=== PATIENT | female | born 1950 | race Caucasian/White ===

== ENCOUNTER 2017-06-02 21:00 | Inpatient (IN) | payer MEDICAID, MEDICARE, OTHER, SELFPAY ==
[~2017-06-02] VITALS: Ht 165.1 cm; Wt 51.0 kg
[2017-06-02] MEDS ORDERED: ADENOSINE 6 MG/2 ML IVPush ONE ×3 (21:30→22:30)
[2017-06-02] MEDS ORDERED: SODIUM CHLORIDE 0.9% 1,000ML IVBOLUS ONE (21:30)
[2017-06-02] MEDS ORDERED: SODIUM CHLORIDE FLUSH 10ML SYR IVF ONE (21:30)
[2017-06-02] MEDS ORDERED: ADENOSINE 6 MG/2 ML ONE ×3 (21:31→22:23)
[2017-06-02 21:59] LABS: HEMATOCRIT 39.7 % (34.6-47.8); HEMOGLOBIN 13.3 g/dL (11.7-16.4); WHITE BLOOD COUNT 8.3 x10^3/uL (3.4-10)
[2017-06-02 22:08] LABS: ASPARTATE AMINO TRANSFERASE 36 U/L (15-37); BLOOD UREA NITROGEN 11 mg/dL (7-18)
[2017-06-02 22:13] LABS: IS PT STATUS REG ER OR PRE ER? YES
[2017-06-02] MEDS ORDERED: ONDANSETRON 2MG/ML, 2ML ONE (22:23)
[2017-06-02] MEDS ORDERED: ONDANSETRON 2MG/ML, 2ML IVPush ONE (23:00)
[2017-06-02] MEDS ORDERED: PROPOFOL 10 MG/ML, 20ML ONE (23:47)
[2017-06-02 23:51] LABS: DAU SCREEN DISCLAIMER
[2017-06-02 23:56] LABS: PATH.CAST-FLAG NOT PRESENT; SPERM-FLAG NOT PRESENT; SRC-FLAG NOT PRESENT; XTAL-FLAG NOT PRESENT; YLC-FLAG NOT PRESENT
[2017-06-03] MEDS ORDERED: PROPOFOL 10 MG/ML, 20ML IVPush ONE
[2017-06-03] MEDS ORDERED: SODIUM CHLORIDE 0.9% 1,000ML IVBOLUS ONE (00:30)
[2017-06-03] MEDS ORDERED: LORazepam 2 MG/ML, 1ML IVPush PRN (00:30)
[2017-06-03] MEDS ORDERED: ASPIRIN 325 MG TABLET PO ONE (00:30)
[2017-06-03] MEDS: AMIODARONE 150 MG in DEXTROSE 5% 100 ML IV ONE ×2 (00:30→01:34)
[2017-06-03] MEDS ORDERED: ONDANSETRON 2MG/ML, 2ML IV PRN (00:30)
[2017-06-03] MEDS: METOPROLOL TARTRATE 25 MG TABLET PO SCH ×2 (00:30→07:44)
[2017-06-03] MEDS ORDERED: AMIODARONE 900 MG in DEXTROSE 5% 482 ML IV PRN (00:30)
[2017-06-03] MEDS ORDERED: HYDROmorphone 2 MG/ML, 1ML IVPush PRN (00:30)
[2017-06-03] MEDS ORDERED: FILTER 0.22 MICRON IV ONE (00:30)
[2017-06-03] MEDS ORDERED: OMNIPAQUE 350 MG/ML, 100ML BOTTLE ONE (02:43)
[2017-06-03] MEDS ORDERED: ENOXAPARIN 40 MG/0.4 ML SQ SCH (03:00)
[2017-06-03 03:05] VITALS: BP 142/90
[2017-06-03 04:18] LABS: IS PT STATUS REG ER OR PRE ER? NO
[2017-06-03] MEDS ORDERED: ASPIRIN 325 MG TABLET EC ONE (06:25)
[2017-06-03 07:19] VITALS: BP 120/80
[2017-06-03] MEDS: SODIUM CHLORIDE FLUSH 10ML SYR IVF SCH ×2 (07:46→20:35)
[2017-06-03] MEDS: FAMOTIDINE 20 MG/2 ML IVPush SCH ×2 (07:46→21:43)
[2017-06-03] MEDS ORDERED: HALOPERIDOL 5 MG/ML ONE (08:45)
[2017-06-03] MEDS ORDERED: HALOPERIDOL 5 MG/ML IM ONE (09:00)
[2017-06-03] MEDS: PROPYLTHIOURACIL 50 MG TABLET PO SCH ×3 (11:44→20:36)
[2017-06-03] MEDS: HYDROCORTISONE 100 MG INJ. IVPush SCH ×2 (11:44→19:04)
[2017-06-03] MEDS: ESMOLOL/NS PMX 250 ML IV PRN (11:51)
[2017-06-03 12:04] LABS: IS PT STATUS REG ER OR PRE ER? NO
[2017-06-03] MEDS: POTASSIUM IODIDE ORAL.SOLN 1 GM/ML PO SCH ×2 (13:15→20:18)
[2017-06-03] MEDS: SODIUM CHLORIDE 0.9% 1,000 ML IV SCH ×2 (14:14→20:18)
[2017-06-03] MEDS: VANCOMYCIN 50 MG/ML ORAL SUSP PO SCH ×2 (14:15→20:18)
[2017-06-03] MEDS ORDERED: CHOLESTYRAMINE LIGHT 4GM PACKET PO SCH (15:00)
[2017-06-03 15:01] LABS: IS PT STATUS REG ER OR PRE ER? NO
[2017-06-03] MEDS: CHOLESTYRAMINE LIGHT 4GM PACKET PO SCH ×2 (16:00→22:00)
[2017-06-03] MEDS ORDERED: HEPARIN 5,000 UNITS/ML, 1ML IV ONE (18:30)
[2017-06-03] MEDS ORDERED: HEPARIN 25,000 UNITS/500ML PMX 500 ML IV PRN (18:30)
[2017-06-03] MEDS: ATORVASTATIN 40 MG TABLET PO SCH (20:36)
[2017-06-04 00:57] LABS: IS PT STATUS REG ER OR PRE ER? NO
[2017-06-04] MEDS: PROPYLTHIOURACIL 50 MG TABLET PO SCH ×6 (01:08→20:48)
[2017-06-04] MEDS: VANCOMYCIN 50 MG/ML ORAL SUSP PO SCH ×4 (02:20→19:47)
[2017-06-04] MEDS: POTASSIUM IODIDE ORAL.SOLN 1 GM/ML PO SCH ×4 (02:20→19:48)
[2017-06-04] MEDS: HYDROCORTISONE 100 MG INJ. IVPush SCH ×3 (03:17→18:02)
[2017-06-04] MEDS: SODIUM CHLORIDE 0.9% 1,000 ML IV SCH ×2 (04:33→17:08)
[2017-06-04 05:00] VITALS: BP 152/95
[2017-06-04 05:08] LABS: HEMATOCRIT 30.9 % (34.6-47.8); HEMOGLOBIN 10.4 g/dL (11.7-16.4)
[2017-06-04 05:14] LABS: BLOOD UREA NITROGEN 18 mg/dL (7-18)
[2017-06-04 05:17] LABS: ASPARTATE AMINO TRANSFERASE 143 U/L (15-37)
[2017-06-04] MEDS: HEPARIN 5,000 UNITS/ML, 1ML IV PRN ×2 (05:33→13:05)
[2017-06-04] MEDS: ESMOLOL/NS PMX 250 ML IV PRN (05:37)
[2017-06-04] MEDS: CHOLESTYRAMINE 4GM PACKET PO SCH ×4 (06:00→21:55)
[2017-06-04] MEDS ORDERED: ENOXAPARIN 40 MG/0.4 ML SQ SCH (07:00)
[2017-06-04] MEDS ORDERED: MAGNESIUM SULFATE PMX 4GM/100M 100 ML IVPB ONE (09:00)
[2017-06-04] MEDS: FAMOTIDINE 20 MG/2 ML IVPush SCH ×2 (09:31→20:47)
[2017-06-04] MEDS: SODIUM CHLORIDE FLUSH 10ML SYR IVF SCH ×2 (09:32→20:46)
[2017-06-04 12:06] LABS: HIT LOT CART23835/KIT23844
[2017-06-04 14:01] LABS: HIT OBC PASS
[2017-06-04 14:06] LABS: HIT RESULT POSITIVE (NEGATIVE)
[2017-06-04] MEDS: THIAMINE 100 MG in SODIUM CHLORIDE 0.9% 50 ML IV SCH (14:25)
[2017-06-04] MEDS: METOPROLOL TARTRATE 25 MG TABLET PO SCH (18:03)
[2017-06-04] MEDS: ATORVASTATIN 40 MG TABLET PO SCH (20:47)
[2017-06-05] MEDS: SODIUM CHLORIDE 0.9% 1,000 ML IV SCH ×2 (00:23→08:56)
[2017-06-05] MEDS: METOPROLOL TARTRATE 25 MG TABLET PO SCH ×2 (00:24→05:43)
[2017-06-05] MEDS: PROPYLTHIOURACIL 50 MG TABLET PO SCH ×6 (01:55→22:56)
[2017-06-05] MEDS: POTASSIUM IODIDE ORAL.SOLN 1 GM/ML PO SCH ×4 (01:58→21:00)
[2017-06-05] MEDS: VANCOMYCIN 50 MG/ML ORAL SUSP PO SCH ×4 (01:58→20:51)
[2017-06-05] MEDS: HYDROCORTISONE 100 MG INJ. IVPush SCH ×3 (03:25→19:36)
[2017-06-05 04:17] LABS: HEMATOCRIT 31.6 % (34.6-47.8); HEMOGLOBIN 10.5 g/dL (11.7-16.4); WHITE BLOOD COUNT 9.3 x10^3/uL (3.4-10)
[2017-06-05 04:29] LABS: ASPARTATE AMINO TRANSFERASE 220 U/L (15-37); BLOOD UREA NITROGEN 21 mg/dL (7-18)
[2017-06-05 05:00] VITALS: BP 144/74
[2017-06-05] MEDS: CHOLESTYRAMINE 4GM PACKET PO SCH ×4 (06:30→20:51)
[2017-06-05] MEDS: FAMOTIDINE 20 MG/2 ML IVPush SCH ×2 (08:41→20:51)
[2017-06-05] MEDS: SODIUM CHLORIDE FLUSH 10ML SYR IVF SCH ×2 (08:44→20:52)
[2017-06-05] MEDS: CLOPIDOGREL 75 MG TABLET PO SCH (08:44)
[2017-06-05 09:14] LABS: ABG COLLECTION SITE LEFT RADIAL
[2017-06-05 09:15] LABS: COLLATERAL CIRCULATION TESTING NORMAL; FIO2 ROOM AIR %
[2017-06-05] MEDS ORDERED: SODIUM CHLORIDE 0.45% 1,000 ML IV SCH (09:30)
[2017-06-05] MEDS: SODIUM CHLORIDE 0.45% 1,000 ML IV SCH (11:19)
[2017-06-05] MEDS: METOPROLOL TARTRATE 50 MG TABLET PO SCH ×2 (11:21→20:51)
[2017-06-05] MEDS: THIAMINE 100 MG in SODIUM CHLORIDE 0.9% 50 ML IV SCH (14:23)
[2017-06-05] MEDS: ATORVASTATIN 40 MG TABLET PO SCH (20:51)
[2017-06-05] MEDS: LEVETIRACETAM 500 MG TABLET PO SCH (22:56)
[2017-06-06] MEDS: VANCOMYCIN 50 MG/ML ORAL SUSP PO SCH ×4 (02:11→20:03)
[2017-06-06] MEDS: POTASSIUM IODIDE ORAL.SOLN 1 GM/ML PO SCH ×4 (02:11→20:03)
[2017-06-06] MEDS: HYDROCORTISONE 100 MG INJ. IVPush SCH ×3 (03:03→20:02)
[2017-06-06] MEDS: PROPYLTHIOURACIL 50 MG TABLET PO SCH ×5 (03:06→20:02)
[2017-06-06] MEDS: METOPROLOL TARTRATE 50 MG TABLET PO SCH ×3 (03:58→20:02)
[2017-06-06 05:00] VITALS: BP 157/85
[2017-06-06] MEDS: SODIUM CHLORIDE 0.45% 1,000 ML IV SCH (05:54)
[2017-06-06] MEDS: CHOLESTYRAMINE 4GM PACKET PO SCH ×4 (06:07→20:03)
[2017-06-06 06:48] LABS: HEMOGLOBIN 11.8 g/dL (11.7-16.4); WHITE BLOOD COUNT 7.6 x10^3/uL (3.4-10)
[2017-06-06 06:55] LABS: ASPARTATE AMINO TRANSFERASE 213 U/L (15-37); BLOOD UREA NITROGEN 20 mg/dL (7-18)
[2017-06-06 07:13] LABS: DIFF TOTAL CELLS COUNTED 100 CELL DIFF
[2017-06-06 07:21] LABS: VERIFY COUNTS? YES
[2017-06-06 07:22] LABS: ANISOCYTOSIS 1+; OVALOCYTES 1+
[2017-06-06 07:23] LABS: POLYCHROMASIA 1+
[2017-06-06] MEDS: CLOPIDOGREL 75 MG TABLET PO SCH (09:05)
[2017-06-06] MEDS: FAMOTIDINE 20 MG/2 ML IVPush SCH ×2 (09:05→20:03)
[2017-06-06] MEDS: LEVETIRACETAM 500 MG TABLET PO SCH ×2 (09:05→20:03)
[2017-06-06] MEDS: SODIUM CHLORIDE FLUSH 10ML SYR IVF SCH ×2 (09:06→20:04)
[2017-06-06 13:08] VITALS: BP 164/97
[2017-06-06] MEDS: THIAMINE 100 MG in SODIUM CHLORIDE 0.9% 50 ML IV SCH (14:59)
[2017-06-06 16:18] VITALS: BP 161/90
[2017-06-06 19:58] VITALS: BP 149/85
[2017-06-06] MEDS: ATORVASTATIN 40 MG TABLET PO SCH (20:03)
[2017-06-07] MEDS: PROPYLTHIOURACIL 50 MG TABLET PO SCH ×7 (00:46→23:53)
[2017-06-07] MEDS: HYDROCORTISONE 100 MG INJ. IVPush SCH ×3 (03:22→21:18)
[2017-06-07] MEDS: POTASSIUM IODIDE ORAL.SOLN 1 GM/ML PO SCH ×4 (03:22→23:53)
[2017-06-07 03:23] VITALS: BP 140/82
[2017-06-07] MEDS: METOPROLOL TARTRATE 50 MG TABLET PO SCH ×3 (03:23→23:53)
[2017-06-07] MEDS: VANCOMYCIN 50 MG/ML ORAL SUSP PO SCH ×4 (03:23→21:18)
[2017-06-07] MEDS: CHOLESTYRAMINE 4GM PACKET PO SCH ×4 (05:49→21:21)
[2017-06-07 05:56] LABS: HEMATOCRIT 32.6 % (34.6-47.8); HEMOGLOBIN 10.9 g/dL (11.7-16.4); WHITE BLOOD COUNT 9.8 x10^3/uL (3.4-10)
[2017-06-07 06:21] LABS: ASPARTATE AMINO TRANSFERASE 114 U/L (15-37); BLOOD UREA NITROGEN 18 mg/dL (7-18)
[2017-06-07 08:45] VITALS: BP 168/100
[2017-06-07] MEDS: FAMOTIDINE 20 MG/2 ML IVPush SCH ×2 (08:54→21:18)
[2017-06-07] MEDS: LEVETIRACETAM 500 MG TABLET PO SCH ×2 (08:54→21:19)
[2017-06-07] MEDS: CLOPIDOGREL 75 MG TABLET PO SCH (08:54)
[2017-06-07] MEDS: SODIUM CHLORIDE FLUSH 10ML SYR IVF SCH ×2 (08:54→21:19)
[2017-06-07 14:30] VITALS: BP 164/86
[2017-06-07] MEDS: THIAMINE 100 MG in SODIUM CHLORIDE 0.9% 50 ML IV SCH (17:44)
[2017-06-07] MEDS: LISINOPRIL 10 MG TABLET PO SCH (17:45)
[2017-06-07 20:40] VITALS: BP 174/93
[2017-06-07] MEDS: ATORVASTATIN 40 MG TABLET PO SCH (21:18)
[2017-06-07] MEDS: hydrALAzine 20 MG/ML, 1ML IVPush PRN (21:45)
[2017-06-08 01:08] VITALS: BP_SYST 177; BP_SYST 186; BP_DIAS 84; BP_DIAS 91
[2017-06-08] MEDS: hydrALAzine 20 MG/ML, 1ML IVPush PRN (02:17)
[2017-06-08] MEDS: HYDROCORTISONE 100 MG INJ. IVPush SCH ×3 (03:56→21:04)
[2017-06-08] MEDS: VANCOMYCIN 50 MG/ML ORAL SUSP PO SCH ×4 (03:56→21:11)
[2017-06-08 04:04] VITALS: BP 164/76
[2017-06-08] MEDS: PROPYLTHIOURACIL 50 MG TABLET PO SCH ×5 (04:51→21:06)
[2017-06-08 05:28] LABS: ABG COLLECTION SITE LEFT RADIAL; COLLATERAL CIRCULATION TESTING NORMAL
[2017-06-08 05:33] LABS: HEMOGLOBIN 10.8 g/dL (11.7-16.4); WHITE BLOOD COUNT 9.7 x10^3/uL (3.4-10)
[2017-06-08 05:40] LABS: ASPARTATE AMINO TRANSFERASE 45 U/L (15-37); BLOOD UREA NITROGEN 16 mg/dL (7-18)
[2017-06-08] MEDS: POTASSIUM IODIDE ORAL.SOLN 1 GM/ML PO SCH ×4 (06:09→21:00)
[2017-06-08] MEDS: CHOLESTYRAMINE 4GM PACKET PO SCH ×3 (06:09→15:35)
[2017-06-08] MEDS: METOPROLOL TARTRATE 50 MG TABLET PO SCH ×3 (06:09→20:30)
[2017-06-08] MEDS: CLOPIDOGREL 75 MG TABLET PO SCH (08:29)
[2017-06-08] MEDS: LEVETIRACETAM 500 MG TABLET PO SCH ×2 (08:29→21:07)
[2017-06-08 08:41] VITALS: BP 163/91
[2017-06-08] MEDS: LISINOPRIL 10 MG TABLET PO SCH (10:27)
[2017-06-08] MEDS: FAMOTIDINE 20 MG/2 ML IVPush SCH (10:28)
[2017-06-08] MEDS: SODIUM CHLORIDE FLUSH 10ML SYR IVF SCH (10:28)
[2017-06-08] MEDS ORDERED: POTASSIUM PHOSPHATE 44 MEQ in SODIUM CHLORIDE 0.9% 500 ML IV ONE (12:00)
[2017-06-08 13:29] VITALS: BP 177/83
[2017-06-08] MEDS: THIAMINE 100 MG in SODIUM CHLORIDE 0.9% 50 ML IV SCH (16:24)
[2017-06-08] MEDS ORDERED: ALBUTEROL/IPRATROPIUM 2.5MG/0.5MG, 3 ML ONE (16:43)
[2017-06-08] MEDS ORDERED: ALBUTEROL/IPRATROPIUM 2.5MG/0.5MG, 3 ML NPPB PRN (17:30)
[2017-06-08] MEDS: ALBUTEROL/IPRATROPIUM 2.5MG/0.5MG, 3 ML NPPB SCH ×2 (18:00→22:00)
[2017-06-08 19:46] VITALS: BP 161/89
[2017-06-08] MEDS: ATORVASTATIN 40 MG TABLET PO SCH (21:07)
[2017-06-08] MEDS: PANTOPROZOLE 40MG TABLET PO SCH (21:07)
[2017-06-08] MEDS ORDERED: FUROSEMIDE 40 MG/4 ML IV ONE (23:00)
[2017-06-08 23:02] VITALS: BP 160/76
[2017-06-08 23:16] LABS: ABG COLLECTION SITE LEFT RADIAL; COLLATERAL CIRCULATION TESTING NORMAL
[2017-06-09] MEDS: PROPYLTHIOURACIL 50 MG TABLET PO SCH ×6 (00:30→21:34)
[2017-06-09] MEDS: MEROPENEM 1 GM in SODIUM CHLORIDE 0.9% 100 ML IV SCH ×3 (00:39→17:51)
[2017-06-09] MEDS: SODIUM CHLORIDE FLUSH 10ML SYR IVF SCH ×3 (00:39→21:33)
[2017-06-09] MEDS: POTASSIUM IODIDE ORAL.SOLN 1 GM/ML PO SCH ×4 (03:00→21:34)
[2017-06-09] MEDS: HYDROCORTISONE 100 MG INJ. IVPush SCH ×3 (03:34→19:42)
[2017-06-09 04:31] LABS: ABG COLLECTION SITE LEFT RADIAL; COLLATERAL CIRCULATION TESTING NORMAL
[2017-06-09 04:52] LABS: ASPARTATE AMINO TRANSFERASE 29 U/L (15-37); BLOOD UREA NITROGEN 16 mg/dL (7-18)
[2017-06-09 04:53] LABS: HEMATOCRIT 31.8 % (34.6-47.8); HEMOGLOBIN 10.8 g/dL (11.7-16.4); WHITE BLOOD COUNT 8.8 x10^3/uL (3.4-10)
[2017-06-09] MEDS: VANCOMYCIN 50 MG/ML ORAL SUSP PO SCH ×4 (05:17→21:34)
[2017-06-09] MEDS: METOPROLOL TARTRATE 50 MG TABLET PO SCH ×2 (05:17→17:53)
[2017-06-09] MEDS ORDERED: POTASSIUM CHLORIDE 20 MEQ TAB.ER.PRT PO ONE (06:30)
[2017-06-09] MEDS: ALBUTEROL/IPRATROPIUM 2.5MG/0.5MG, 3 ML NPPB SCH ×3 (08:20→20:00)
[2017-06-09] MEDS: PANTOPROZOLE 40MG TABLET PO SCH ×2 (08:45→21:34)
[2017-06-09] MEDS: CLOPIDOGREL 75 MG TABLET PO SCH (08:45)
[2017-06-09] MEDS: LEVETIRACETAM 500 MG TABLET PO SCH ×2 (08:45→21:34)
[2017-06-09] MEDS: LISINOPRIL 10 MG TABLET PO SCH (08:46)
[2017-06-09] MEDS ORDERED: POTASSIUM CHLORIDE 20 MEQ TAB.ER.PRT PO SCH (12:30)
[2017-06-09] MEDS: ACETAMINOPHEN 325 MG TABLET PO PRN ×2 (14:23→22:34)
[2017-06-09] MEDS ORDERED: ALBUTEROL/IPRATROPIUM 2.5MG/0.5MG, 3 ML NPPB SCH (16:00)
[2017-06-09] MEDS: THIAMINE 100 MG in SODIUM CHLORIDE 0.9% 50 ML IV SCH (17:51)
[2017-06-09] MEDS: ATORVASTATIN 40 MG TABLET PO SCH (21:34)
[2017-06-10] MEDS: MEROPENEM 1 GM in SODIUM CHLORIDE 0.9% 100 ML IV SCH ×2 (00:19→08:37)
[2017-06-10] MEDS: PROPYLTHIOURACIL 50 MG TABLET PO SCH ×2 (00:29→05:40)
[2017-06-10] MEDS: METOPROLOL TARTRATE 50 MG TABLET PO SCH ×2 (00:29→21:06)
[2017-06-10] MEDS: POTASSIUM IODIDE ORAL.SOLN 1 GM/ML PO SCH (04:28)
[2017-06-10] MEDS: VANCOMYCIN 50 MG/ML ORAL SUSP PO SCH ×4 (04:29→21:05)
[2017-06-10] MEDS: HYDROCORTISONE 100 MG INJ. IVPush SCH (04:29)
[2017-06-10 04:48] LABS: BLOOD UREA NITROGEN 11 mg/dL (7-18)
[2017-06-10] MEDS: POTASSIUM CHLORIDE 20 MEQ TAB.ER.PRT PO SCH ×3 (05:42→21:06)
[2017-06-10] MEDS: ALBUTEROL/IPRATROPIUM 2.5MG/0.5MG, 3 ML NPPB SCH (07:44)
[2017-06-10] MEDS: PANTOPROZOLE 40MG TABLET PO SCH ×2 (08:33→20:03)
[2017-06-10] MEDS: CLOPIDOGREL 75 MG TABLET PO SCH (08:34)
[2017-06-10] MEDS: LISINOPRIL 10 MG TABLET PO SCH (08:34)
[2017-06-10] MEDS: LEVETIRACETAM 500 MG TABLET PO SCH ×2 (08:34→21:06)
[2017-06-10] MEDS: SODIUM CHLORIDE FLUSH 10ML SYR IVF SCH ×2 (08:37→20:57)
[2017-06-10] MEDS: FUROSEMIDE 20 MG TABLET PO SCH (09:52)
[2017-06-10 12:30] VITALS: BP 133/67
[2017-06-10] MEDS: THIAMINE 100 MG in SODIUM CHLORIDE 0.9% 50 ML IV SCH (18:36)
[2017-06-10 19:09] VITALS: BP 148/68
[2017-06-10] MEDS: ATORVASTATIN 40 MG TABLET PO SCH (21:06)
[2017-06-11 01:40] VITALS: BP 142/69
[2017-06-11] MEDS: VANCOMYCIN 50 MG/ML ORAL SUSP PO SCH ×4 (03:15→21:10)
[2017-06-11 06:17] LABS: BLOOD UREA NITROGEN 14 mg/dL (7-18)
[2017-06-11 06:58] VITALS: BP 138/66
[2017-06-11] MEDS: SODIUM CHLORIDE FLUSH 10ML SYR IVF SCH ×2 (09:00→21:11)
[2017-06-11] MEDS: POTASSIUM CHLORIDE 20 MEQ TAB.ER.PRT PO SCH ×2 (09:18→21:10)
[2017-06-11] MEDS: FUROSEMIDE 20 MG TABLET PO SCH (09:19)
[2017-06-11] MEDS: CLOPIDOGREL 75 MG TABLET PO SCH (09:19)
[2017-06-11] MEDS: PANTOPROZOLE 40MG TABLET PO SCH ×2 (09:20→21:10)
[2017-06-11] MEDS: LISINOPRIL 10 MG TABLET PO SCH (09:20)
[2017-06-11] MEDS: METOPROLOL TARTRATE 50 MG TABLET PO SCH ×2 (09:20→21:10)
[2017-06-11] MEDS: LEVETIRACETAM 500 MG TABLET PO SCH ×2 (09:20→21:10)
[2017-06-11] MEDS ORDERED: MAGNESIUM SULFATE PMX 2GM/50ML 50 ML IV ONE (11:00)
[2017-06-11 13:56] VITALS: BP 138/74
[2017-06-11] MEDS ORDERED: POTASSIUM CHLORIDE 20 MEQ TAB.ER.PRT PO SCH ×2 (16:00)
[2017-06-11] MEDS ORDERED: hydrALAzine 20 MG/ML, 1ML IVPush PRN (16:00)
[2017-06-11] MEDS ORDERED: ONDANSETRON 2MG/ML, 2ML IV PRN (16:00)
[2017-06-11] MEDS ORDERED: ACETAMINOPHEN 325 MG TABLET PO PRN (16:00)
[2017-06-11] MEDS: THIAMINE 100 MG in SODIUM CHLORIDE 0.9% 50 ML IV SCH (16:53)
[2017-06-11 19:04] VITALS: BP 127/65
[2017-06-11] MEDS ORDERED: SODIUM CHLORIDE FLUSH 10ML SYR IVF SCH (21:00)
[2017-06-11] MEDS: ATORVASTATIN 40 MG TABLET PO SCH (21:10)
[2017-06-12 01:21] VITALS: BP 146/72
[2017-06-12] MEDS: VANCOMYCIN 50 MG/ML ORAL SUSP PO SCH ×4 (02:40→20:47)
[2017-06-12 05:50] LABS: BLOOD UREA NITROGEN 18 mg/dL (7-18)
[2017-06-12 07:16] VITALS: BP 124/74
[2017-06-12] MEDS: FUROSEMIDE 20 MG TABLET PO SCH (08:36)
[2017-06-12] MEDS: METOPROLOL TARTRATE 50 MG TABLET PO SCH ×2 (08:36→20:48)
[2017-06-12] MEDS: LEVETIRACETAM 500 MG TABLET PO SCH ×2 (08:36→20:47)
[2017-06-12] MEDS: POTASSIUM CHLORIDE 20 MEQ TAB.ER.PRT PO SCH ×2 (08:36→20:47)
[2017-06-12] MEDS: CLOPIDOGREL 75 MG TABLET PO SCH (08:36)
[2017-06-12] MEDS: LISINOPRIL 10 MG TABLET PO SCH (08:36)
[2017-06-12] MEDS: SODIUM CHLORIDE FLUSH 10ML SYR IVF SCH ×2 (08:37→20:47)
[2017-06-12] MEDS: PANTOPROZOLE 40MG TABLET PO SCH ×2 (08:37→20:47)
[2017-06-12 13:16] VITALS: BP 127/64
[2017-06-12] MEDS: THIAMINE 100 MG in SODIUM CHLORIDE 0.9% 50 ML IV SCH (17:47)
[2017-06-12 18:55] VITALS: BP 129/72
[2017-06-12] MEDS: ATORVASTATIN 40 MG TABLET PO SCH (20:47)
[2017-06-13 00:44] VITALS: BP 133/65
[2017-06-13] MEDS: VANCOMYCIN 50 MG/ML ORAL SUSP PO SCH ×4 (02:35→20:48)
[2017-06-13 08:16] VITALS: BP 105/51
[2017-06-13] MEDS: PANTOPROZOLE 40MG TABLET PO SCH ×2 (08:54→19:28)
[2017-06-13] MEDS: POTASSIUM CHLORIDE 20 MEQ TAB.ER.PRT PO SCH ×2 (08:55→20:49)
[2017-06-13] MEDS: FUROSEMIDE 20 MG TABLET PO SCH (08:56)
[2017-06-13] MEDS: LEVETIRACETAM 500 MG TABLET PO SCH ×2 (08:56→20:48)
[2017-06-13] MEDS: CLOPIDOGREL 75 MG TABLET PO SCH (08:57)
[2017-06-13] MEDS: LISINOPRIL 10 MG TABLET PO SCH (08:57)
[2017-06-13] MEDS: METOPROLOL TARTRATE 50 MG TABLET PO SCH ×2 (08:58→20:49)
[2017-06-13] MEDS: SODIUM CHLORIDE FLUSH 10ML SYR IVF SCH ×2 (09:00→20:48)
[2017-06-13 14:39] VITALS: BP 116/74
[2017-06-13] MEDS: LACTOBACILLUS CHEW TABLET PO SCH ×2 (16:18→20:49)
[2017-06-13] MEDS: THIAMINE 100 MG in SODIUM CHLORIDE 0.9% 50 ML IV SCH (19:28)
[2017-06-13 19:32] VITALS: BP 103/51
[2017-06-13] MEDS: ATORVASTATIN 40 MG TABLET PO SCH (20:50)
[2017-06-14] MEDS: ACETAMINOPHEN 325 MG TABLET PO PRN ×3 (01:01→20:29)
[2017-06-14 02:15] VITALS: BP 129/62
[2017-06-14] MEDS: VANCOMYCIN 50 MG/ML ORAL SUSP PO SCH ×4 (02:50→20:16)
[2017-06-14 06:25] LABS: HEMATOCRIT 39.1 % (34.6-47.8); HEMOGLOBIN 13.2 g/dL (11.7-16.4); WHITE BLOOD COUNT 15.9 x10^3/uL (3.4-10)
[2017-06-14 06:36] LABS: BLOOD UREA NITROGEN 34 mg/dL (7-18)
[2017-06-14 07:25] VITALS: BP 118/61
[2017-06-14] MEDS ORDERED: MAGNESIUM SULFATE PMX 2GM/50ML 50 ML IV ONE (07:30)
[2017-06-14] MEDS: FUROSEMIDE 20 MG TABLET PO SCH (08:15)
[2017-06-14] MEDS: SODIUM CHLORIDE FLUSH 10ML SYR IVF SCH ×2 (09:00→20:17)
[2017-06-14] MEDS: LEVETIRACETAM 500 MG TABLET PO SCH ×2 (09:11→20:16)
[2017-06-14] MEDS: PANTOPROZOLE 40MG TABLET PO SCH ×2 (09:11→20:16)
[2017-06-14] MEDS: LACTOBACILLUS CHEW TABLET PO SCH ×3 (09:11→20:16)
[2017-06-14] MEDS: METOPROLOL TARTRATE 50 MG TABLET PO SCH ×2 (09:11→20:16)
[2017-06-14] MEDS: CLOPIDOGREL 75 MG TABLET PO SCH (09:12)
[2017-06-14 11:30] VITALS: BP 113/62
[2017-06-14] MEDS: LISINOPRIL 10 MG TABLET PO SCH (11:30)
[2017-06-14 13:12] VITALS: BP 117/53
[2017-06-14 15:12] LABS: BLOOD UREA NITROGEN 39 mg/dL (7-18)
[2017-06-14] MEDS ORDERED: SODIUM CHLORIDE 0.9% 1,000ML IVBOLUS ONE (15:30)
[2017-06-14] MEDS: THIAMINE 100 MG in SODIUM CHLORIDE 0.9% 50 ML IV SCH (19:18)
[2017-06-14 19:32] VITALS: BP 109/52
[2017-06-14] MEDS: ATORVASTATIN 40 MG TABLET PO SCH (20:16)
[2017-06-15 01:23] VITALS: BP 97/57
[2017-06-15] MEDS: VANCOMYCIN 50 MG/ML ORAL SUSP PO SCH ×4 (03:28→21:49)
[2017-06-15] MEDS: ACETAMINOPHEN 325 MG TABLET PO PRN ×3 (04:25→21:48)
[2017-06-15 07:54] VITALS: BP 109/54
[2017-06-15] MEDS: LISINOPRIL 10 MG TABLET PO SCH (08:28)
[2017-06-15] MEDS: LACTOBACILLUS CHEW TABLET PO SCH ×3 (08:28→21:49)
[2017-06-15] MEDS: METOPROLOL TARTRATE 50 MG TABLET PO SCH ×2 (08:29→21:00)
[2017-06-15] MEDS: FUROSEMIDE 20 MG TABLET PO SCH (08:29)
[2017-06-15] MEDS: LEVETIRACETAM 500 MG TABLET PO SCH ×2 (08:30→21:49)
[2017-06-15] MEDS: PANTOPROZOLE 40MG TABLET PO SCH (08:30)
[2017-06-15] MEDS: CLOPIDOGREL 75 MG TABLET PO SCH (08:30)
[2017-06-15] MEDS: SODIUM CHLORIDE FLUSH 10ML SYR IVF SCH ×2 (08:51→21:49)
[2017-06-15 12:30] LABS: BLOOD UREA NITROGEN 44 mg/dL (7-18)
[2017-06-15] MEDS: CHOLECALCIFEROL 1,000 UNIT TABLET PO SCH (13:39)
[2017-06-15 14:30] VITALS: BP 101/52
[2017-06-15] MEDS: THIAMINE 100 MG in SODIUM CHLORIDE 0.9% 50 ML IV SCH (18:11)
[2017-06-15 19:29] VITALS: BP 91/52
[2017-06-15] MEDS: METRONIDAZOLE PMX 500MG/100ML 100 ML IV SCH (19:41)
[2017-06-15] MEDS: ATORVASTATIN 40 MG TABLET PO SCH (21:49)
[2017-06-16 00:26] VITALS: BP 92/53
[2017-06-16] MEDS: VANCOMYCIN 50 MG/ML ORAL SUSP PO SCH ×4 (03:07→21:18)
[2017-06-16 05:21] LABS: HEMATOCRIT 34.6 % (34.6-47.8); HEMOGLOBIN 11.7 g/dL (11.7-16.4); WHITE BLOOD COUNT 16.4 x10^3/uL (3.4-10)
[2017-06-16 05:42] LABS: BLOOD UREA NITROGEN 52 mg/dL (7-18)
[2017-06-16 07:18] VITALS: BP 107/58
[2017-06-16] MEDS ORDERED: MORPHINE SULFATE 4 MG/ML, 1ML IVPush PRN (07:30)
[2017-06-16] MEDS: METRONIDAZOLE PMX 500MG/100ML 100 ML IV SCH ×4 (07:54→18:24)
[2017-06-16] MEDS: METOPROLOL TARTRATE 50 MG TABLET PO SCH ×3 (07:55→21:00)
[2017-06-16] MEDS: CHOLECALCIFEROL 1,000 UNIT TABLET PO SCH (07:55)
[2017-06-16] MEDS: LACTOBACILLUS CHEW TABLET PO SCH ×3 (07:55→21:19)
[2017-06-16] MEDS: FUROSEMIDE 20 MG TABLET PO SCH ×2 (07:56→09:00)
[2017-06-16] MEDS: CLOPIDOGREL 75 MG TABLET PO SCH (07:56)
[2017-06-16] MEDS: SODIUM CHLORIDE FLUSH 10ML SYR IVF SCH ×2 (07:56→21:21)
[2017-06-16] MEDS: LEVETIRACETAM 500 MG TABLET PO SCH ×2 (07:56→21:18)
[2017-06-16] MEDS: ACETAMINOPHEN 325 MG TABLET PO PRN (07:56)
[2017-06-16] MEDS: OMEPRAZOLE 20 MG CAPSULE.DR PO SCH (07:56)
[2017-06-16] MEDS: LISINOPRIL 10 MG TABLET PO SCH ×2 (07:56→09:00)
[2017-06-16] MEDS ORDERED: REGADENOSON 0.4 MG/5 ML SYRINGE ONE (11:25)
[2017-06-16 13:25] VITALS: BP 98/57
[2017-06-16] MEDS: THIAMINE 100 MG in SODIUM CHLORIDE 0.9% 50 ML IV SCH (17:39)
[2017-06-16] MEDS ORDERED: POTASSIUM PHOSPHATE 44 MEQ in SODIUM CHLORIDE 0.9% 500 ML IV ONE (19:00)
[2017-06-16] MEDS ORDERED: CEFTRIAXONE PMX 2GM/50ML 50 ML IV SCH (19:00)
[2017-06-16 21:08] VITALS: BP 98/59
[2017-06-16] MEDS: DOXYCYCLINE 100 MG in DEXTROSE 5% 250 ML IV SCH (21:17)
[2017-06-16] MEDS: ATORVASTATIN 40 MG TABLET PO SCH (21:18)
[2017-06-16] MEDS ORDERED: NEUTRA PHOS K 250 MG TABLET PO ONE (23:30)
[2017-06-17 00:33] VITALS: BP 130/61
[2017-06-17] MEDS: METRONIDAZOLE PMX 500MG/100ML 100 ML IV SCH ×2 (02:58→10:26)
[2017-06-17] MEDS: VANCOMYCIN 50 MG/ML ORAL SUSP PO SCH ×4 (03:01→22:16)
[2017-06-17 05:28] LABS: HEMOGLOBIN 10.9 g/dL (11.7-16.4); WHITE BLOOD COUNT 15.8 x10^3/uL (3.4-10)
[2017-06-17 05:38] LABS: BLOOD UREA NITROGEN 46 mg/dL (7-18)
[2017-06-17] MEDS: DOXYCYCLINE 100 MG in DEXTROSE 5% 250 ML IV SCH ×2 (08:00→08:35)
[2017-06-17 08:27] VITALS: BP 121/58
[2017-06-17] MEDS: CHOLECALCIFEROL 1,000 UNIT TABLET PO SCH (08:35)
[2017-06-17] MEDS: LISINOPRIL 10 MG TABLET PO SCH (08:36)
[2017-06-17] MEDS: CLOPIDOGREL 75 MG TABLET PO SCH (08:36)
[2017-06-17] MEDS: OMEPRAZOLE 20 MG CAPSULE.DR PO SCH (08:37)
[2017-06-17] MEDS: LEVETIRACETAM 500 MG TABLET PO SCH ×2 (08:37→22:16)
[2017-06-17] MEDS: LACTOBACILLUS CHEW TABLET PO SCH ×3 (08:37→22:16)
[2017-06-17] MEDS: METOPROLOL TARTRATE 50 MG TABLET PO SCH ×2 (08:37→21:59)
[2017-06-17] MEDS: FUROSEMIDE 20 MG TABLET PO SCH (08:37)
[2017-06-17] MEDS: SODIUM CHLORIDE FLUSH 10ML SYR IVF SCH ×2 (08:38→21:00)
[2017-06-17 14:31] VITALS: BP 103/57
[2017-06-17] MEDS: ACETAMINOPHEN 325 MG TABLET PO PRN (14:38)
[2017-06-17] MEDS: CEFDINIR 300 MG CAPSULE PO SCH (14:39)
[2017-06-17] MEDS: MAGNESIUM CHLORIDE 64 MG TABLET.DR PO SCH ×2 (14:39→22:16)
[2017-06-17] MEDS ORDERED: TRAM50TA2 PO (15:37)
[2017-06-17] MEDS ORDERED: LISI-167 PO (15:37)
[2017-06-17] MEDS ORDERED: CLOP75TA PO (15:37)
[2017-06-17] MEDS ORDERED: CHOL10003 PO (15:37)
[2017-06-17] MEDS ORDERED: LEVE500T53 PO (15:37)
[2017-06-17] MEDS ORDERED: CEFD300C37 PO (15:37)
[2017-06-17] MEDS ORDERED: ATOR40TA78 PO (15:37)
[2017-06-17] MEDS ORDERED: OMEP-110 PO (15:37)
[2017-06-17] MEDS ORDERED: DOXY100T PO (15:37)
[2017-06-17] MEDS ORDERED: MULT-750 PO (15:37)
[2017-06-17] MEDS ORDERED: ACET325T14 PO (15:37)
[2017-06-17] MEDS ORDERED: FURO20TA3 PO (15:37)
[2017-06-17] MEDS ORDERED: MAGN64TA9 PO (15:37)
[2017-06-17] MEDS ORDERED: VANC1VIA3 PO (15:37)
[2017-06-17] MEDS ORDERED: ACID1TAB7 PO (15:37)
[2017-06-17] MEDS ORDERED: METO50TA82 PO (15:37)
[2017-06-17] MEDS ORDERED: METH10TA6 PO (15:37)
[2017-06-17] MEDS: THIAMINE 100 MG in SODIUM CHLORIDE 0.9% 50 ML IV SCH (17:19)
[2017-06-17 18:40] VITALS: BP 91/53
[2017-06-17] MEDS: ATORVASTATIN 40 MG TABLET PO SCH (22:16)
[2017-06-17] MEDS: DOXYCYCLINE 100MG TABLET PO SCH (22:16)
[2017-06-18 01:08] VITALS: BP 106/54
[2017-06-18] MEDS: CEFDINIR 300 MG CAPSULE PO SCH (01:16)
[2017-06-18] MEDS: VANCOMYCIN 50 MG/ML ORAL SUSP PO SCH ×2 (01:59→07:56)
[2017-06-18 07:02] VITALS: BP 101/55
[2017-06-18] MEDS: LISINOPRIL 10 MG TABLET PO SCH (07:56)
[2017-06-18] MEDS: MAGNESIUM CHLORIDE 64 MG TABLET.DR PO SCH (07:56)
[2017-06-18] MEDS: DOXYCYCLINE 100MG TABLET PO SCH (07:56)
[2017-06-18] MEDS: CHOLECALCIFEROL 1,000 UNIT TABLET PO SCH (07:56)
[2017-06-18] MEDS: SODIUM CHLORIDE FLUSH 10ML SYR IVF SCH (07:57)
[2017-06-18] MEDS: LEVETIRACETAM 500 MG TABLET PO SCH (07:57)
[2017-06-18] MEDS: FUROSEMIDE 20 MG TABLET PO SCH (07:57)
[2017-06-18] MEDS: LACTOBACILLUS CHEW TABLET PO SCH (07:57)
[2017-06-18] MEDS: METOPROLOL TARTRATE 50 MG TABLET PO SCH (07:57)
[2017-06-18] MEDS: CLOPIDOGREL 75 MG TABLET PO SCH (07:57)
[2017-06-18] MEDS: OMEPRAZOLE 20 MG CAPSULE.DR PO SCH (07:57)
[2017-06-27] MEDS ORDERED: ATOR-2 PO (16:10)
[2017-06-27] MEDS ORDERED: METH10TA6 PO (16:13)
[2017-06-27] MEDS ORDERED: CLOP75TA52 PO (16:14)
[2017-06-27] MEDS ORDERED: ACID1TAB7 MT (16:16)
== END 2017-06-18 12:54 | DRG 280 ==
LOC: ED 22:19 → EDIP 06-03 00:21 → 5SO 06-03 02:14 → CCU 06-03 09:37 → 5SO 06-06 13:03 → CCU 06-08 23:20 → 4NOR 06-10 12:13
PROVIDERS: ADMIT Internal Medicine; ATTEND Family Medicine
PROC: 5A2204Z Restoration of Cardiac Rhythm, Single (ICD-10-PCS; principal; 2017-06-02)
DX: I21.4 Non-ST elevation (NSTEMI) myocardial infarction (principal); G93.41 Metabolic encephalopathy; J18.9 Pneumonia, unspecified organism; E05.91 Thyrotoxicosis, unspecified with thyrotoxic crisis or storm; A04.72 Enterocolitis due to Clostridium difficile, not specified as recurrent; E87.2 Acidosis; I42.9 Cardiomyopathy, unspecified; I50.20 Unspecified systolic (congestive) heart failure; F03.90 Unspecified dementia, unspecified severity, without behavioral disturbance, psychotic disturbance, mood disturbance, and anxiety; I47.1 Supraventricular tachycardia; Z96.641 Presence of right artificial hip joint; E07.9 Disorder of thyroid, unspecified; F17.200 Nicotine dependence, unspecified, uncomplicated; E03.9 Hypothyroidism, unspecified; R09.02 Hypoxemia; G40.909 Epilepsy, unspecified, not intractable, without status epilepticus; F41.9 Anxiety disorder, unspecified; Z95.0 Presence of cardiac pacemaker; I25.2 Old myocardial infarction; Z90.710 Acquired absence of both cervix and uterus; Z90.49 Acquired absence of other specified parts of digestive tract; Z88.5 Allergy status to narcotic agent; Z88.0 Allergy status to penicillin; Z90.81 Acquired absence of spleen; Z87.11 Personal history of peptic ulcer disease; S42.031A Displaced fracture of lateral end of right clavicle, initial encounter for closed fracture
CPT/HCPCS: 36415; 36600; 70450; 71010; 71275; 78452; 80048; 80053; 80061; 80307; 81001; 81003; 82140; 82306; 82607; 82803; 83605; 83735; 84100; 84439; 84443; 84481; 84484; 85025; 85379; 85520; 85610; 85730; 86022; 87040; 87081; 87324; 87493; 93005; 93017; 93308; 93321; 93325; 94640; 96361; 96374; 96375; 96376; J0153; J0696; J1644; J1650; J1940; J2185; J2405; J2704; J2785; J3370; J3411; J7060; J7620; Q9967; A9502; C9898; G0479; J0282; J0360; J1630; J1720; J2060; J3475; J7030; J7040; S0028

== ENCOUNTER 2017-11-15 15:22 | Inpatient (IN) | payer MEDICARE ==
[~2017-11-15] VITALS: Ht 165.1 cm; Wt 55.6 kg
[~2017-11-15 15:22] MED LIST: ACET325T14 PO; ACID1TAB7 MT; ACID1TAB7 PO; ATOR-2 PO; ATOR40TA78 PO; CEFD300C37 PO; CHOL10003 PO; CLOP75TA PO; CLOP75TA52 PO; DOXY100T PO; FURO20TA3 PO; LEVE500T53 PO; LIOT5TAB3 PO; LISI-167 PO; MAGN64TA9 PO; METH10TA6 PO; METH5TAB6 PO; METO50TA82 PO; MULT-750 PO; OMEP-110 PO; THYR60TA PO; TRAM50TA2 PO; VANC1VIA3 PO
[2017-11-15] MEDS ORDERED: ASPIRIN 81 MG TABLET CHEW ONE (15:57)
[2017-11-15] MEDS ORDERED: ASPIRIN 81 MG TABLET CHEW PO ONE (16:00)
[2017-11-15 16:05] LABS: BASOPHILS # (AUTO) 0.05 x10^3/uL (0-0.1); BASOPHILS % (AUTO) 1 % (0-1); EOSINOPHILS # (AUTO) 0.33 x10^3/uL (0-0.4); EOSINOPHILS % (AUTO) 3 % (1-7); LYMPHOCYTES % (AUTO) 25 % (22-44); MD NO; MEAN CORPUSCULAR HEMOGLOBIN 30.1 pg (27.0-34.8); MEAN CORPUSCULAR HGB CONC 33.7 g/dL (32.4-35.8); MEAN CORPUSCULAR VOLUME 89.4 fL (80-100); MEAN PLATELET VOLUME 8.7 fL (7.4-10.4); MONOCYTES # (AUTO) 0.59 x10^3/uL (0.2-0.8); MONOCYTES % (AUTO) 6 % (2-9); NEUTROPHILS # (AUTO) 6.62 x10^3/uL (1.8-6.8); NEUTROPHILS % (AUTO) 66 % (42-75); PLATELET COUNT 244 x10^3/uL (130-400); RED BLOOD COUNT 4.37 x10^6/uL (3.82-5.3); RED CELL DISTRIBUTION WIDTH 15.7 % (9.6-15.2)
[2017-11-15 16:11] LABS: ALANINE AMINOTRANSFERASE 18 U/L (12-78); ALBUMIN 3.3 g/dL (3.4-5.0); ANION GAP 9 mmol/L (5-15); CALCIUM 8.9 mg/dL (8.5-10.1); CHLORIDE 106 mmol/L (98-107); CREATININE 1.15 mg/dL (0.55-1.02)
[2017-11-15 16:15] LABS: ALKALINE PHOSPHATASE 184 U/L (45-117); BILIRUBIN,TOTAL 0.3 mg/dL (0.2-1.0); TOTAL PROTEIN 8.5 g/dL (6.4-8.2); TROPONIN I < 0.015 ng/mL (0.000-0.045)
[2017-11-15] MEDS ORDERED: SODIUM CHLORIDE 0.9% 1,000ML IVBOLUS ONE (17:00)
[2017-11-15] MEDS ORDERED: hydrALAzine 20 MG/ML, 1ML IVPush PRN (18:30)
[2017-11-15] MEDS ORDERED: NITROGLYCERIN 0.4 MG BOTTLE (25 TABS) SL PRN (18:30)
[2017-11-15] MEDS ORDERED: LABETALOL 5MG/ML, 20ML IVPush PRN (18:30)
[2017-11-15] MEDS ORDERED: TEMAZEPAM 15 MG CAPSULE PO PRN (18:30)
[2017-11-15] MEDS ORDERED: DOCUSATE 100 MG CAPSULE PO PRN (18:30)
[2017-11-15] MEDS ORDERED: ONDANSETRON ODT 4 MG PO PRN (18:30)
[2017-11-15] MEDS ORDERED: ACETAMINOPHEN 325 MG TABLET PO PRN (18:30)
[2017-11-15] MEDS ORDERED: NICOTINE 21 MG/24 HR PATCH.TD24 TD ONE (19:30)
[2017-11-15 19:57] VITALS: BP 170/75
[2017-11-15] MEDS: METOPROLOL TARTRATE 50 MG TABLET PO SCH (20:12)
[2017-11-15 22:23] VITALS: BP 172/72
[2017-11-15 22:34] LABS: TROPONIN I < 0.015 ng/mL (0.000-0.045)
[2017-11-15 22:55] VITALS: BP 156/66
[2017-11-16 01:31] VITALS: BP 164/75
[2017-11-16 03:56] LABS: BASOPHILS # (AUTO) 0.04 x10^3/uL (0-0.1); BASOPHILS % (AUTO) 1 % (0-1); EOSINOPHILS # (AUTO) 0.46 x10^3/uL (0-0.4); EOSINOPHILS % (AUTO) 6 % (1-7); LYMPHOCYTES # (AUTO) 2.36 x10^3/uL (1-3.4); LYMPHOCYTES % (AUTO) 32 % (22-44); MD NO; MEAN CORPUSCULAR HEMOGLOBIN 29.5 pg (27.0-34.8); MEAN CORPUSCULAR HGB CONC 33.2 g/dL (32.4-35.8); MEAN CORPUSCULAR VOLUME 88.7 fL (80-100); MEAN PLATELET VOLUME 8.4 fL (7.4-10.4); MONOCYTES # (AUTO) 0.59 x10^3/uL (0.2-0.8); MONOCYTES % (AUTO) 8 % (2-9); NEUTROPHILS # (AUTO) 3.85 x10^3/uL (1.8-6.8); NEUTROPHILS % (AUTO) 53 % (42-75); PLATELET COUNT 225 x10^3/uL (130-400); RED BLOOD COUNT 3.95 x10^6/uL (3.82-5.3); RED CELL DISTRIBUTION WIDTH 15.8 % (9.6-15.2)
[2017-11-16 04:10] LABS: ANION GAP 6 mmol/L (5-15); CALCIUM 8.8 mg/dL (8.5-10.1); CHLORIDE 113 mmol/L (98-107)
[2017-11-16 04:15] LABS: CREATININE 1.08 mg/dL (0.55-1.02); TROPONIN I < 0.015 ng/mL (0.000-0.045)
[2017-11-16] MEDS ORDERED: THYROID 30 MG TABLET PO SCH (06:00)
[2017-11-16] MEDS: ASPIRIN 325 MG TABLET EC PO SCH (06:07)
[2017-11-16 07:40] VITALS: BP 169/67
[2017-11-16] MEDS ORDERED: SUMATRIPTAN 100 MG TABLET PO ONE (07:45)
[2017-11-16] MEDS ORDERED: SUMATRIPTAN 100 MG TABLET PO PRN (08:00)
[2017-11-16] MEDS ORDERED: METOPROLOL TARTRATE 25 MG TABLET PO PRN (08:00)
[2017-11-16 09:30] LABS: FREE T4 (FREE THYROXINE) 0.53 ng/dL (0.76-1.46)
[2017-11-16] MEDS: METOPROLOL TARTRATE 50 MG TABLET PO SCH ×2 (09:37→20:48)
[2017-11-16] MEDS: LISINOPRIL 10 MG TABLET PO SCH (09:37)
[2017-11-16 12:30] LABS: CLOSTRIDIUM DIFFICILE ANTIGEN POSITIVE; CLOSTRIDIUM DIFFICILE TOXIN NEGATIVE (Negative)
[2017-11-16 13:39] VITALS: BP 125/51
[2017-11-16 19:48] VITALS: BP 141/67
[2017-11-16] MEDS ORDERED: LIOTHYRONINE 25 MCG TABLET PO SCH (21:30)
[2017-11-17 00:07] VITALS: BP 157/71
[2017-11-17] MEDS: ASPIRIN 325 MG TABLET EC PO SCH (06:00)
[2017-11-17] MEDS ORDERED: LIOTHYRONINE 25 MCG TABLET PO SCH ×2 (06:00→09:00)
[2017-11-17] MEDS ORDERED: THYROID 30 MG TABLET PO SCH ×2 (06:00→17:00)
[2017-11-17 08:35] VITALS: BP 161/73
[2017-11-17] MEDS: LISINOPRIL 10 MG TABLET PO SCH (09:08)
[2017-11-17] MEDS: METOPROLOL TARTRATE 50 MG TABLET PO SCH (09:08)
[2017-11-17 12:30] VITALS: BP 170/80
[2017-11-29] MEDS ORDERED: PENT400T2 PO (14:06)
== END 2017-11-17 12:50 | disposition home health service (06) | DRG 303 ==
LOC: ED 17:16 → EDIP 17:17 → ED 17:31 → 5SO 19:41
PROVIDERS: ADMIT Hospitalist; ATTEND Hospitalist
DX: I25.10 Atherosclerotic heart disease of native coronary artery without angina pectoris (principal); G93.89 Other specified disorders of brain; I42.9 Cardiomyopathy, unspecified; D75.82 Heparin induced thrombocytopenia (HIT); E86.0 Dehydration; F17.203 Nicotine dependence unspecified, with withdrawal; I47.1 Supraventricular tachycardia; I25.2 Old myocardial infarction; I16.0 Hypertensive urgency; G40.909 Epilepsy, unspecified, not intractable, without status epilepticus; E03.9 Hypothyroidism, unspecified; E05.90 Thyrotoxicosis, unspecified without thyrotoxic crisis or storm; E78.00 Pure hypercholesterolemia, unspecified; E78.5 Hyperlipidemia, unspecified; N28.9 Disorder of kidney and ureter, unspecified; I10 Essential (primary) hypertension; Z96.641 Presence of right artificial hip joint; Z95.0 Presence of cardiac pacemaker; Z88.6 Allergy status to analgesic agent; Z88.0 Allergy status to penicillin; Z91.018 Allergy to other foods; Z79.82 Long term (current) use of aspirin; Z86.73 Personal history of transient ischemic attack (TIA), and cerebral infarction without residual deficits
CPT/HCPCS: 36415; 70450; 71046; 80048; 80053; 83735; 84439; 84443; 84481; 84484; 85025; 87324; 87493; 93005; 93306; 96360; 96361; J7030

== ENCOUNTER 2017-11-29 13:54 | Inpatient (IN) | payer MEDICARE ==
[~2017-11-29] VITALS: Ht 157.5 cm; Wt 55.0 kg
[~2017-11-29 13:54] MED LIST changes: -MAGN64TA9 PO; +MAGNESIUM DR64 MG PO
[2017-11-29] MEDS ORDERED: THYR60TA PO (14:06)
[2017-11-29] MEDS ORDERED: PENT400T9 PO (14:06)
[2017-11-29] MEDS ORDERED: METOCLOPRAMIDE 5 MG/ML, 2ML IVPush ONE (14:30)
[2017-11-29] MEDS ORDERED: SODIUM CHLORIDE FLUSH 10ML SYR IVF ONE (14:30)
[2017-11-29] MEDS ORDERED: METOCLOPRAMIDE 5 MG/ML, 2ML ONE (14:38)
[2017-11-29 14:55] LABS: BASOPHILS # (AUTO) 0.05 x10^3/uL (0-0.1); BASOPHILS % (AUTO) 0 % (0-1); EOSINOPHILS % (AUTO) 1 % (1-7); LYMPHOCYTES # (AUTO) 2.86 x10^3/uL (1-3.4); LYMPHOCYTES % (AUTO) 18 % (22-44); MD NO; MEAN CORPUSCULAR HEMOGLOBIN 29.4 pg (27.0-34.8); MEAN CORPUSCULAR HGB CONC 33.2 g/dL (32.4-35.8); MEAN CORPUSCULAR VOLUME 88.5 fL (80-100); MONOCYTES # (AUTO) 0.49 x10^3/uL (0.2-0.8); MONOCYTES % (AUTO) 3 % (2-9); NEUTROPHILS # (AUTO) 12.66 x10^3/uL (1.8-6.8); NEUTROPHILS % (AUTO) 78 % (42-75); PLATELET COUNT 284 x10^3/uL (130-400); RED BLOOD COUNT 5.11 x10^6/uL (3.82-5.3); RED CELL DISTRIBUTION WIDTH 16.3 % (9.6-15.2)
[2017-11-29 15:02] LABS: ALBUMIN 3.7 g/dL (3.4-5.0); ANION GAP 11 mmol/L (5-15); CALCIUM 9.9 mg/dL (8.5-10.1); CHLORIDE 106 mmol/L (98-107); CREATININE 1.25 mg/dL (0.55-1.02)
[2017-11-29 15:06] LABS: TROPONIN I < 0.015 ng/mL (0.000-0.045)
[2017-11-29] MEDS ORDERED: DIPHENHYDRAMINE 50 MG/ML, 1ML ONE (15:14)
[2017-11-29] MEDS ORDERED: LORazepam 2 MG/ML, 1ML ONE ×2 (15:29→16:45)
[2017-11-29] MEDS ORDERED: LORazepam 2 MG/ML, 1ML IVPush ONE ×2 (15:30→17:00)
[2017-11-29] MEDS ORDERED: DIPHENHYDRAMINE 50 MG/ML, 1ML IVPush ONE (15:30)
[2017-11-29] MEDS ORDERED: SODIUM CHLORIDE 0.9% 1,000ML IVBOLUS ONE (16:00)
[2017-11-29] MEDS ORDERED: ZIPRASIDONE 20 MG INJ IM ONE ×3 (16:17→17:44)
[2017-11-29] MEDS ORDERED: METOPROLOL 1 MG/ML, 5ML IVPush PRN (17:30)
[2017-11-29] MEDS ORDERED: HEPARIN 5,000 UNITS/ML, 1ML SQ SCH (17:30)
[2017-11-29 17:43] LABS: FREE T4 (FREE THYROXINE) 0.59 ng/dL (0.76-1.46); THYROID STIMULATING HORMONE 2.86 mIU/L (0.358-3.740)
[2017-11-29 18:01] LABS: HCT (SEDRATE) 42.3 % (34.6-47.8)
[2017-11-29] MEDS: ZIPRASIDONE 20 MG INJ IM PRN ×2 (18:02→22:42)
[2017-11-29 18:25] LABS: TROPONIN I < 0.015 ng/mL (0.000-0.045)
[2017-11-29 20:41] LABS: MICROSCOPIC AUTO
[2017-11-29 20:43] LABS: CULTURE INDICATED? NO
[2017-11-29 21:01] VITALS: BP 208/92
[2017-11-29 21:02] VITALS: BP 172/93
[2017-11-29] MEDS: SODIUM CHLORIDE 0.9% 1,000 ML IV SCH (21:05)
[2017-11-29] MEDS: METOPROLOL TARTRATE 50 MG TABLET PO SCH (21:09)
[2017-11-29] MEDS ORDERED: hydrALAzine 20 MG/ML, 1ML IV PRN (21:30)
[2017-11-29 23:50] LABS: TROPONIN I < 0.015 ng/mL (0.000-0.045)
[2017-11-30 04:00] VITALS: BP 114/60
[2017-11-30 04:58] LABS: BASOPHILS # (AUTO) 0.06 x10^3/uL (0-0.1); BASOPHILS % (AUTO) 1 % (0-1); EOSINOPHILS # (AUTO) 0.28 x10^3/uL (0-0.4); EOSINOPHILS % (AUTO) 2 % (1-7); LYMPHOCYTES # (AUTO) 2.47 x10^3/uL (1-3.4); LYMPHOCYTES % (AUTO) 20 % (22-44); MD NO; MEAN CORPUSCULAR HEMOGLOBIN 29.9 pg (27.0-34.8); MEAN CORPUSCULAR HGB CONC 33.6 g/dL (32.4-35.8); MEAN CORPUSCULAR VOLUME 88.9 fL (80-100); MEAN PLATELET VOLUME 7.9 fL (7.4-10.4); MONOCYTES % (AUTO) 9 % (2-9); NEUTROPHILS # (AUTO) 8.75 x10^3/uL (1.8-6.8); NEUTROPHILS % (AUTO) 69 % (42-75); PLATELET COUNT 262 x10^3/uL (130-400); RED BLOOD COUNT 4.32 x10^6/uL (3.82-5.3); RED CELL DISTRIBUTION WIDTH 15.5 % (9.6-15.2)
[2017-11-30] MEDS ORDERED: ASPIRIN 81 MG TABLET EC PO SCH (06:00)
[2017-11-30] MEDS ORDERED: TEMPLATE NON-FORMULARY MED. (Thyroid** (Armour Thyroid**) 60 MG) PO SCH (06:00)
[2017-11-30 06:29] LABS: ANION GAP 9 mmol/L (5-15); CALCIUM 8.5 mg/dL (8.5-10.1); CHLORIDE 113 mmol/L (98-107)
[2017-11-30 06:55] LABS: ALANINE AMINOTRANSFERASE 14 U/L (12-78); ALKALINE PHOSPHATASE 148 U/L (45-117); BILIRUBIN,TOTAL 0.7 mg/dL (0.2-1.0); TOTAL PROTEIN 7.5 g/dL (6.4-8.2)
[2017-11-30 07:00] LABS: FOLATE LEVEL > 20.0 ng/mL (3.1-17.5)
[2017-11-30] MEDS: METOPROLOL TARTRATE 50 MG TABLET PO SCH (08:07)
[2017-11-30 08:09] VITALS: BP 150/57
[2017-11-30] MEDS ORDERED: PENTOXIFYLLINE 400 MG TABLET.ER PO SCH (09:00)
[2017-11-30] MEDS ORDERED: FONDAPARINUX 2.5 MG/0.5 ML SQ SCH (09:00)
[2017-11-30] MEDS ORDERED: LISINOPRIL 10 MG TABLET PO SCH ×2 (09:00)
[2017-11-30] MEDS: SODIUM CHLORIDE 0.9% 1,000 ML IV SCH (10:20)
== END 2017-11-30 11:50 | disposition home or self-care (01) | DRG 71 ==
LOC: ED 17:20 → EDIP 17:21 → ED 18:01 → 4EST 20:06
PROVIDERS: ADMIT Internal Medicine; ATTEND Hospitalist
DX: G93.40 Encephalopathy, unspecified (principal); I42.9 Cardiomyopathy, unspecified; N17.9 Acute kidney failure, unspecified; I11.0 Hypertensive heart disease with heart failure; D75.82 Heparin induced thrombocytopenia (HIT); I50.9 Heart failure, unspecified; E86.0 Dehydration; F03.90 Unspecified dementia, unspecified severity, without behavioral disturbance, psychotic disturbance, mood disturbance, and anxiety; D72.829 Elevated white blood cell count, unspecified; E03.9 Hypothyroidism, unspecified; E04.1 Nontoxic single thyroid nodule; F17.200 Nicotine dependence, unspecified, uncomplicated; G40.909 Epilepsy, unspecified, not intractable, without status epilepticus; H55.00 Unspecified nystagmus; Z96.641 Presence of right artificial hip joint; Z86.73 Personal history of transient ischemic attack (TIA), and cerebral infarction without residual deficits; N28.9 Disorder of kidney and ureter, unspecified
CPT/HCPCS: 36415; 70450; 71045; 80048; 80053; 81001; 82040; 82140; 82607; 82746; 83735; 84100; 84439; 84443; 84481; 84484; 85025; 85651; 86141; 93005; 96361; 96372; 96374; 96375; 96376; J3486; J0360; J1200; J1652; J2060; J2765; J7030

== ENCOUNTER 2018-01-22 19:56 | Inpatient (IN) | payer MEDICARE ==
[~2018-01-22] VITALS: Ht 165.1 cm; Wt 57.9 kg
[~2018-01-22 19:56] MED LIST changes: +PENT400T9 PO
[2018-01-22] MEDS ORDERED: LORazepam 2 MG/ML, 1ML ONE (20:28)
[2018-01-22 20:32] LABS: BASOPHILS # (AUTO) 0.06 x10^3/uL (0-0.1); BASOPHILS % (AUTO) 1 % (0-1); EOSINOPHILS # (AUTO) 0.35 x10^3/uL (0-0.4); EOSINOPHILS % (AUTO) 4 % (1-7); LYMPHOCYTES # (AUTO) 2.97 x10^3/uL (1-3.4); LYMPHOCYTES % (AUTO) 30 % (22-44); MD NO; MEAN CORPUSCULAR HGB CONC 33.8 g/dL (32.4-35.8); MEAN CORPUSCULAR VOLUME 91.8 fL (80-100); MEAN PLATELET VOLUME 8.2 fL (7.4-10.4); MONOCYTES # (AUTO) 0.67 x10^3/uL (0.2-0.8); MONOCYTES % (AUTO) 7 % (2-9); NEUTROPHILS # (AUTO) 5.71 x10^3/uL (1.8-6.8); NEUTROPHILS % (AUTO) 59 % (42-75); PLATELET COUNT 312 x10^3/uL (130-400); RED BLOOD COUNT 4.48 x10^6/uL (3.82-5.3); RED CELL DISTRIBUTION WIDTH 17.1 % (9.6-15.2)
[2018-01-22 20:38] LABS: INTERNATIONAL NORMALIZED RATIO 1.02 (0.93-1.1); PROTHROMBIN TIME 10.5 Seconds (9.6-11.5)
[2018-01-22 20:41] LABS: ALANINE AMINOTRANSFERASE 16 U/L (12-78); ALBUMIN 3.6 g/dL (3.4-5.0); ANION GAP 7 mmol/L (5-15); CALCIUM 10.3 mg/dL (8.5-10.1); CHLORIDE 112 mmol/L (98-107); CREATININE 1.52 mg/dL (0.55-1.02)
[2018-01-22 20:43] LABS: ALKALINE PHOSPHATASE 130 U/L (45-117); BILIRUBIN,TOTAL 0.3 mg/dL (0.2-1.0); TOTAL PROTEIN 8.7 g/dL (6.4-8.2)
[2018-01-22] MEDS ORDERED: VALPROATE SODIUM 1,000 MG in SODIUM CHLORIDE 0.9% 100 ML IV STA (20:57)
[2018-01-22] MEDS ORDERED: SODIUM CHLORIDE 0.9% IV ONE (21:00)
[2018-01-22] MEDS ORDERED: PHENYTOIN SODIUM IV ONE (21:00)
[2018-01-22] MEDS ORDERED: FILTER 0.22 MICRON IV ONE (21:00)
[2018-01-22] MEDS ORDERED: LORazepam 2 MG/ML, 1ML IVPush ONE (21:30)
[2018-01-22] MEDS ORDERED: HALOPERIDOL 5 MG/ML ONE (21:50)
[2018-01-22] MEDS ORDERED: HALOPERIDOL 5 MG/ML IV ONE (22:00)
[2018-01-22] MEDS ORDERED: LORazepam 2 MG/ML, 1ML IVPush PRN (22:30)
[2018-01-22] MEDS ORDERED: ONDANSETRON ODT 4 MG PO PRN (22:30)
[2018-01-22] MEDS ORDERED: hydrALAzine 20 MG/ML, 1ML IVPush PRN (22:30)
[2018-01-22] MEDS ORDERED: ZIPRASIDONE 20 MG INJ IM ONE ×2 (22:30→22:31)
[2018-01-22] MEDS ORDERED: ACETAMINOPHEN 325 MG TABLET PO PRN (22:30)
[2018-01-23] MEDS: SODIUM CHLORIDE 0.9% 1,000 ML IV SCH ×2 (00:21→06:50)
[2018-01-23] MEDS ORDERED: ALBUTEROL/IPRATROPIUM 2.5MG/0.5MG, 3 ML NPPB PRN (00:30)
[2018-01-23 01:13] VITALS: BP 153/67
[2018-01-23 01:30] VITALS: BP 153/67
[2018-01-23 04:00] VITALS: BP 163/77
[2018-01-23 05:37] LABS: MICROSCOPIC NOT IND
[2018-01-23 05:39] LABS: CULTURE INDICATED? NO
[2018-01-23] MEDS: THYROID 30 MG TABLET PO SCH (05:42)
[2018-01-23 05:47] LABS: AMPHETAMINE SCREEN, URINE Negative (Negative); BARBITURATE SCREEN, URINE Negative (Negative); BENZODIAZEPINE SCREEN, URINE Negative (Negative); CANNABINOID SCREEN, URINE Negative (Negative); COCAINE SCREEN, URINE Negative (Negative); METHADONE SCREEN, URINE Negative (Negative); OPIATE SCREEN, URINE Negative (Negative)
[2018-01-23 05:57] LABS: BASOPHILS # (AUTO) 0.08 x10^3/uL (0-0.1); BASOPHILS % (AUTO) 1 % (0-1); EOSINOPHILS % (AUTO) 1 % (1-7); LYMPHOCYTES # (AUTO) 2.53 x10^3/uL (1-3.4); LYMPHOCYTES % (AUTO) 20 % (22-44); MD NO; MEAN CORPUSCULAR HGB CONC 33.6 g/dL (32.4-35.8); MEAN CORPUSCULAR VOLUME 92.4 fL (80-100); MEAN PLATELET VOLUME 7.8 fL (7.4-10.4); MONOCYTES % (AUTO) 5 % (2-9); NEUTROPHILS # (AUTO) 9.59 x10^3/uL (1.8-6.8); NEUTROPHILS % (AUTO) 74 % (42-75); PLATELET COUNT 281 x10^3/uL (130-400); RED BLOOD COUNT 4.38 x10^6/uL (3.82-5.3); RED CELL DISTRIBUTION WIDTH 16.7 % (9.6-15.2)
[2018-01-23 06:04] LABS: ALBUMIN 3.4 g/dL (3.4-5.0); ANION GAP 10 mmol/L (5-15); CHLORIDE 113 mmol/L (98-107)
[2018-01-23 06:15] LABS: ALANINE AMINOTRANSFERASE 16 U/L (12-78); ALKALINE PHOSPHATASE 130 U/L (45-117); BILIRUBIN,TOTAL 0.6 mg/dL (0.2-1.0); CREATININE 1.37 mg/dL (0.55-1.02); TOTAL PROTEIN 8.3 g/dL (6.4-8.2)
[2018-01-23] MEDS: PENTOXIFYLLINE 400 MG TABLET.ER PO SCH (10:47)
[2018-01-23] MEDS: LISINOPRIL 10 MG TABLET PO SCH (10:47)
[2018-01-23] MEDS: DIVALPROEX 500 MG TAB.ER.24H PO SCH (10:48)
[2018-01-23] MEDS: METOPROLOL TARTRATE 50 MG TABLET PO SCH ×2 (10:48→23:29)
[2018-01-23 15:55] VITALS: BP 160/72
[2018-01-23 19:31] VITALS: BP 150/68
[2018-01-23] MEDS ORDERED: SODIUM CHLORIDE 0.9% 1,000 ML IV SCH (22:23)
[2018-01-24 02:30] VITALS: BP 161/75
[2018-01-24] MEDS: THYROID 30 MG TABLET PO SCH (05:21)
[2018-01-24 05:49] LABS: ALANINE AMINOTRANSFERASE 12 U/L (12-78); ALBUMIN 3.1 g/dL (3.4-5.0); ANION GAP 6 mmol/L (5-15); CALCIUM 9.3 mg/dL (8.5-10.1); CHLORIDE 113 mmol/L (98-107); CREATININE 1.27 mg/dL (0.55-1.02)
[2018-01-24 05:50] LABS: BASOPHILS # (AUTO) 0.06 x10^3/uL (0-0.1); BASOPHILS % (AUTO) 1 % (0-1); EOSINOPHILS # (AUTO) 0.43 x10^3/uL (0-0.4); EOSINOPHILS % (AUTO) 4 % (1-7); LYMPHOCYTES # (AUTO) 2.52 x10^3/uL (1-3.4); LYMPHOCYTES % (AUTO) 25 % (22-44); MD NO; MEAN CORPUSCULAR HEMOGLOBIN 31.1 pg (27.0-34.8); MEAN CORPUSCULAR HGB CONC 33.7 g/dL (32.4-35.8); MEAN CORPUSCULAR VOLUME 92.4 fL (80-100); MEAN PLATELET VOLUME 8.2 fL (7.4-10.4); MONOCYTES # (AUTO) 0.79 x10^3/uL (0.2-0.8); MONOCYTES % (AUTO) 8 % (2-9); NEUTROPHILS # (AUTO) 6.35 x10^3/uL (1.8-6.8); NEUTROPHILS % (AUTO) 63 % (42-75); PLATELET COUNT 272 x10^3/uL (130-400); RED BLOOD COUNT 4.16 x10^6/uL (3.82-5.3); RED CELL DISTRIBUTION WIDTH 16.6 % (9.6-15.2)
[2018-01-24 05:51] LABS: ALKALINE PHOSPHATASE 109 U/L (45-117); BILIRUBIN,TOTAL 0.5 mg/dL (0.2-1.0); TOTAL PROTEIN 7.7 g/dL (6.4-8.2)
[2018-01-24 07:23] VITALS: BP 155/65
[2018-01-24] MEDS ORDERED: FONDAPARINUX 2.5 MG/0.5 ML SQ SCH (09:00)
[2018-01-24] MEDS: LISINOPRIL 10 MG TABLET PO SCH (09:30)
[2018-01-24] MEDS: DIVALPROEX 500 MG TAB.ER.24H PO SCH (09:30)
[2018-01-24] MEDS: PENTOXIFYLLINE 400 MG TABLET.ER PO SCH (09:30)
[2018-01-24] MEDS: METOPROLOL TARTRATE 50 MG TABLET PO SCH (09:30)
[2018-01-24] MEDS ORDERED: DIVA500T4 PO (13:29)
[2018-01-24] MEDS ORDERED: ASPI-496 PO (13:32)
[2018-01-24] MEDS ORDERED: ATOR40TA78 PO (13:33)
[2018-01-24 13:44] VITALS: BP 182/70
[2018-01-24 13:51] VITALS: BP 163/67
[2018-01-24] MEDS ORDERED: SODIUM CHLORIDE 0.9% 1,000 ML IV SCH (22:23)
== END 2018-01-24 16:20 | disposition home or self-care (01) | DRG 100 ==
LOC: ED 21:30 → EDIP 21:55 → CCU 23:07 → 4NOR 01-23 14:28 → DCLOUNGE 01-24 16:10
PROVIDERS: ADMIT Hospitalist; ATTEND Hospitalist
DX: G40.401 Other generalized epilepsy and epileptic syndromes, not intractable, with status epilepticus (principal); G93.40 Encephalopathy, unspecified; R47.01 Aphasia; N28.9 Disorder of kidney and ureter, unspecified; F17.210 Nicotine dependence, cigarettes, uncomplicated; E78.00 Pure hypercholesterolemia, unspecified; G83.84 Todd's paralysis (postepileptic); E03.9 Hypothyroidism, unspecified; I11.0 Hypertensive heart disease with heart failure; E83.52 Hypercalcemia; I25.10 Atherosclerotic heart disease of native coronary artery without angina pectoris; I50.9 Heart failure, unspecified; I25.2 Old myocardial infarction; I73.9 Peripheral vascular disease, unspecified; J44.9 Chronic obstructive pulmonary disease, unspecified; Z87.01 Personal history of pneumonia (recurrent); Z79.899 Other long term (current) drug therapy; Z86.73 Personal history of transient ischemic attack (TIA), and cerebral infarction without residual deficits; Z95.0 Presence of cardiac pacemaker; Z90.710 Acquired absence of both cervix and uterus; Z95.5 Presence of coronary angioplasty implant and graft; Z96.641 Presence of right artificial hip joint; Z99.3 Dependence on wheelchair
CPT/HCPCS: 36415; 70450; 80047; 80053; 80307; 81003; 82962; 83735; 84100; 84439; 84443; 85025; 85520; 85610; 85730; 87081; 93005; 95819; 96365; 96372; 96375; J3486; J1630; J1652; J2060; J7030

== ENCOUNTER 2018-02-15 19:39 | Inpatient (IN) | payer MEDICARE ==
[~2018-02-15] VITALS: Ht 160 cm; Wt 50.2 kg
[~2018-02-15 19:39] MED LIST changes: +ASPI-496 PO; +DIVA500T4 PO
[2018-02-16] MEDS ORDERED: LEVO25TA2 PO (09:32)
[2018-02-16] MEDS ORDERED: ASPI-621 PO (09:32)
[2018-02-16] MEDS ORDERED: ONDA4TAB13 PO (09:32)
[2018-02-16] MEDS ORDERED: AMLO5TAB2 PO (09:32)
[2018-02-16] MEDS ORDERED: PENT400T9 PO (09:32)
[2018-02-16] MEDS ORDERED: ATOR40TA78 PO (09:32)
[2018-02-16] MEDS ORDERED: NICO-486 TD (09:32)
[2018-02-16] MEDS ORDERED: ZONI50CA2 PO (09:32)
[2018-02-16] MEDS ORDERED: LISI-167 PO (09:32)
[2018-02-16] MEDS ORDERED: METO50TA82 PO (09:32)
[2018-02-16] MEDS ORDERED: POLYETHYLENE GLYCOL 17 GM PACKET PO PRN (13:00)
[2018-02-16] MEDS ORDERED: DOCUSATE 100 MG CAPSULE PO PRN (13:00)
[2018-02-16] MEDS ORDERED: ACETAMINOPHEN 325 MG TABLET PO PRN (13:00)
[2018-02-16] MEDS ORDERED: BISACODYL 10 MG SUPP PR PRN (13:00)
[2018-02-16] MEDS ORDERED: PLEASE ENTER HEIGHT AND WEIGHT MC SCH (13:30)
[2018-02-16 14:07] VITALS: BP 117/72
[2018-02-16] MEDS ORDERED: FONDAPARINUX 2.5 MG/0.5 ML SQ SCH ×2 (16:00→16:19)
[2018-02-16] MEDS: NICOTINE 14MG/24 HR PATCH.TD24 TD SCH (16:37)
[2018-02-16] MEDS ORDERED: LIDODERM 5% PATCH TD ONE (18:00)
[2018-02-16 18:21] VITALS: BP 122/66
[2018-02-16] MEDS: METOPROLOL TARTRATE 50 MG TABLET PO SCH (18:32)
[2018-02-16 19:51] VITALS: BP 121/69
[2018-02-16] MEDS ORDERED: LISINOPRIL 10 MG TABLET PO SCH (21:00)
[2018-02-16] MEDS ORDERED: SIMVASTATIN 20 MG TABLET PO SCH (21:00)
[2018-02-16] MEDS ORDERED: ATORVASTATIN 40 MG TABLET PO SCH (21:00)
[2018-02-16] MEDS ORDERED: ZONISAMIDE 50 MG CAPSULE PO SCH (21:00)
[2018-02-16] MEDS: AMLODIPINE 5 MG TABLET PO SCH (21:11)
[2018-02-17] MEDS ORDERED: THYROID 30 MG TABLET PO SCH (06:00)
[2018-02-17] MEDS ORDERED: LEVOTHYROXINE 25 MCG TABLET PO SCH (06:00)
[2018-02-17] MEDS: METOPROLOL TARTRATE 50 MG TABLET PO SCH (06:00)
[2018-02-17] MEDS ORDERED: ASPIRIN 81 MG TABLET EC PO SCH (06:00)
[2018-02-17 08:15] VITALS: BP 140/74
[2018-02-17] MEDS: AMLODIPINE 5 MG TABLET PO SCH (09:00)
[2018-02-17] MEDS ORDERED: LISINOPRIL 10 MG TABLET PO SCH (09:00)
[2018-02-17] MEDS ORDERED: PENTOXIFYLLINE 400 MG TABLET.ER PO SCH (09:00)
[2018-02-17] MEDS: SODIUM CHLORIDE 0.9% 1,000 ML IV SCH ×2 (15:49→20:47)
[2018-02-17] MEDS ORDERED: LORazepam 2 MG/ML, 1ML ONE (15:58)
[2018-02-17] MEDS: NICOTINE 14MG/24 HR PATCH.TD24 TD SCH (16:00)
[2018-02-17] MEDS ORDERED: LORazepam 2 MG/ML, 1ML IVPush ONE (16:30)
[2018-02-17] MEDS ORDERED: VALPROATE SODIUM 100 MG/ML, 5ML IVPush STA (16:44)
[2018-02-17 16:50] VITALS: BP 95/60
[2018-02-17] MEDS ORDERED: VALPROATE SODIUM 1,000 MG in SODIUM CHLORIDE 0.9% 100 ML IV ONE (17:30)
[2018-02-17 20:21] VITALS: BP 117/74
[2018-02-17] MEDS ORDERED: VALPROATE SODIUM 100 MG/ML, 5ML IVPush SCH (21:00)
[2018-02-17] MEDS: VALPROATE SODIUM 500 MG in SODIUM CHLORIDE 0.9% 100 ML IV SCH (21:13)
[2018-02-18] MEDS: SODIUM CHLORIDE 0.9% 1,000 ML IV SCH (02:14)
[2018-02-18] MEDS ORDERED: LORazepam 2 MG/ML, 1ML ONE ×2 (04:41→10:13)
[2018-02-18] MEDS ORDERED: LORazepam 2 MG/ML, 1ML IVPush ONE ×2 (05:00→10:30)
[2018-02-18] MEDS ORDERED: LEVOTHYROXINE 100 MCG INJ IVPush SCH (06:00)
[2018-02-18] MEDS ORDERED: hydrALAzine 20 MG/ML, 1ML IV SCH (08:00)
[2018-02-18] MEDS: VALPROATE SODIUM 500 MG in SODIUM CHLORIDE 0.9% 100 ML IV SCH (08:57)
[2018-02-18 09:42] VITALS: BP 119/65
[2018-02-18] MEDS ORDERED: ZIPRASIDONE 20 MG INJ IM ONE (10:46)
== END 2018-02-18 10:45 | disposition swing bed (61) | DRG 100 ==
LOC: 3E 02-16 12:47 → CCU 02-18 10:19 → 3E 02-18 10:21
PROVIDERS: ADMIT Psychiatry & Neurology Psychosomatic Medicine; ATTEND Psychiatry & Neurology Psychosomatic Medicine
DX: G40.201 Localization-related (focal) (partial) symptomatic epilepsy and epileptic syndromes with complex partial seizures, not intractable, with status epilepticus (principal); G93.41 Metabolic encephalopathy; N17.9 Acute kidney failure, unspecified; F09 Unspecified mental disorder due to known physiological condition; E83.52 Hypercalcemia; N18.9 Chronic kidney disease, unspecified; J44.9 Chronic obstructive pulmonary disease, unspecified; I73.9 Peripheral vascular disease, unspecified; I12.9 Hypertensive chronic kidney disease with stage 1 through stage 4 chronic kidney disease, or unspecified chronic kidney disease; F17.210 Nicotine dependence, cigarettes, uncomplicated; F03.90 Unspecified dementia, unspecified severity, without behavioral disturbance, psychotic disturbance, mood disturbance, and anxiety; I25.10 Atherosclerotic heart disease of native coronary artery without angina pectoris; Z79.899 Other long term (current) drug therapy; Z80.0 Family history of malignant neoplasm of digestive organs; Z82.3 Family history of stroke; Z86.73 Personal history of transient ischemic attack (TIA), and cerebral infarction without residual deficits; Z91.14 Patient's other noncompliance with medication regimen; Z88.6 Allergy status to analgesic agent; Z88.0 Allergy status to penicillin; Z88.8 Allergy status to other drugs, medicaments and biological substances; Z71.6 Tobacco abuse counseling; Z91.012 Allergy to eggs; Z79.82 Long term (current) use of aspirin
CPT/HCPCS: 99285; J1652; J2060; J7030

== ENCOUNTER 2018-02-18 10:49 | Inpatient (IN) | payer MEDICARE, OTHER ==
[~2018-02-18] VITALS: Ht 167.6 cm; Wt 58.0 kg
[~2018-02-18 10:49] MED LIST changes: +AMLO5TAB2 PO; +ASPI-621 PO; +LEVO25TA2 PO; +NICO-486 TD; +ONDA4TAB13 PO; +ZONI50CA2 PO
[2018-02-18] MEDS ORDERED: SODIUM CHLORIDE 0.9% 1,000 ML IV SCH (10:58)
[2018-02-18] MEDS ORDERED: POLYETHYLENE GLYCOL 17 GM PACKET PO PRN (11:00)
[2018-02-18] MEDS ORDERED: ONDANSETRON ODT 4 MG PO PRN (11:00)
[2018-02-18] MEDS ORDERED: ACETAMINOPHEN 325 MG TABLET PO PRN (11:00)
[2018-02-18] MEDS ORDERED: ONDANSETRON 2MG/ML, 2ML IVPush PRN (11:00)
[2018-02-18] MEDS ORDERED: morphine SULFATE 10 MG/ML, 1ML IVPush PRN (11:00)
[2018-02-18] MEDS ORDERED: LABETALOL 5MG/ML, 20ML IVPush PRN (11:00)
[2018-02-18] MEDS ORDERED: PLEASE ENTER HEIGHT AND WEIGHT MC SCH ×2 (11:30→13:00)
[2018-02-18] MEDS ORDERED: CLINDAMYCIN PMX 600MG/50ML 50 ML IV SCH (11:30)
[2018-02-18 11:56] LABS: BASOPHILS # (AUTO) 0.03 x10^3/uL (0-0.1); BASOPHILS % (AUTO) 0 % (0-1); EOSINOPHILS # (AUTO) 0.19 x10^3/uL (0-0.4); EOSINOPHILS % (AUTO) 2 % (1-7); FIO2 50 %; LYMPHOCYTES # (AUTO) 1.69 x10^3/uL (1-3.4); LYMPHOCYTES % (AUTO) 21 % (22-44); MD NO; MEAN CORPUSCULAR HEMOGLOBIN 32.1 pg (27.0-34.8); MEAN CORPUSCULAR HGB CONC 34.5 g/dL (32.4-35.8); MONOCYTES # (AUTO) 0.56 x10^3/uL (0.2-0.8); MONOCYTES % (AUTO) 7 % (2-9); NEUTROPHILS # (AUTO) 5.44 x10^3/uL (1.8-6.8); NEUTROPHILS % (AUTO) 69 % (42-75); PLATELET COUNT 249 x10^3/uL (130-400); RED BLOOD COUNT 3.58 x10^6/uL (3.82-5.3); RED CELL DISTRIBUTION WIDTH 16.3 % (9.6-15.2)
[2018-02-18 12:14] LABS: ALANINE AMINOTRANSFERASE 16 U/L (12-78); ANION GAP 11 mmol/L (5-15); CALCIUM 8.7 mg/dL (8.5-10.1); CHLORIDE 121 mmol/L (98-107); CREATININE 1.31 mg/dL (0.55-1.02)
[2018-02-18 12:23] LABS: ALKALINE PHOSPHATASE 73 U/L (45-117); BILIRUBIN,TOTAL 0.5 mg/dL (0.2-1.0); FREE T4 (FREE THYROXINE) 0.77 ng/dL (0.76-1.46); TOTAL PROTEIN 6.9 g/dL (6.4-8.2)
[2018-02-18 12:27] LABS: FREE T4 (FREE THYROXINE) 0.78 ng/dL (0.76-1.46); THYROID STIMULATING HORMONE 4.89 mIU/L (0.358-3.740)
[2018-02-18 13:00] LABS: INTERNATIONAL NORMALIZED RATIO 1.09 (0.93-1.1); PROTHROMBIN TIME 11.3 Seconds (9.6-11.5)
[2018-02-18] MEDS ORDERED: BISACODYL 10 MG SUPP PR PRN (13:00)
[2018-02-18] MEDS ORDERED: LACTULOSE 20 GM/30 ML UDC NG PRN (13:00)
[2018-02-18] MEDS ORDERED: ALBUTEROL/IPRATROPIUM 2.5MG/0.5MG, 3 ML INLINE SCH (13:00)
[2018-02-18] MEDS ORDERED: FENTANYL PF 100 MCG/2ML IVPush PRN (13:00)
[2018-02-18] MEDS ORDERED: LIDOCAINE-MPF 1%, 2ML ENDO PRN (13:00)
[2018-02-18] MEDS ORDERED: GLUCAGON 1 MG IM PRN (13:00)
[2018-02-18] MEDS ORDERED: SENNA/DOCUSATE TABLET NG PRN (13:00)
[2018-02-18] MEDS: INSULIN LISPRO 100 UNITS/ML, PEN SQ-INSULIN SCH ×3 (13:00→21:00)
[2018-02-18] MEDS ORDERED: DEXTROSE 4 GM TAB.CHEW PO PRN (13:00)
[2018-02-18] MEDS ORDERED: PHARMACY MAY ADJ FOR RENAL FX MC SCH (13:00)
[2018-02-18] MEDS ORDERED: DEXTROSE 50%, 50ML SYRINGE IVPush PRN (13:00)
[2018-02-18] MEDS ORDERED: SENNOSIDES 8.8 MG/5 ML ORAL SOL NG PRN (13:00)
[2018-02-18] MEDS: ERGOCALCIFEROL 50,000 UNIT CAPSULE PO SCH (13:30)
[2018-02-18] MEDS ORDERED: ENOXAPARIN 30 MG/0.3 ML ONE (13:37)
[2018-02-18] MEDS: PANTOPRAZOLE 40 MG IV IV SCH (13:41)
[2018-02-18] MEDS: ENOXAPARIN 30 MG/0.3 ML SQ SCH (13:41)
[2018-02-18] MEDS ORDERED: D5%-0.2% NACL 1,000 ML IV SCH (14:30)
[2018-02-18] MEDS: METRONIDAZOLE PMX 500MG/100ML 100 ML IV SCH ×2 (15:42→23:25)
[2018-02-18] MEDS: CEFTRIAXONE 1,000 MG in SODIUM CHLORIDE 0.9% 50 ML IV SCH (15:42)
[2018-02-18] MEDS: VALPROATE SODIUM 500 MG in SODIUM CHLORIDE 0.9% 100 ML IV SCH (15:49)
[2018-02-18] MEDS ORDERED: SODIUM CHLORIDE 0.45%, 1,000ML IVBOLUS ONE (16:00)
[2018-02-18] MEDS ORDERED: FAMOTIDINE 20 MG/2 ML IVPush SCH ×2 (16:02→21:00)
[2018-02-18 16:20] LABS: MICROSCOPIC NOT IND
[2018-02-18 16:22] LABS: CULTURE INDICATED? NO
[2018-02-18] MEDS: D5%-0.2% NACL 1,000 ML IV SCH (17:30)
[2018-02-18] MEDS: PROPOFOL 100 ML IV PRN (17:30)
[2018-02-18] MEDS: METOPROLOL TARTRATE 50 MG TABLET PO SCH (18:00)
[2018-02-18] MEDS: ATORVASTATIN 40 MG TABLET PO SCH (21:41)
[2018-02-18] MEDS: SODIUM CHLORIDE FLUSH 10ML SYR IVF SCH (21:42)
[2018-02-19] MEDS: INSULIN LISPRO 100 UNITS/ML, PEN SQ-INSULIN SCH ×4 (03:00→20:58)
[2018-02-19] MEDS: VALPROATE SODIUM 500 MG in SODIUM CHLORIDE 0.9% 100 ML IV SCH ×2 (03:05→15:58)
[2018-02-19] MEDS: ENOXAPARIN 30 MG/0.3 ML SQ SCH (03:05)
[2018-02-19] MEDS: PROPOFOL 100 ML IV PRN (04:34)
[2018-02-19 04:35] LABS: BASOPHILS # (AUTO) 0.03 x10^3/uL (0-0.1); BASOPHILS % (AUTO) 0 % (0-1); EOSINOPHILS # (AUTO) 0.67 x10^3/uL (0-0.4); EOSINOPHILS % (AUTO) 7 % (1-7); LYMPHOCYTES # (AUTO) 1.74 x10^3/uL (1-3.4); LYMPHOCYTES % (AUTO) 18 % (22-44); MD NO; MEAN CORPUSCULAR HEMOGLOBIN 32.4 pg (27.0-34.8); MEAN CORPUSCULAR HGB CONC 34.4 g/dL (32.4-35.8); MEAN CORPUSCULAR VOLUME 94.3 fL (80-100); MEAN PLATELET VOLUME 7.8 fL (7.4-10.4); MONOCYTES # (AUTO) 1.17 x10^3/uL (0.2-0.8); MONOCYTES % (AUTO) 12 % (2-9); NEUTROPHILS # (AUTO) 6.03 x10^3/uL (1.8-6.8); NEUTROPHILS % (AUTO) 63 % (42-75); PLATELET COUNT 253 x10^3/uL (130-400); RED BLOOD COUNT 3.41 x10^6/uL (3.82-5.3); RED CELL DISTRIBUTION WIDTH 16.3 % (9.6-15.2)
[2018-02-19 04:44] LABS: ALBUMIN 2.7 g/dL (3.4-5.0); ANION GAP 9 mmol/L (5-15); CALCIUM 8.4 mg/dL (8.5-10.1); CHLORIDE 118 mmol/L (98-107)
[2018-02-19 04:48] LABS: ALANINE AMINOTRANSFERASE 14 U/L (12-78); ALKALINE PHOSPHATASE 64 U/L (45-117); BILIRUBIN,TOTAL 0.3 mg/dL (0.2-1.0); CREATININE 1.16 mg/dL (0.55-1.02); TOTAL PROTEIN 6.2 g/dL (6.4-8.2)
[2018-02-19 05:19] VITALS: BP 106/59
[2018-02-19] MEDS ORDERED: LEVOTHYROXINE 25 MCG TABLET PO SCH (06:00)
[2018-02-19] MEDS: METOPROLOL TARTRATE 50 MG TABLET PO SCH ×2 (06:13→18:20)
[2018-02-19] MEDS: LEVOTHYROXINE 25 MCG TABLET PO SCH (06:14)
[2018-02-19] MEDS: METRONIDAZOLE PMX 500MG/100ML 100 ML IV SCH ×3 (07:26→23:32)
[2018-02-19] MEDS ORDERED: FAMOTIDINE 20 MG/2 ML IVPush SCH (09:00)
[2018-02-19] MEDS: FONDAPARINUX 2.5 MG/0.5 ML SQ SCH (09:54)
[2018-02-19] MEDS: PENTOXIFYLLINE 400 MG TABLET.ER PO SCH (09:54)
[2018-02-19] MEDS: SENNA/DOCUSATE TABLET PO SCH (09:54)
[2018-02-19] MEDS: ASPIRIN 81 MG TABLET CHEW PO SCH (09:55)
[2018-02-19] MEDS: LISINOPRIL 10 MG TABLET PO SCH (09:55)
[2018-02-19] MEDS: PANTOPRAZOLE 40 MG IV IV SCH (09:55)
[2018-02-19] MEDS: SODIUM CHLORIDE FLUSH 10ML SYR IVF SCH ×2 (09:55→23:32)
[2018-02-19] MEDS: D5%-0.2% NACL 1,000 ML IV SCH (12:17)
[2018-02-19] MEDS ORDERED: MIDAZOLAM 1 MG/ML, 5ML ONE (16:19)
[2018-02-19] MEDS ORDERED: PROPOFOL 10 MG/ML, 100ML IV ONE (16:19)
[2018-02-19] MEDS ORDERED: ROCURONIUM 10MG/ML,5ML ONE (16:19)
[2018-02-19] MEDS: CEFTRIAXONE 1,000 MG in SODIUM CHLORIDE 0.9% 50 ML IV SCH (17:04)
[2018-02-19] MEDS: ATORVASTATIN 40 MG TABLET PO SCH (21:00)
[2018-02-20] MEDS: INSULIN LISPRO 100 UNITS/ML, PEN SQ-INSULIN SCH ×4 (03:00→21:38)
[2018-02-20] MEDS: D5%-0.2% NACL 1,000 ML IV SCH (03:40)
[2018-02-20] MEDS: VALPROATE SODIUM 500 MG in SODIUM CHLORIDE 0.9% 100 ML IV SCH ×2 (03:40→16:35)
[2018-02-20 04:29] LABS: ANION GAP 7 mmol/L (5-15); CALCIUM 9.2 mg/dL (8.5-10.1); CHLORIDE 114 mmol/L (98-107); CREATININE 1.12 mg/dL (0.55-1.02)
[2018-02-20 04:31] LABS: MEAN CORPUSCULAR HEMOGLOBIN 31.8 pg (27.0-34.8); MEAN CORPUSCULAR HGB CONC 33.9 g/dL (32.4-35.8); MEAN CORPUSCULAR VOLUME 93.6 fL (80-100); MEAN PLATELET VOLUME 7.7 fL (7.4-10.4); PLATELET COUNT 266 x10^3/uL (130-400); RED BLOOD COUNT 4.29 x10^6/uL (3.82-5.3); RED CELL DISTRIBUTION WIDTH 15.8 % (9.6-15.2)
[2018-02-20 05:03] LABS: BASOPHILS # (AUTO) 0.03 x10^3/uL (0-0.1); BASOPHILS % (AUTO) 0 % (0-1); EOSINOPHILS % (AUTO) 5 % (1-7); LYMPHOCYTES # (AUTO) 1.81 x10^3/uL (1-3.4); LYMPHOCYTES % (AUTO) 14 % (22-44); MD SCAN; MONOCYTES # (AUTO) 1.49 x10^3/uL (0.2-0.8); MONOCYTES % (AUTO) 12 % (2-9); NEUTROPHILS # (AUTO) 8.64 x10^3/uL (1.8-6.8); NEUTROPHILS % (AUTO) 69 % (42-75)
[2018-02-20] MEDS: METRONIDAZOLE PMX 500MG/100ML 100 ML IV SCH ×3 (05:44→23:38)
[2018-02-20] MEDS ORDERED: MAGNESIUM SULFATE PMX 2GM/50ML 50 ML IV ONE (08:30)
[2018-02-20] MEDS ORDERED: POTASSIUM CHLORIDE 10% 40 MEQ/30 ML UDC PO ONE (08:30)
[2018-02-20] MEDS: LEVOTHYROXINE 25 MCG TABLET PO SCH (09:12)
[2018-02-20] MEDS: SENNA/DOCUSATE TABLET PO SCH (09:12)
[2018-02-20] MEDS: PENTOXIFYLLINE 400 MG TABLET.ER PO SCH (09:12)
[2018-02-20] MEDS: PANTOPRAZOLE 40 MG IV IV SCH (09:13)
[2018-02-20] MEDS: METOPROLOL TARTRATE 50 MG TABLET PO SCH ×2 (09:13→17:13)
[2018-02-20] MEDS: LISINOPRIL 10 MG TABLET PO SCH ×2 (09:13→17:12)
[2018-02-20] MEDS: ASPIRIN 81 MG TABLET CHEW PO SCH (09:14)
[2018-02-20] MEDS: FONDAPARINUX 2.5 MG/0.5 ML SQ SCH (09:14)
[2018-02-20] MEDS: SODIUM CHLORIDE FLUSH 10ML SYR IVF SCH ×2 (09:17→21:38)
[2018-02-20] MEDS: CEFTRIAXONE 1,000 MG in SODIUM CHLORIDE 0.9% 50 ML IV SCH (17:13)
[2018-02-20] MEDS: ATORVASTATIN 40 MG TABLET PO SCH (21:37)
[2018-02-21] MEDS: VALPROATE SODIUM 500 MG in SODIUM CHLORIDE 0.9% 100 ML IV SCH ×2 (03:10→16:45)
[2018-02-21] MEDS: INSULIN LISPRO 100 UNITS/ML, PEN SQ-INSULIN SCH ×4 (03:10→21:00)
[2018-02-21 04:31] LABS: O2 FLOW ROOM AIR L/min
[2018-02-21 04:35] LABS: BASOPHILS # (AUTO) 0.01 x10^3/uL (0-0.1); BASOPHILS % (AUTO) 0 % (0-1); EOSINOPHILS # (AUTO) 0.32 x10^3/uL (0-0.4); EOSINOPHILS % (AUTO) 3 % (1-7); LYMPHOCYTES # (AUTO) 1.47 x10^3/uL (1-3.4); LYMPHOCYTES % (AUTO) 13 % (22-44); MD NO; MEAN CORPUSCULAR HEMOGLOBIN 31.5 pg (27.0-34.8); MEAN CORPUSCULAR HGB CONC 33.9 g/dL (32.4-35.8); MEAN CORPUSCULAR VOLUME 92.9 fL (80-100); MEAN PLATELET VOLUME 7.6 fL (7.4-10.4); MONOCYTES # (AUTO) 1.19 x10^3/uL (0.2-0.8); MONOCYTES % (AUTO) 10 % (2-9); NEUTROPHILS # (AUTO) 8.61 x10^3/uL (1.8-6.8); NEUTROPHILS % (AUTO) 74 % (42-75); PLATELET COUNT 281 x10^3/uL (130-400); RED CELL DISTRIBUTION WIDTH 15.9 % (9.6-15.2)
[2018-02-21 04:47] LABS: CHLORIDE 113 mmol/L (98-107)
[2018-02-21 04:57] LABS: ALANINE AMINOTRANSFERASE 12 U/L (12-78); ALBUMIN 3.1 g/dL (3.4-5.0); ALKALINE PHOSPHATASE 77 U/L (45-117); ANION GAP 8 mmol/L (5-15); BILIRUBIN,TOTAL 0.4 mg/dL (0.2-1.0); CALCIUM 9.2 mg/dL (8.5-10.1); CREATININE 1.15 mg/dL (0.55-1.02); TOTAL PROTEIN 7.4 g/dL (6.4-8.2); TRIGLYCERIDES 64 mg/dL (50-200)
[2018-02-21] MEDS: METRONIDAZOLE PMX 500MG/100ML 100 ML IV SCH ×3 (05:59→23:37)
[2018-02-21] MEDS: LEVOTHYROXINE 25 MCG TABLET PO SCH (05:59)
[2018-02-21] MEDS: METOPROLOL TARTRATE 50 MG TABLET PO SCH ×2 (06:00→18:06)
[2018-02-21] MEDS: FONDAPARINUX 2.5 MG/0.5 ML SQ SCH (08:38)
[2018-02-21] MEDS: PENTOXIFYLLINE 400 MG TABLET.ER PO SCH (08:38)
[2018-02-21] MEDS: ASPIRIN 81 MG TABLET CHEW PO SCH (08:38)
[2018-02-21] MEDS: PANTOPRAZOLE 40 MG IV IV SCH (08:38)
[2018-02-21] MEDS: SODIUM CHLORIDE FLUSH 10ML SYR IVF SCH ×2 (08:38→21:00)
[2018-02-21] MEDS: SENNA/DOCUSATE TABLET PO SCH (08:38)
[2018-02-21] MEDS: LISINOPRIL 10 MG TABLET PO SCH (08:39)
[2018-02-21] MEDS ORDERED: AMLODIPINE 5 MG TABLET ONE (08:40)
[2018-02-21] MEDS: AMLODIPINE 5 MG TABLET PO SCH ×2 (08:43→21:50)
[2018-02-21] MEDS ORDERED: POTASSIUM PHOSPHATE 44 MEQ in SODIUM CHLORIDE 0.9% 500 ML IV ONE ×2 (09:00→11:00)
[2018-02-21] MEDS: CEFTRIAXONE 1,000 MG in SODIUM CHLORIDE 0.9% 50 ML IV SCH (15:48)
[2018-02-21 18:07] VITALS: BP 159/78
[2018-02-21 18:35] VITALS: BP 132/69
[2018-02-21] MEDS: ATORVASTATIN 40 MG TABLET PO SCH (21:50)
[2018-02-22 02:13] VITALS: BP 129/70
[2018-02-22] MEDS: INSULIN LISPRO 100 UNITS/ML, PEN SQ-INSULIN SCH ×4 (03:00→21:57)
[2018-02-22] MEDS: VALPROATE SODIUM 500 MG in SODIUM CHLORIDE 0.9% 100 ML IV SCH ×2 (03:30→15:45)
[2018-02-22 05:03] LABS: BASOPHILS # (AUTO) 0.04 x10^3/uL (0-0.1); BASOPHILS % (AUTO) 0 % (0-1); EOSINOPHILS # (AUTO) 0.69 x10^3/uL (0-0.4); EOSINOPHILS % (AUTO) 6 % (1-7); LYMPHOCYTES # (AUTO) 2.49 x10^3/uL (1-3.4); LYMPHOCYTES % (AUTO) 20 % (22-44); MD NO; MEAN CORPUSCULAR HEMOGLOBIN 31.6 pg (27.0-34.8); MEAN CORPUSCULAR HGB CONC 33.6 g/dL (32.4-35.8); MONOCYTES # (AUTO) 1.17 x10^3/uL (0.2-0.8); MONOCYTES % (AUTO) 9 % (2-9); NEUTROPHILS # (AUTO) 8.15 x10^3/uL (1.8-6.8); NEUTROPHILS % (AUTO) 65 % (42-75); PLATELET COUNT 269 x10^3/uL (130-400); RED BLOOD COUNT 4.15 x10^6/uL (3.82-5.3); RED CELL DISTRIBUTION WIDTH 15.9 % (9.6-15.2)
[2018-02-22 05:15] LABS: ALBUMIN 2.8 g/dL (3.4-5.0); ANION GAP 5 mmol/L (5-15); CALCIUM 8.8 mg/dL (8.5-10.1); CHLORIDE 114 mmol/L (98-107)
[2018-02-22 05:19] LABS: ALANINE AMINOTRANSFERASE 14 U/L (12-78); ALKALINE PHOSPHATASE 59 U/L (45-117); BILIRUBIN,TOTAL 0.4 mg/dL (0.2-1.0); CREATININE 1.11 mg/dL (0.55-1.02); TOTAL PROTEIN 6.8 g/dL (6.4-8.2)
[2018-02-22] MEDS: METOPROLOL TARTRATE 50 MG TABLET PO SCH ×2 (06:17→18:21)
[2018-02-22] MEDS: LEVOTHYROXINE 25 MCG TABLET PO SCH (06:17)
[2018-02-22 08:14] VITALS: BP 109/66
[2018-02-22] MEDS: SODIUM CHLORIDE FLUSH 10ML SYR IVF SCH ×2 (09:00→21:54)
[2018-02-22] MEDS: METRONIDAZOLE PMX 500MG/100ML 100 ML IV SCH ×2 (09:10→18:02)
[2018-02-22] MEDS: PANTOPRAZOLE 40 MG IV IV SCH (09:14)
[2018-02-22] MEDS: AMLODIPINE 5 MG TABLET PO SCH ×2 (09:22→21:53)
[2018-02-22] MEDS: SENNA/DOCUSATE TABLET PO SCH (09:22)
[2018-02-22] MEDS: ASPIRIN 81 MG TABLET CHEW PO SCH (09:23)
[2018-02-22] MEDS: FONDAPARINUX 2.5 MG/0.5 ML SQ SCH (09:23)
[2018-02-22] MEDS: LISINOPRIL 10 MG TABLET PO SCH (09:23)
[2018-02-22] MEDS: PENTOXIFYLLINE 400 MG TABLET.ER PO SCH (09:23)
[2018-02-22] MEDS: LORazepam 2 MG/ML, 1ML IVPush PRN (09:52)
[2018-02-22] MEDS: ZONISAMIDE 50 MG CAPSULE PO SCH (12:39)
[2018-02-22 15:32] VITALS: BP 146/73
[2018-02-22] MEDS: CEFTRIAXONE 1,000 MG in SODIUM CHLORIDE 0.9% 50 ML IV SCH (17:04)
[2018-02-22 20:08] VITALS: BP 127/64
[2018-02-22] MEDS: ATORVASTATIN 40 MG TABLET PO SCH (21:53)
[2018-02-23 00:12] VITALS: BP 117/62
[2018-02-23] MEDS: METRONIDAZOLE PMX 500MG/100ML 100 ML IV SCH ×3 (01:31→17:24)
[2018-02-23] MEDS: INSULIN LISPRO 100 UNITS/ML, PEN SQ-INSULIN SCH ×4 (03:31→21:54)
[2018-02-23] MEDS: VALPROATE SODIUM 500 MG in SODIUM CHLORIDE 0.9% 100 ML IV SCH ×2 (03:31→15:46)
[2018-02-23] MEDS: LEVOTHYROXINE 25 MCG TABLET PO SCH (05:51)
[2018-02-23] MEDS: METOPROLOL TARTRATE 50 MG TABLET PO SCH ×2 (05:52→18:13)
[2018-02-23 06:49] VITALS: BP 130/68
[2018-02-23] MEDS: FONDAPARINUX 2.5 MG/0.5 ML SQ SCH (08:18)
[2018-02-23] MEDS: ASPIRIN 81 MG TABLET CHEW PO SCH (08:18)
[2018-02-23] MEDS: PENTOXIFYLLINE 400 MG TABLET.ER PO SCH (08:18)
[2018-02-23] MEDS: PANTOPRAZOLE 40 MG IV IV SCH (08:18)
[2018-02-23] MEDS: SENNA/DOCUSATE TABLET PO SCH (08:19)
[2018-02-23] MEDS: SODIUM CHLORIDE FLUSH 10ML SYR IVF SCH ×2 (08:19→21:51)
[2018-02-23] MEDS: ZONISAMIDE 50 MG CAPSULE PO SCH (08:19)
[2018-02-23] MEDS: LISINOPRIL 10 MG TABLET PO SCH (08:19)
[2018-02-23 08:38] LABS: BASOPHILS # (AUTO) 0.07 x10^3/uL (0-0.1); BASOPHILS % (AUTO) 1 % (0-1); EOSINOPHILS # (AUTO) 0.96 x10^3/uL (0-0.4); EOSINOPHILS % (AUTO) 9 % (1-7); LYMPHOCYTES # (AUTO) 2.07 x10^3/uL (1-3.4); LYMPHOCYTES % (AUTO) 19 % (22-44); MD NO; MEAN CORPUSCULAR HEMOGLOBIN 31.3 pg (27.0-34.8); MEAN CORPUSCULAR HGB CONC 33.2 g/dL (32.4-35.8); MEAN CORPUSCULAR VOLUME 94.2 fL (80-100); MONOCYTES % (AUTO) 8 % (2-9); NEUTROPHILS # (AUTO) 6.76 x10^3/uL (1.8-6.8); NEUTROPHILS % (AUTO) 63 % (42-75); PLATELET COUNT 258 x10^3/uL (130-400); RED BLOOD COUNT 4.02 x10^6/uL (3.82-5.3); RED CELL DISTRIBUTION WIDTH 16.8 % (9.6-15.2)
[2018-02-23 08:50] LABS: ALBUMIN 2.8 g/dL (3.4-5.0); ANION GAP 7 mmol/L (5-15); CALCIUM 9.2 mg/dL (8.5-10.1); CHLORIDE 113 mmol/L (98-107)
[2018-02-23 08:51] LABS: CREATININE 1.02 mg/dL (0.55-1.02)
[2018-02-23] MEDS: AMLODIPINE 5 MG TABLET PO SCH ×2 (11:53→21:50)
[2018-02-23 13:34] VITALS: BP 116/70
[2018-02-23] MEDS: CEFTRIAXONE 1,000 MG in SODIUM CHLORIDE 0.9% 50 ML IV SCH (17:21)
[2018-02-23 19:00] VITALS: BP 148/77
[2018-02-23] MEDS: ATORVASTATIN 40 MG TABLET PO SCH (21:50)
[2018-02-24] MEDS: METRONIDAZOLE PMX 500MG/100ML 100 ML IV SCH ×3 (01:34→17:21)
[2018-02-24 02:37] VITALS: BP 122/68
[2018-02-24] MEDS: INSULIN LISPRO 100 UNITS/ML, PEN SQ-INSULIN SCH ×4 (03:00→20:08)
[2018-02-24] MEDS: VALPROATE SODIUM 500 MG in SODIUM CHLORIDE 0.9% 100 ML IV SCH (04:05)
[2018-02-24] MEDS: METOPROLOL TARTRATE 50 MG TABLET PO SCH ×2 (05:56→17:21)
[2018-02-24] MEDS: LEVOTHYROXINE 25 MCG TABLET PO SCH (05:56)
[2018-02-24 07:55] VITALS: BP 134/72
[2018-02-24] MEDS: FONDAPARINUX 2.5 MG/0.5 ML SQ SCH (11:18)
[2018-02-24] MEDS: PANTOPRAZOLE 40 MG IV IV SCH (11:18)
[2018-02-24] MEDS: SENNA/DOCUSATE TABLET PO SCH (11:19)
[2018-02-24] MEDS: ASPIRIN 81 MG TABLET CHEW PO SCH (11:19)
[2018-02-24] MEDS: ZONISAMIDE 50 MG CAPSULE PO SCH (11:19)
[2018-02-24] MEDS: PENTOXIFYLLINE 400 MG TABLET.ER PO SCH (11:19)
[2018-02-24] MEDS: SODIUM CHLORIDE FLUSH 10ML SYR IVF SCH ×2 (11:20→20:08)
[2018-02-24] MEDS: AMLODIPINE 5 MG TABLET PO SCH ×2 (11:20→20:08)
[2018-02-24] MEDS: LISINOPRIL 10 MG TABLET PO SCH (11:27)
[2018-02-24 12:58] VITALS: BP 142/62
[2018-02-24] MEDS: VALPROATE SODIUM 1,000 MG in SODIUM CHLORIDE 0.9% 100 ML IV SCH ×2 (13:18→20:08)
[2018-02-24] MEDS: CEFTRIAXONE 1,000 MG in SODIUM CHLORIDE 0.9% 50 ML IV SCH (17:09)
[2018-02-24 17:19] VITALS: BP 152/65
[2018-02-24 18:21] VITALS: BP 103/67
[2018-02-24] MEDS: ATORVASTATIN 40 MG TABLET PO SCH (20:08)
[2018-02-25] MEDS: METRONIDAZOLE PMX 500MG/100ML 100 ML IV SCH ×3 (01:08→17:35)
[2018-02-25 01:39] VITALS: BP 114/64
[2018-02-25] MEDS: INSULIN LISPRO 100 UNITS/ML, PEN SQ-INSULIN SCH ×4 (03:00→20:37)
[2018-02-25] MEDS: METOPROLOL TARTRATE 50 MG TABLET PO SCH ×2 (05:49→17:36)
[2018-02-25] MEDS: LEVOTHYROXINE 25 MCG TABLET PO SCH (05:50)
[2018-02-25 08:00] VITALS: BP 112/55
[2018-02-25] MEDS: ASPIRIN 81 MG TABLET CHEW PO SCH (09:10)
[2018-02-25] MEDS: SENNA/DOCUSATE TABLET PO SCH (09:10)
[2018-02-25] MEDS: PENTOXIFYLLINE 400 MG TABLET.ER PO SCH (09:11)
[2018-02-25] MEDS: PANTOPRAZOLE 40 MG IV IV SCH (09:11)
[2018-02-25] MEDS: ZONISAMIDE 50 MG CAPSULE PO SCH (09:11)
[2018-02-25] MEDS: LISINOPRIL 10 MG TABLET PO SCH (09:11)
[2018-02-25] MEDS: FONDAPARINUX 2.5 MG/0.5 ML SQ SCH (09:11)
[2018-02-25] MEDS: SODIUM CHLORIDE FLUSH 10ML SYR IVF SCH ×2 (09:12→20:37)
[2018-02-25] MEDS: AMLODIPINE 5 MG TABLET PO SCH ×2 (09:12→20:36)
[2018-02-25] MEDS: VALPROATE SODIUM 1,000 MG in SODIUM CHLORIDE 0.9% 100 ML IV SCH ×2 (11:52→20:35)
[2018-02-25] MEDS: LORazepam 2 MG/ML, 1ML IVPush PRN (11:52)
[2018-02-25 12:55] VITALS: BP 87/52
[2018-02-25] MEDS: ERGOCALCIFEROL 50,000 UNIT CAPSULE PO SCH (13:30)
[2018-02-25] MEDS: CEFTRIAXONE 1,000 MG in SODIUM CHLORIDE 0.9% 50 ML IV SCH (15:52)
[2018-02-25 17:32] VITALS: BP 96/62
[2018-02-25 19:15] VITALS: BP 102/56
[2018-02-25] MEDS: ATORVASTATIN 40 MG TABLET PO SCH (20:36)
[2018-02-26 00:20] VITALS: BP 87/57
[2018-02-26] MEDS: METRONIDAZOLE PMX 500MG/100ML 100 ML IV SCH ×3 (01:13→20:02)
[2018-02-26] MEDS: INSULIN LISPRO 100 UNITS/ML, PEN SQ-INSULIN SCH ×4 (03:00→21:00)
[2018-02-26 03:08] VITALS: BP 103/62
[2018-02-26] MEDS: METOPROLOL TARTRATE 50 MG TABLET PO SCH ×2 (05:31→17:06)
[2018-02-26] MEDS: LEVOTHYROXINE 25 MCG TABLET PO SCH (05:31)
[2018-02-26] MEDS: SENNA/DOCUSATE TABLET PO SCH (08:09)
[2018-02-26] MEDS: ZONISAMIDE 50 MG CAPSULE PO SCH (08:17)
[2018-02-26] MEDS: PENTOXIFYLLINE 400 MG TABLET.ER PO SCH (08:19)
[2018-02-26 08:20] VITALS: BP 103/63
[2018-02-26] MEDS: LISINOPRIL 10 MG TABLET PO SCH (08:20)
[2018-02-26] MEDS: AMLODIPINE 5 MG TABLET PO SCH ×2 (08:21→22:08)
[2018-02-26] MEDS: ASPIRIN 81 MG TABLET CHEW PO SCH (08:21)
[2018-02-26] MEDS: FONDAPARINUX 2.5 MG/0.5 ML SQ SCH (08:22)
[2018-02-26] MEDS: SODIUM CHLORIDE FLUSH 10ML SYR IVF SCH ×2 (11:21→21:00)
[2018-02-26] MEDS: PANTOPROZOLE 40MG TABLET PO SCH (12:33)
[2018-02-26] MEDS: VALPROATE SODIUM 1,000 MG in SODIUM CHLORIDE 0.9% 100 ML IV SCH (12:39)
[2018-02-26 13:30] VITALS: BP 137/56
[2018-02-26] MEDS: CEFTRIAXONE 1,000 MG in SODIUM CHLORIDE 0.9% 50 ML IV SCH (17:06)
[2018-02-26 20:00] VITALS: BP 107/65
[2018-02-26] MEDS: ATORVASTATIN 40 MG TABLET PO SCH (22:08)
[2018-02-27 01:42] VITALS: BP 122/78
[2018-02-27] MEDS: VALPROATE SODIUM 1,000 MG in SODIUM CHLORIDE 0.9% 100 ML IV SCH ×3 (01:56→21:10)
[2018-02-27] MEDS: INSULIN LISPRO 100 UNITS/ML, PEN SQ-INSULIN SCH ×4 (03:00→21:51)
[2018-02-27 06:46] VITALS: BP 121/68
[2018-02-27] MEDS: METOPROLOL TARTRATE 50 MG TABLET PO SCH ×2 (06:47→18:43)
[2018-02-27] MEDS: LEVOTHYROXINE 25 MCG TABLET PO SCH (06:47)
[2018-02-27] MEDS: SODIUM CHLORIDE FLUSH 10ML SYR IVF SCH ×2 (09:00→21:00)
[2018-02-27] MEDS: PANTOPROZOLE 40MG TABLET PO SCH (09:14)
[2018-02-27] MEDS: LISINOPRIL 10 MG TABLET PO SCH (09:14)
[2018-02-27] MEDS: PENTOXIFYLLINE 400 MG TABLET.ER PO SCH (09:14)
[2018-02-27] MEDS: SENNA/DOCUSATE TABLET PO SCH (09:14)
[2018-02-27] MEDS: ZONISAMIDE 50 MG CAPSULE PO SCH (09:14)
[2018-02-27] MEDS: AMLODIPINE 5 MG TABLET PO SCH ×2 (09:14→21:10)
[2018-02-27] MEDS: FONDAPARINUX 2.5 MG/0.5 ML SQ SCH (09:15)
[2018-02-27] MEDS: METRONIDAZOLE PMX 500MG/100ML 100 ML IV SCH ×3 (09:15→17:06)
[2018-02-27] MEDS: ASPIRIN 81 MG TABLET CHEW PO SCH (09:15)
[2018-02-27 16:40] VITALS: BP 116/71
[2018-02-27] MEDS: CEFTRIAXONE 1,000 MG in SODIUM CHLORIDE 0.9% 50 ML IV SCH (18:44)
[2018-02-27 20:00] VITALS: BP 121/67
[2018-02-27] MEDS: ATORVASTATIN 40 MG TABLET PO SCH (21:10)
[2018-02-28] MEDS: METRONIDAZOLE PMX 500MG/100ML 100 ML IV SCH ×3 (00:59→18:18)
[2018-02-28 02:00] VITALS: BP 119/68
[2018-02-28] MEDS: INSULIN LISPRO 100 UNITS/ML, PEN SQ-INSULIN SCH ×4 (03:00→20:52)
[2018-02-28] MEDS: METOPROLOL TARTRATE 50 MG TABLET PO SCH ×2 (05:33→18:18)
[2018-02-28] MEDS: LEVOTHYROXINE 25 MCG TABLET PO SCH (05:33)
[2018-02-28] MEDS: ZONISAMIDE 50 MG CAPSULE PO SCH (08:29)
[2018-02-28] MEDS: SENNA/DOCUSATE TABLET PO SCH (08:29)
[2018-02-28] MEDS: PANTOPROZOLE 40MG TABLET PO SCH (08:30)
[2018-02-28] MEDS: LISINOPRIL 10 MG TABLET PO SCH (08:30)
[2018-02-28] MEDS: ASPIRIN 81 MG TABLET CHEW PO SCH (08:30)
[2018-02-28] MEDS: PENTOXIFYLLINE 400 MG TABLET.ER PO SCH (08:30)
[2018-02-28] MEDS: AMLODIPINE 5 MG TABLET PO SCH ×2 (08:30→21:14)
[2018-02-28] MEDS: SODIUM CHLORIDE FLUSH 10ML SYR IVF SCH ×2 (08:36→21:14)
[2018-02-28] MEDS: FONDAPARINUX 2.5 MG/0.5 ML SQ SCH (08:37)
[2018-02-28 08:46] VITALS: BP 146/74
[2018-02-28] MEDS: VALPROATE SODIUM 1,000 MG in SODIUM CHLORIDE 0.9% 100 ML IV SCH ×2 (10:19→21:47)
[2018-02-28] MEDS: LORazepam 2 MG/ML, 1ML IVPush PRN (15:13)
[2018-02-28] MEDS ORDERED: ZONISAMIDE 50 MG CAPSULE PO ONE (16:00)
[2018-02-28 16:03] VITALS: BP 131/70
[2018-02-28] MEDS: CEFTRIAXONE 1,000 MG in SODIUM CHLORIDE 0.9% 50 ML IV SCH (16:38)
[2018-02-28 18:36] VITALS: BP 163/70
[2018-02-28] MEDS: ATORVASTATIN 40 MG TABLET PO SCH (21:14)
[2018-03-01] MEDS: METRONIDAZOLE PMX 500MG/100ML 100 ML IV SCH ×2 (01:25→11:17)
[2018-03-01 01:35] VITALS: BP 101/59
[2018-03-01 02:46] VITALS: BP 102/67
[2018-03-01] MEDS: INSULIN LISPRO 100 UNITS/ML, PEN SQ-INSULIN SCH ×4 (02:49→21:00)
[2018-03-01 04:20] VITALS: BP 119/72
[2018-03-01] MEDS: METOPROLOL TARTRATE 50 MG TABLET PO SCH ×2 (05:36→18:18)
[2018-03-01] MEDS: LEVOTHYROXINE 25 MCG TABLET PO SCH (05:36)
[2018-03-01 07:38] VITALS: BP 123/71
[2018-03-01] MEDS: VALPROATE SODIUM 1,000 MG in SODIUM CHLORIDE 0.9% 100 ML IV SCH ×2 (09:29→21:31)
[2018-03-01] MEDS: SODIUM CHLORIDE FLUSH 10ML SYR IVF SCH ×2 (09:29→21:31)
[2018-03-01] MEDS: PENTOXIFYLLINE 400 MG TABLET.ER PO SCH (10:07)
[2018-03-01] MEDS: SENNA/DOCUSATE TABLET PO SCH (10:08)
[2018-03-01] MEDS: LISINOPRIL 10 MG TABLET PO SCH (10:08)
[2018-03-01] MEDS: AMLODIPINE 5 MG TABLET PO SCH ×2 (10:08→21:31)
[2018-03-01] MEDS: FONDAPARINUX 2.5 MG/0.5 ML SQ SCH (10:09)
[2018-03-01] MEDS: PANTOPROZOLE 40MG TABLET PO SCH (10:09)
[2018-03-01] MEDS: ASPIRIN 81 MG TABLET CHEW PO SCH (10:09)
[2018-03-01 16:00] VITALS: BP 112/66
[2018-03-01 18:56] VITALS: BP 108/64
[2018-03-01] MEDS: ZONISAMIDE 50 MG CAPSULE PO SCH (21:30)
[2018-03-01] MEDS: ATORVASTATIN 40 MG TABLET PO SCH (21:31)
[2018-03-02 01:40] VITALS: BP 127/69
[2018-03-02] MEDS: INSULIN LISPRO 100 UNITS/ML, PEN SQ-INSULIN SCH (03:00)
[2018-03-02] MEDS: LEVOTHYROXINE 25 MCG TABLET PO SCH (06:25)
[2018-03-02] MEDS: METOPROLOL TARTRATE 50 MG TABLET PO SCH ×2 (06:25→18:25)
[2018-03-02 07:05] VITALS: BP 123/63
[2018-03-02] MEDS: SENNA/DOCUSATE TABLET PO SCH (08:49)
[2018-03-02] MEDS: FONDAPARINUX 2.5 MG/0.5 ML SQ SCH (08:49)
[2018-03-02] MEDS: SODIUM CHLORIDE FLUSH 10ML SYR IVF SCH ×2 (08:49→20:27)
[2018-03-02] MEDS: AMLODIPINE 5 MG TABLET PO SCH ×2 (08:49→20:27)
[2018-03-02] MEDS: ASPIRIN 81 MG TABLET CHEW PO SCH (08:49)
[2018-03-02] MEDS: PENTOXIFYLLINE 400 MG TABLET.ER PO SCH (08:49)
[2018-03-02] MEDS: PANTOPROZOLE 40MG TABLET PO SCH (08:49)
[2018-03-02] MEDS: LISINOPRIL 10 MG TABLET PO SCH (08:49)
[2018-03-02] MEDS: VALPROATE SODIUM 1,000 MG in SODIUM CHLORIDE 0.9% 100 ML IV SCH ×2 (09:47→21:16)
[2018-03-02 13:50] VITALS: BP 140/68
[2018-03-02 18:25] VITALS: BP 148/71
[2018-03-02 19:09] VITALS: BP 138/70
[2018-03-02] MEDS: ZONISAMIDE 50 MG CAPSULE PO SCH (20:27)
[2018-03-02] MEDS: ATORVASTATIN 40 MG TABLET PO SCH (20:27)
[2018-03-03 00:28] VITALS: BP 145/76
[2018-03-03] MEDS: METOPROLOL TARTRATE 50 MG TABLET PO SCH ×2 (06:41→18:42)
[2018-03-03] MEDS: LEVOTHYROXINE 25 MCG TABLET PO SCH (06:41)
[2018-03-03 07:06] VITALS: BP 142/79
[2018-03-03] MEDS: PANTOPROZOLE 40MG TABLET PO SCH (07:28)
[2018-03-03] MEDS: PENTOXIFYLLINE 400 MG TABLET.ER PO SCH (10:16)
[2018-03-03] MEDS: VALPROATE SODIUM 1,000 MG in SODIUM CHLORIDE 0.9% 100 ML IV SCH ×2 (10:16→20:18)
[2018-03-03] MEDS: SENNA/DOCUSATE TABLET PO SCH (10:16)
[2018-03-03] MEDS: AMLODIPINE 5 MG TABLET PO SCH ×2 (10:16→20:18)
[2018-03-03] MEDS: ASPIRIN 81 MG TABLET CHEW PO SCH (10:16)
[2018-03-03] MEDS: FONDAPARINUX 2.5 MG/0.5 ML SQ SCH (10:17)
[2018-03-03] MEDS: LISINOPRIL 10 MG TABLET PO SCH (10:17)
[2018-03-03] MEDS: SODIUM CHLORIDE FLUSH 10ML SYR IVF SCH ×2 (10:17→20:19)
[2018-03-03 14:20] VITALS: BP 117/54
[2018-03-03 18:40] VITALS: BP 133/75
[2018-03-03 19:55] VITALS: BP 80/48
[2018-03-03 20:04] VITALS: BP 115/73
[2018-03-03] MEDS: ZONISAMIDE 50 MG CAPSULE PO SCH (20:18)
[2018-03-03] MEDS: ATORVASTATIN 40 MG TABLET PO SCH (20:18)
[2018-03-04 00:24] VITALS: BP 90/58
[2018-03-04 04:47] LABS: BASOPHILS # (AUTO) 0.08 x10^3/uL (0-0.1); BASOPHILS % (AUTO) 1 % (0-1); EOSINOPHILS # (AUTO) 0.45 x10^3/uL (0-0.4); EOSINOPHILS % (AUTO) 4 % (1-7); LYMPHOCYTES # (AUTO) 2.82 x10^3/uL (1-3.4); LYMPHOCYTES % (AUTO) 27 % (22-44); MD NO; MEAN CORPUSCULAR HEMOGLOBIN 32.5 pg (27.0-34.8); MEAN CORPUSCULAR HGB CONC 34.4 g/dL (32.4-35.8); MEAN CORPUSCULAR VOLUME 94.5 fL (80-100); MEAN PLATELET VOLUME 7.5 fL (7.4-10.4); MONOCYTES # (AUTO) 1.05 x10^3/uL (0.2-0.8); MONOCYTES % (AUTO) 10 % (2-9); NEUTROPHILS # (AUTO) 6.16 x10^3/uL (1.8-6.8); NEUTROPHILS % (AUTO) 58 % (42-75); PLATELET COUNT 258 x10^3/uL (130-400); RED BLOOD COUNT 4.43 x10^6/uL (3.82-5.3); RED CELL DISTRIBUTION WIDTH 17.3 % (9.6-15.2)
[2018-03-04 04:56] LABS: ALBUMIN 3.1 g/dL (3.4-5.0); ANION GAP 9 mmol/L (5-15); CHLORIDE 114 mmol/L (98-107)
[2018-03-04 07:03] VITALS: BP 110/63
[2018-03-04 08:00] VITALS: BP 114/63
[2018-03-04] MEDS: PANTOPROZOLE 40MG TABLET PO SCH (08:03)
[2018-03-04] MEDS: LEVOTHYROXINE 25 MCG TABLET PO SCH (08:03)
[2018-03-04] MEDS: METOPROLOL TARTRATE 50 MG TABLET PO SCH ×2 (08:05→20:08)
[2018-03-04 10:05] VITALS: BP 116/67
[2018-03-04] MEDS: VALPROATE SODIUM 1,000 MG in SODIUM CHLORIDE 0.9% 100 ML IV SCH ×2 (10:07→20:07)
[2018-03-04] MEDS: FONDAPARINUX 2.5 MG/0.5 ML SQ SCH (10:08)
[2018-03-04] MEDS: LISINOPRIL 10 MG TABLET PO SCH (10:10)
[2018-03-04] MEDS: PENTOXIFYLLINE 400 MG TABLET.ER PO SCH (10:10)
[2018-03-04] MEDS: AMLODIPINE 5 MG TABLET PO SCH ×2 (10:10→20:08)
[2018-03-04] MEDS: SENNA/DOCUSATE TABLET PO SCH (10:11)
[2018-03-04] MEDS: ASPIRIN 81 MG TABLET CHEW PO SCH (10:11)
[2018-03-04] MEDS: SODIUM CHLORIDE FLUSH 10ML SYR IVF SCH ×2 (10:12→20:09)
[2018-03-04 13:09] VITALS: BP 99/65
[2018-03-04] MEDS: ERGOCALCIFEROL 50,000 UNIT CAPSULE PO SCH (13:30)
[2018-03-04 19:28] VITALS: BP 104/68
[2018-03-04] MEDS: ATORVASTATIN 40 MG TABLET PO SCH (20:08)
[2018-03-04] MEDS: ZONISAMIDE 50 MG CAPSULE PO SCH (20:08)
[2018-03-05 01:28] VITALS: BP 96/62
[2018-03-05] MEDS: METOPROLOL TARTRATE 50 MG TABLET PO SCH ×3 (05:28→18:03)
[2018-03-05 07:09] VITALS: BP 126/67
[2018-03-05] MEDS: VALPROATE SODIUM 1,000 MG in SODIUM CHLORIDE 0.9% 100 ML IV SCH (09:13)
[2018-03-05] MEDS: AMLODIPINE 5 MG TABLET PO SCH ×2 (09:14→21:17)
[2018-03-05] MEDS: SENNA/DOCUSATE TABLET PO SCH (09:14)
[2018-03-05] MEDS: ASPIRIN 81 MG TABLET CHEW PO SCH (09:14)
[2018-03-05] MEDS: FONDAPARINUX 2.5 MG/0.5 ML SQ SCH (09:14)
[2018-03-05] MEDS: PANTOPROZOLE 40MG TABLET PO SCH (09:14)
[2018-03-05] MEDS: LISINOPRIL 10 MG TABLET PO SCH (09:14)
[2018-03-05] MEDS: PENTOXIFYLLINE 400 MG TABLET.ER PO SCH (09:14)
[2018-03-05] MEDS: SODIUM CHLORIDE FLUSH 10ML SYR IVF SCH ×2 (09:15→21:16)
[2018-03-05] MEDS: LEVOTHYROXINE 25 MCG TABLET PO SCH (09:15)
[2018-03-05] MEDS ORDERED: LEVO25TA2 PO (09:54)
[2018-03-05] MEDS ORDERED: METO50TA82 PO (09:54)
[2018-03-05] MEDS ORDERED: ATOR40TA78 PO (09:54)
[2018-03-05] MEDS ORDERED: PENT400T9 PO (09:54)
[2018-03-05] MEDS ORDERED: ZONI50CA2 PO (09:54)
[2018-03-05] MEDS ORDERED: ERGO500017 PO (09:54)
[2018-03-05] MEDS ORDERED: PANT40TA5 PO (09:54)
[2018-03-05] MEDS ORDERED: LISI-167 PO (09:54)
[2018-03-05] MEDS ORDERED: ASPI-515 PO (09:54)
[2018-03-05] MEDS ORDERED: VALP250S PO (09:55)
[2018-03-05 12:42] VITALS: BP 147/56
[2018-03-05 18:02] VITALS: BP 95/57
[2018-03-05 20:00] VITALS: BP 110/59
[2018-03-05] MEDS: VALPROATE SODIUM 250 MG/5 ML ORAL SOLN PO SCH (21:16)
[2018-03-05] MEDS: ZONISAMIDE 50 MG CAPSULE PO SCH (21:17)
[2018-03-05] MEDS: ATORVASTATIN 40 MG TABLET PO SCH (21:17)
[2018-03-06 03:00] VITALS: BP 147/73
[2018-03-06 06:56] VITALS: BP 130/65
[2018-03-06] MEDS ORDERED: PANTOPRAZOLE GRAN. PKT 40 MG PO SCH (07:30)
[2018-03-06] MEDS: ASPIRIN 81 MG TABLET CHEW PO SCH (08:58)
[2018-03-06] MEDS: FONDAPARINUX 2.5 MG/0.5 ML SQ SCH (08:58)
[2018-03-06] MEDS: LEVOTHYROXINE 25 MCG TABLET PO SCH (08:58)
[2018-03-06] MEDS: VALPROATE SODIUM 250 MG/5 ML ORAL SOLN PO SCH (08:58)
[2018-03-06] MEDS: SENNA/DOCUSATE TABLET PO SCH (08:58)
[2018-03-06] MEDS: AMLODIPINE 5 MG TABLET PO SCH (08:59)
[2018-03-06] MEDS: PENTOXIFYLLINE 400 MG TABLET.ER PO SCH (08:59)
[2018-03-06] MEDS: SODIUM CHLORIDE FLUSH 10ML SYR IVF SCH (08:59)
[2018-03-06] MEDS: LISINOPRIL 10 MG TABLET PO SCH (08:59)
[2018-03-06] MEDS: METOPROLOL TARTRATE 50 MG TABLET PO SCH (09:00)
[2018-03-06 12:51] VITALS: BP 148/80
== END 2018-03-06 16:13 | DRG 208 ==
LOC: CCU 10:49 → 4WST 02-21 14:30
PROVIDERS: ADMIT Internal Medicine; ATTEND Hospitalist
PROC: 0T9B70Z Drainage of Bladder with Drainage Device, Via Natural or Artificial Opening (ICD-10-PCS; principal; 2018-02-18)
PROC: 5A1935Z Respiratory Ventilation, Less than 24 Consecutive Hours (ICD-10-PCS; 2018-02-18)
PROC: 0BH17EZ Insertion of Endotracheal Airway into Trachea, Via Natural or Artificial Opening (ICD-10-PCS; 2018-02-18)
DX: J96.00 Acute respiratory failure, unspecified whether with hypoxia or hypercapnia (principal); J69.0 Pneumonitis due to inhalation of food and vomit; G93.41 Metabolic encephalopathy; I42.9 Cardiomyopathy, unspecified; F23 Brief psychotic disorder; Z99.11 Dependence on respirator [ventilator] status; G40.201 Localization-related (focal) (partial) symptomatic epilepsy and epileptic syndromes with complex partial seizures, not intractable, with status epilepticus; F17.210 Nicotine dependence, cigarettes, uncomplicated; E03.9 Hypothyroidism, unspecified; G89.29 Other chronic pain; M79.606 Pain in leg, unspecified; G24.01 Drug induced subacute dyskinesia; F09 Unspecified mental disorder due to known physiological condition; I73.9 Peripheral vascular disease, unspecified; J44.9 Chronic obstructive pulmonary disease, unspecified; Z90.49 Acquired absence of other specified parts of digestive tract; N18.9 Chronic kidney disease, unspecified; G30.9 Alzheimer's disease, unspecified; F02.80 Dementia in other diseases classified elsewhere, unspecified severity, without behavioral disturbance, psychotic disturbance, mood disturbance, and anxiety; I12.9 Hypertensive chronic kidney disease with stage 1 through stage 4 chronic kidney disease, or unspecified chronic kidney disease; I25.10 Atherosclerotic heart disease of native coronary artery without angina pectoris; I25.5 Ischemic cardiomyopathy; Z79.899 Other long term (current) drug therapy; Z79.82 Long term (current) use of aspirin; Z90.710 Acquired absence of both cervix and uterus; Z91.14 Patient's other noncompliance with medication regimen; Z95.5 Presence of coronary angioplasty implant and graft; Z95.0 Presence of cardiac pacemaker; Z71.6 Tobacco abuse counseling; Z87.11 Personal history of peptic ulcer disease; Z86.19 Personal history of other infectious and parasitic diseases; I69.30 Unspecified sequelae of cerebral infarction; Z88.0 Allergy status to penicillin; Z88.6 Allergy status to analgesic agent; Z88.8 Allergy status to other drugs, medicaments and biological substances
CPT/HCPCS: 36415; 36600; 71045; 74018; 80048; 80053; 80069; 80164; 81003; 82040; 82306; 82533; 82803; 82962; 83735; 83970; 84100; 84439; 84443; 84478; 84481; 85025; 85610; 87070; 87081; 87205; 94002; 94003; 94150; 95951; J0696; J1650; J2250; J2405; J2704; C9113; J1652; J1815; J2060; J3475; J7030; J7040

== ENCOUNTER 2018-04-05 05:40 | Emergency (ER) | payer MEDICARE, OTHER ==
[~2018-04-05] VITALS: Ht 172.7 cm; Wt 64.0 kg
[~2018-04-05 05:40] MED LIST changes: +ASPI-515 PO; +ERGO500017 PO; +PANT40TA5 PO; +VALP250S PO
[2018-04-05] MEDS ORDERED: LIDOCAINE 1%-EPI 1:100K, 30ML ONE (05:57)
[2018-04-05] MEDS ORDERED: LIDOCAINE-MPF 1%, 5ML INFIL ONE (06:00)
[2018-04-05] MEDS ORDERED: DIPH,PERTUSS(ACELL),TET VAC/PF 0.5 ML IM-VACC ONE ×2 (06:00→06:23)
[2018-04-05] MEDS ORDERED: PLEASE ENTER HEIGHT AND WEIGHT MC SCH (06:00)
[2018-04-05] MEDS ORDERED: LEVO50TA5 PO (06:20)
[2018-04-05] MEDS ORDERED: NICO-485 TD (06:20)
[2018-04-05] MEDS ORDERED: ATOR40TA78 PO (06:20)
[2018-04-05] MEDS ORDERED: CHOL5000 PO (06:20)
[2018-04-05] MEDS ORDERED: BACITRACIN ZINC OINT 500U/GM, 0.9 GM ONE (06:50)
[2018-04-05 08:56] VITALS: BP 113/56
== END 2018-04-05 10:39 | disposition home or self-care (01) ==
LOC: ED 06:05
DX: S01.81XA Laceration without foreign body of other part of head, initial encounter (principal); I11.0 Hypertensive heart disease with heart failure; I50.9 Heart failure, unspecified; I25.10 Atherosclerotic heart disease of native coronary artery without angina pectoris; E78.00 Pure hypercholesterolemia, unspecified; Z86.73 Personal history of transient ischemic attack (TIA), and cerebral infarction without residual deficits; Z95.0 Presence of cardiac pacemaker; W19.XXXA Unspecified fall, initial encounter; Y93.89 Activity, other specified; Y92.129 Unspecified place in nursing home as the place of occurrence of the external cause; Y99.8 Other external cause status
CPT/HCPCS: 12052; 70450; 90471; 90715; 99284

== ENCOUNTER 2018-04-30 11:00 | Inpatient (IN) | payer MEDICARE, OTHER ==
[~2018-04-30] VITALS: Ht 165.1 cm; Wt 36.6 kg
[~2018-04-30 11:00] MED LIST changes: -AMLO5TAB2 PO; +AMLO5TAB7 PO; +CHOL5000 PO; +LEVO50TA5 PO; +NICO-485 TD
[2018-04-30] MEDS ORDERED: DOXE4VIA PO (11:33)
[2018-04-30] MEDS ORDERED: METO50TA82 PO (11:35)
[2018-04-30] MEDS ORDERED: AMLO5TAB4 PO (11:36)
[2018-04-30] MEDS ORDERED: PENT400T9 PO (11:37)
[2018-04-30] MEDS ORDERED: ALIR75PE INJ (11:40)
[2018-04-30] MEDS ORDERED: PANT40TA3 PO (11:42)
[2018-04-30] MEDS ORDERED: NYST1000 PO (11:44)
[2018-04-30 12:14] LABS: CHLORIDE 113 mmol/L (98-107)
[2018-04-30 12:29] LABS: ALANINE AMINOTRANSFERASE 18 U/L (12-78); ALBUMIN 2.4 g/dL (3.4-5.0); ALKALINE PHOSPHATASE 96 U/L (45-117); ANION GAP 8 mmol/L (5-15); BILIRUBIN,TOTAL 0.5 mg/dL (0.2-1.0); CALCIUM 9.2 mg/dL (8.5-10.1); CREATININE 1.67 mg/dL (0.55-1.02); TOTAL PROTEIN 8.2 g/dL (6.4-8.2)
[2018-04-30 12:40] LABS: CULTURE INDICATED? YES; MICROSCOPIC INDICATED
[2018-04-30 12:42] LABS: FREE T4 (FREE THYROXINE) 0.53 ng/dL (0.76-1.46)
[2018-04-30 13:19] LABS: MEAN CORPUSCULAR HEMOGLOBIN 34.2 pg (27.0-34.8); MEAN CORPUSCULAR VOLUME 100.6 fL (80-100); MEAN PLATELET VOLUME 6.4 fL (7.4-10.4); PLATELET COUNT 185 x10^3/uL (130-400); RED CELL DISTRIBUTION WIDTH 20.1 % (9.6-15.2)
[2018-04-30] MEDS ORDERED: CEFTRIAXONE 1,000 MG in SODIUM CHLORIDE 0.9% 50 ML IV SCH (13:30)
[2018-04-30] MEDS: SODIUM CHLORIDE 0.9% 1,000 ML IV SCH ×2 (13:30→17:04)
[2018-04-30 13:35] LABS: BASOPHILS # (AUTO) 0.05 x10^3/uL (0-0.1); BASOPHILS % (AUTO) 1 % (0-1); EOSINOPHILS # (AUTO) 0.14 x10^3/uL (0-0.4); EOSINOPHILS % (AUTO) 1 % (1-7); LYMPHOCYTES # (AUTO) 2.14 x10^3/uL (1-3.4); LYMPHOCYTES % (AUTO) 19 % (22-44); MD SCAN; MONOCYTES # (AUTO) 1.67 x10^3/uL (0.2-0.8); MONOCYTES % (AUTO) 15 % (2-9); NEUTROPHILS # (AUTO) 7.52 x10^3/uL (1.8-6.8); NEUTROPHILS % (AUTO) 65 % (42-75)
[2018-04-30] MEDS ORDERED: SODIUM CHLORIDE 0.9% 1,000 ML IV ONE (13:55)
[2018-04-30] MEDS ORDERED: SODIUM CHLORIDE FLUSH 10ML SYR IVF PRN (14:00)
[2018-04-30] MEDS ORDERED: CEFTRIAXONE PMX 1GM/50ML 50 ML ONE (16:04)
[2018-04-30] MEDS ORDERED: ONDANSETRON ODT 4 MG PO PRN (16:30)
[2018-04-30] MEDS ORDERED: ONDANSETRON 2MG/ML, 2ML IVPush PRN (16:30)
[2018-04-30 17:13] VITALS: BP 138/65
[2018-04-30 18:57] VITALS: BP 147/78
[2018-04-30] MEDS: METOPROLOL TARTRATE 50 MG TABLET PO SCH (21:00)
[2018-04-30] MEDS: VALPROIC ACID 250 MG CAPSULE PO SCH (21:00)
[2018-04-30] MEDS: ZONISAMIDE 50 MG CAPSULE PO SCH (21:00)
[2018-05-01 00:29] VITALS: BP 130/67
[2018-05-01] MEDS: SODIUM CHLORIDE 0.9% 1,000 ML IV SCH ×4 (02:26→20:21)
[2018-05-01 04:34] LABS: ALANINE AMINOTRANSFERASE 12 U/L (12-78); ALBUMIN 1.9 g/dL (3.4-5.0); ANION GAP 8 mmol/L (5-15); CALCIUM 8.3 mg/dL (8.5-10.1); CHLORIDE 115 mmol/L (98-107); CREATININE 1.23 mg/dL (0.55-1.02)
[2018-05-01 04:37] LABS: ALKALINE PHOSPHATASE 82 U/L (45-117); BILIRUBIN,TOTAL 0.3 mg/dL (0.2-1.0); TOTAL PROTEIN 6.7 g/dL (6.4-8.2)
[2018-05-01 04:38] LABS: BASOPHILS # (AUTO) 0.03 x10^3/uL (0-0.1); BASOPHILS % (AUTO) 0 % (0-1); EOSINOPHILS # (AUTO) 0.08 x10^3/uL (0-0.4); EOSINOPHILS % (AUTO) 1 % (1-7); LYMPHOCYTES # (AUTO) 1.84 x10^3/uL (1-3.4); LYMPHOCYTES % (AUTO) 21 % (22-44); MD NO; MEAN CORPUSCULAR HEMOGLOBIN 33.8 pg (27.0-34.8); MEAN CORPUSCULAR HGB CONC 34.3 g/dL (32.4-35.8); MEAN CORPUSCULAR VOLUME 98.5 fL (80-100); MEAN PLATELET VOLUME 6.3 fL (7.4-10.4); MONOCYTES # (AUTO) 1.42 x10^3/uL (0.2-0.8); MONOCYTES % (AUTO) 16 % (2-9); NEUTROPHILS # (AUTO) 5.42 x10^3/uL (1.8-6.8); NEUTROPHILS % (AUTO) 62 % (42-75); PLATELET COUNT 154 x10^3/uL (130-400); RED BLOOD COUNT 2.75 x10^6/uL (3.82-5.3); RED CELL DISTRIBUTION WIDTH 19.9 % (9.6-15.2)
[2018-05-01 07:23] VITALS: BP 107/63
[2018-05-01] MEDS: CEFTRIAXONE 2 GM in SODIUM CHLORIDE 0.9% 50 ML IV SCH (07:43)
[2018-05-01] MEDS: METOPROLOL TARTRATE 50 MG TABLET PO SCH ×2 (11:05→21:49)
[2018-05-01] MEDS: PANTOPROZOLE 40MG TABLET PO SCH (11:05)
[2018-05-01] MEDS: AMLODIPINE 5 MG TABLET PO SCH (11:05)
[2018-05-01] MEDS: VALPROIC ACID 250 MG CAPSULE PO SCH ×2 (11:06→21:49)
[2018-05-01] MEDS: ASPIRIN 81 MG TABLET EC PO SCH (11:06)
[2018-05-01] MEDS: LEVOTHYROXINE 100 MCG INJ IVPush SCH (11:06)
[2018-05-01] MEDS: PENTOXIFYLLINE 400 MG TABLET.ER PO SCH (12:41)
[2018-05-01 13:51] VITALS: BP 109/45
[2018-05-01] MEDS ORDERED: CEFTRIAXONE 1,000 MG in SODIUM CHLORIDE 0.9% 50 ML IV SCH (16:00)
[2018-05-01 18:51] VITALS: BP 134/76
[2018-05-01] MEDS: ZONISAMIDE 50 MG CAPSULE PO SCH (21:49)
[2018-05-01] MEDS: LORazepam 2 MG/ML, 1ML IVPush PRN (23:05)
[2018-05-02 01:25] VITALS: BP 155/83
[2018-05-02 04:57] LABS: CHLORIDE 113 mmol/L (98-107)
[2018-05-02 05:08] LABS: ALANINE AMINOTRANSFERASE 14 U/L (12-78); ALKALINE PHOSPHATASE 93 U/L (45-117); ANION GAP 8 mmol/L (5-15); BILIRUBIN,TOTAL 0.3 mg/dL (0.2-1.0); CALCIUM 8.3 mg/dL (8.5-10.1); CREATININE 1.12 mg/dL (0.55-1.02); TOTAL PROTEIN 7.1 g/dL (6.4-8.2)
[2018-05-02 05:58] LABS: MEAN CORPUSCULAR HEMOGLOBIN 33.4 pg (27.0-34.8); MEAN CORPUSCULAR HGB CONC 33.7 g/dL (32.4-35.8); MEAN CORPUSCULAR VOLUME 99.2 fL (80-100); MEAN PLATELET VOLUME 7.1 fL (7.4-10.4); PLATELET COUNT 126 x10^3/uL (130-400); RED BLOOD COUNT 2.92 x10^6/uL (3.82-5.3); RED CELL DISTRIBUTION WIDTH 19.1 % (9.6-15.2)
[2018-05-02 06:00] LABS: BASOPHILS # (AUTO) 0.03 x10^3/uL (0-0.1); BASOPHILS % (AUTO) 0 % (0-1); EOSINOPHILS # (AUTO) 0.25 x10^3/uL (0-0.4); EOSINOPHILS % (AUTO) 3 % (1-7); LYMPHOCYTES # (AUTO) 2.15 x10^3/uL (1-3.4); LYMPHOCYTES % (AUTO) 24 % (22-44); MD SCAN; MONOCYTES # (AUTO) 1.24 x10^3/uL (0.2-0.8); MONOCYTES % (AUTO) 14 % (2-9); NEUTROPHILS # (AUTO) 5.28 x10^3/uL (1.8-6.8); NEUTROPHILS % (AUTO) 59 % (42-75)
[2018-05-02] MEDS: CEFTRIAXONE 2 GM in SODIUM CHLORIDE 0.9% 50 ML IV SCH (06:29)
[2018-05-02 08:03] VITALS: BP 105/64
[2018-05-02] MEDS: VALPROIC ACID 250 MG CAPSULE PO SCH ×2 (08:21→19:52)
[2018-05-02] MEDS: SODIUM CHLORIDE 0.9% 1,000 ML IV SCH ×4 (08:21→21:32)
[2018-05-02] MEDS: LEVOTHYROXINE 100 MCG INJ IVPush SCH (08:21)
[2018-05-02] MEDS: AMLODIPINE 5 MG TABLET PO SCH (08:22)
[2018-05-02] MEDS: ASPIRIN 81 MG TABLET EC PO SCH (08:22)
[2018-05-02] MEDS: PANTOPROZOLE 40MG TABLET PO SCH (08:22)
[2018-05-02] MEDS: PENTOXIFYLLINE 400 MG TABLET.ER PO SCH (08:22)
[2018-05-02] MEDS: METOPROLOL TARTRATE 50 MG TABLET PO SCH ×2 (08:22→19:51)
[2018-05-02 12:54] VITALS: BP 100/61
[2018-05-02 18:31] VITALS: BP 149/76
[2018-05-02 19:50] VITALS: BP 151/73
[2018-05-02] MEDS: ZONISAMIDE 50 MG CAPSULE PO SCH (19:52)
[2018-05-02] MEDS: LORazepam 2 MG/ML, 1ML IVPush PRN (22:08)
[2018-05-02 23:38] VITALS: BP 142/84
[2018-05-03] MEDS: ACETAMINOPHEN 325 MG TABLET PO PRN (03:20)
[2018-05-03 03:41] LABS: MEAN CORPUSCULAR HEMOGLOBIN 33.5 pg (27.0-34.8); MEAN CORPUSCULAR HGB CONC 33.9 g/dL (32.4-35.8); MEAN CORPUSCULAR VOLUME 98.6 fL (80-100); MEAN PLATELET VOLUME 7.1 fL (7.4-10.4); PLATELET COUNT 141 x10^3/uL (130-400); RED BLOOD COUNT 3.16 x10^6/uL (3.82-5.3)
[2018-05-03 03:44] LABS: ANION GAP 9 mmol/L (5-15); CALCIUM 8.2 mg/dL (8.5-10.1); CHLORIDE 117 mmol/L (98-107); CREATININE 1.15 mg/dL (0.55-1.02)
[2018-05-03 04:20] LABS: BASOPHILS # (AUTO) 0.03 x10^3/uL (0-0.1); BASOPHILS % (AUTO) 0 % (0-1); EOSINOPHILS # (AUTO) 0.33 x10^3/uL (0-0.4); EOSINOPHILS % (AUTO) 4 % (1-7); LYMPHOCYTES # (AUTO) 2.24 x10^3/uL (1-3.4); LYMPHOCYTES % (AUTO) 26 % (22-44); MD SCAN; MONOCYTES # (AUTO) 1.24 x10^3/uL (0.2-0.8); MONOCYTES % (AUTO) 14 % (2-9); NEUTROPHILS # (AUTO) 4.89 x10^3/uL (1.8-6.8); NEUTROPHILS % (AUTO) 56 % (42-75)
[2018-05-03] MEDS: LORazepam 2 MG/ML, 1ML IVPush PRN (05:16)
[2018-05-03] MEDS: LEVOTHYROXINE 50 MCG TABLET PO SCH (05:16)
[2018-05-03 09:11] VITALS: BP 118/63
[2018-05-03] MEDS: CEFTRIAXONE 2 GM in SODIUM CHLORIDE 0.9% 50 ML IV SCH (09:32)
[2018-05-03] MEDS: VALPROIC ACID 250 MG CAPSULE PO SCH ×2 (09:32→19:40)
[2018-05-03] MEDS: PENTOXIFYLLINE 400 MG TABLET.ER PO SCH (09:33)
[2018-05-03] MEDS: METOPROLOL TARTRATE 50 MG TABLET PO SCH ×2 (09:33→19:40)
[2018-05-03] MEDS: ASPIRIN 81 MG TABLET EC PO SCH (09:33)
[2018-05-03] MEDS: FONDAPARINUX 2.5 MG/0.5 ML SQ SCH (09:33)
[2018-05-03] MEDS: PANTOPROZOLE 40MG TABLET PO SCH (09:33)
[2018-05-03] MEDS: AMLODIPINE 5 MG TABLET PO SCH (09:33)
[2018-05-03] MEDS: SODIUM CHLORIDE 0.9% 1,000 ML IV SCH (11:19)
[2018-05-03 13:20] VITALS: BP 149/77
[2018-05-03 19:39] VITALS: BP 158/75
[2018-05-03] MEDS: ZONISAMIDE 50 MG CAPSULE PO SCH (19:40)
[2018-05-03 21:20] LABS: CLOSTRIDIUM DIFFICILE ANTIGEN NEGATIVE; CLOSTRIDIUM DIFFICILE TOXIN NEGATIVE (Negative)
[2018-05-03] MEDS: DIPHENOXYLATE/ATROPINE TABLET PO PRN (22:32)
[2018-05-04] MEDS: LORazepam 2 MG/ML, 1ML IVPush PRN (00:15)
[2018-05-04 03:33] VITALS: BP 158/76
[2018-05-04] MEDS: SODIUM CHLORIDE 0.9% 1,000 ML IV SCH ×2 (06:06→20:58)
[2018-05-04] MEDS: LEVOTHYROXINE 50 MCG TABLET PO SCH (06:06)
[2018-05-04] MEDS: ACETAMINOPHEN 325 MG TABLET PO PRN (06:07)
[2018-05-04 09:01] VITALS: BP 145/78
[2018-05-04] MEDS: CEFTRIAXONE 2 GM in SODIUM CHLORIDE 0.9% 50 ML IV SCH (09:22)
[2018-05-04] MEDS: FONDAPARINUX 2.5 MG/0.5 ML SQ SCH (09:22)
[2018-05-04] MEDS: VALPROIC ACID 250 MG CAPSULE PO SCH ×2 (09:22→20:57)
[2018-05-04] MEDS: PANTOPROZOLE 40MG TABLET PO SCH (09:22)
[2018-05-04] MEDS: ASPIRIN 81 MG TABLET EC PO SCH (09:22)
[2018-05-04] MEDS: PENTOXIFYLLINE 400 MG TABLET.ER PO SCH (09:22)
[2018-05-04] MEDS: METOPROLOL TARTRATE 50 MG TABLET PO SCH ×2 (09:27→20:58)
[2018-05-04] MEDS: AMLODIPINE 5 MG TABLET PO SCH (09:28)
[2018-05-04 14:00] VITALS: BP 105/67
[2018-05-04 14:34] VITALS: BP 166/110
[2018-05-04 20:00] VITALS: BP 124/61
[2018-05-04] MEDS: DIPHENOXYLATE/ATROPINE TABLET PO PRN (20:57)
[2018-05-04] MEDS: ZONISAMIDE 50 MG CAPSULE PO SCH (20:58)
[2018-05-05 03:34] LABS: MEAN CORPUSCULAR HEMOGLOBIN 33.9 pg (27.0-34.8); MEAN CORPUSCULAR HGB CONC 34.1 g/dL (32.4-35.8); MEAN CORPUSCULAR VOLUME 99.4 fL (80-100); RED BLOOD COUNT 3.16 x10^6/uL (3.82-5.3); RED CELL DISTRIBUTION WIDTH 18.5 % (9.6-15.2)
[2018-05-05 03:41] LABS: ANION GAP 10 mmol/L (5-15); CALCIUM 8.3 mg/dL (8.5-10.1); CHLORIDE 115 mmol/L (98-107); CREATININE 1.23 mg/dL (0.55-1.02)
[2018-05-05 03:46] LABS: BASOPHILS # (AUTO) 0.01 x10^3/uL (0-0.1); BASOPHILS % (AUTO) 0 % (0-1); EOSINOPHILS # (AUTO) 0.45 x10^3/uL (0-0.4); EOSINOPHILS % (AUTO) 6 % (1-7); LYMPHOCYTES % (AUTO) 25 % (22-44); MD SCAN; MEAN PLATELET VOLUME 6.9 fL (7.4-10.4); MONOCYTES # (AUTO) 0.91 x10^3/uL (0.2-0.8); MONOCYTES % (AUTO) 13 % (2-9); NEUTROPHILS # (AUTO) 4.14 x10^3/uL (1.8-6.8); NEUTROPHILS % (AUTO) 57 % (42-75); PLATELET COUNT 135 x10^3/uL (130-400)
[2018-05-05] MEDS: LEVOTHYROXINE 50 MCG TABLET PO SCH (06:06)
[2018-05-05 06:55] VITALS: BP 131/76
[2018-05-05] MEDS: DIPHENOXYLATE/ATROPINE TABLET PO PRN ×2 (08:15→21:07)
[2018-05-05] MEDS: VALPROIC ACID 250 MG CAPSULE PO SCH ×2 (08:15→21:08)
[2018-05-05] MEDS: CEFTRIAXONE 2 GM in SODIUM CHLORIDE 0.9% 50 ML IV SCH (08:15)
[2018-05-05] MEDS: PENTOXIFYLLINE 400 MG TABLET.ER PO SCH (08:16)
[2018-05-05] MEDS: METOPROLOL TARTRATE 50 MG TABLET PO SCH ×2 (08:16→21:07)
[2018-05-05] MEDS: LORazepam 2 MG/ML, 1ML IVPush PRN ×3 (08:16→21:09)
[2018-05-05] MEDS: AMLODIPINE 5 MG TABLET PO SCH (08:16)
[2018-05-05] MEDS: ASPIRIN 81 MG TABLET EC PO SCH (08:16)
[2018-05-05] MEDS: PANTOPROZOLE 40MG TABLET PO SCH (08:16)
[2018-05-05] MEDS: SODIUM CHLORIDE 0.9% 1,000 ML IV SCH (08:17)
[2018-05-05] MEDS: FONDAPARINUX 2.5 MG/0.5 ML SQ SCH (08:22)
[2018-05-05 12:35] VITALS: BP 130/74
[2018-05-05] MEDS: ZONISAMIDE 50 MG CAPSULE PO SCH (21:08)
[2018-05-05 21:31] VITALS: BP 122/69
[2018-05-06] MEDS: DIPHENOXYLATE/ATROPINE TABLET PO PRN (05:40)
[2018-05-06] MEDS: LEVOTHYROXINE 50 MCG TABLET PO SCH (05:41)
[2018-05-06 05:55] VITALS: BP 124/70
[2018-05-06 07:07] VITALS: BP 124/77
[2018-05-06] MEDS: PANTOPROZOLE 40MG TABLET PO SCH (08:42)
[2018-05-06] MEDS: VALPROIC ACID 250 MG CAPSULE PO SCH ×2 (08:43→19:56)
[2018-05-06] MEDS: ASPIRIN 81 MG TABLET EC PO SCH (08:43)
[2018-05-06] MEDS: AMLODIPINE 5 MG TABLET PO SCH (08:43)
[2018-05-06] MEDS: PENTOXIFYLLINE 400 MG TABLET.ER PO SCH (08:43)
[2018-05-06] MEDS: CEFTRIAXONE 2 GM in SODIUM CHLORIDE 0.9% 50 ML IV SCH (08:43)
[2018-05-06] MEDS: METOPROLOL TARTRATE 50 MG TABLET PO SCH ×2 (08:43→19:56)
[2018-05-06] MEDS: FONDAPARINUX 2.5 MG/0.5 ML SQ SCH (08:44)
[2018-05-06] MEDS: SODIUM CHLORIDE 0.9% 1,000 ML IV SCH (11:55)
[2018-05-06 12:41] VITALS: BP 132/64
[2018-05-06] MEDS: LORazepam 2 MG/ML, 1ML IVPush PRN (18:33)
[2018-05-06 19:50] VITALS: BP 115/71
[2018-05-06] MEDS: ZONISAMIDE 50 MG CAPSULE PO SCH (19:56)
[2018-05-07 01:18] VITALS: BP 110/69
[2018-05-07] MEDS: LORazepam 2 MG/ML, 1ML IVPush PRN (02:31)
[2018-05-07] MEDS: LEVOTHYROXINE 50 MCG TABLET PO SCH (05:55)
[2018-05-07 06:53] VITALS: BP 121/61
[2018-05-07] MEDS: SODIUM CHLORIDE 0.9% 1,000 ML IV SCH (09:03)
[2018-05-07] MEDS: VALPROIC ACID 250 MG CAPSULE PO SCH ×2 (09:03→20:27)
[2018-05-07] MEDS: METOPROLOL TARTRATE 50 MG TABLET PO SCH ×2 (09:04→20:27)
[2018-05-07] MEDS: CEFTRIAXONE 2 GM in SODIUM CHLORIDE 0.9% 50 ML IV SCH (09:04)
[2018-05-07] MEDS: AMLODIPINE 5 MG TABLET PO SCH (09:04)
[2018-05-07] MEDS: PANTOPROZOLE 40MG TABLET PO SCH (09:05)
[2018-05-07] MEDS: ASPIRIN 81 MG TABLET EC PO SCH (09:05)
[2018-05-07] MEDS: FONDAPARINUX 2.5 MG/0.5 ML SQ SCH (09:05)
[2018-05-07] MEDS: PENTOXIFYLLINE 400 MG TABLET.ER PO SCH (09:06)
[2018-05-07 12:14] VITALS: BP 105/63
[2018-05-07 19:04] VITALS: BP 113/69
[2018-05-07] MEDS: ZONISAMIDE 50 MG CAPSULE PO SCH (20:27)
[2018-05-08 00:45] VITALS: BP 118/66
[2018-05-08] MEDS: LORazepam 2 MG/ML, 1ML IVPush PRN (02:54)
[2018-05-08 05:21] LABS: ANION GAP 12 mmol/L (5-15); CALCIUM 8.5 mg/dL (8.5-10.1); CHLORIDE 116 mmol/L (98-107)
[2018-05-08 05:25] LABS: CREATININE 1.28 mg/dL (0.55-1.02)
[2018-05-08] MEDS: LEVOTHYROXINE 50 MCG TABLET PO SCH (06:00)
[2018-05-08 06:40] LABS: BASOPHILS # (AUTO) 0.01 x10^3/uL (0-0.1); BASOPHILS % (AUTO) 0 % (0-1); EOSINOPHILS # (AUTO) 0.38 x10^3/uL (0-0.4); EOSINOPHILS % (AUTO) 4 % (1-7); LYMPHOCYTES % (AUTO) 26 % (22-44); MD SCAN; MEAN CORPUSCULAR HGB CONC 34.1 g/dL (32.4-35.8); MEAN CORPUSCULAR VOLUME 99.8 fL (80-100); MEAN PLATELET VOLUME 6.2 fL (7.4-10.4); MONOCYTES # (AUTO) 0.69 x10^3/uL (0.2-0.8); MONOCYTES % (AUTO) 7 % (2-9); NEUTROPHILS # (AUTO) 6.21 x10^3/uL (1.8-6.8); NEUTROPHILS % (AUTO) 64 % (42-75); PLATELET COUNT 196 x10^3/uL (130-400); RED BLOOD COUNT 3.12 x10^6/uL (3.82-5.3); RED CELL DISTRIBUTION WIDTH 19.3 % (9.6-15.2)
[2018-05-08] MEDS: AMLODIPINE 5 MG TABLET PO SCH (07:51)
[2018-05-08] MEDS: PENTOXIFYLLINE 400 MG TABLET.ER PO SCH (07:51)
[2018-05-08] MEDS: ASPIRIN 81 MG TABLET EC PO SCH (07:51)
[2018-05-08] MEDS: VALPROIC ACID 250 MG CAPSULE PO SCH ×2 (07:51→21:11)
[2018-05-08] MEDS: PANTOPROZOLE 40MG TABLET PO SCH (07:52)
[2018-05-08] MEDS: FONDAPARINUX 2.5 MG/0.5 ML SQ SCH (07:52)
[2018-05-08] MEDS: METOPROLOL TARTRATE 50 MG TABLET PO SCH ×2 (07:52→21:11)
[2018-05-08 08:03] VITALS: BP 142/83
[2018-05-08] MEDS: CEFTRIAXONE 2 GM in SODIUM CHLORIDE 0.9% 50 ML IV SCH (09:24)
[2018-05-08 16:53] VITALS: BP 103/53
[2018-05-08] MEDS: ACETAMINOPHEN 325 MG TABLET PO PRN (16:56)
[2018-05-08 20:09] VITALS: BP 116/65
[2018-05-08] MEDS: ZONISAMIDE 50 MG CAPSULE PO SCH (21:11)
[2018-05-09] MEDS: ACETAMINOPHEN 325 MG TABLET PO PRN (02:54)
[2018-05-09 03:19] VITALS: BP 153/69
[2018-05-09 04:55] LABS: MEAN CORPUSCULAR HGB CONC 33.8 g/dL (32.4-35.8); MEAN CORPUSCULAR VOLUME 100.5 fL (80-100); MEAN PLATELET VOLUME 7.1 fL (7.4-10.4); PLATELET COUNT 194 x10^3/uL (130-400); RED BLOOD COUNT 3.27 x10^6/uL (3.82-5.3)
[2018-05-09 05:01] LABS: ANION GAP 7 mmol/L (5-15); CALCIUM 8.8 mg/dL (8.5-10.1); CHLORIDE 120 mmol/L (98-107); CREATININE 1.39 mg/dL (0.55-1.02)
[2018-05-09 05:31] LABS: MD YES
[2018-05-09 05:33] LABS: <PLATELET ESTIMATE> ADEQUATE; <PLT MORPHOLOGY> NORMAL PLT MORPH; <RBC MORPHOLOGY> NORMAL; BAND#(MANUAL) 0.22 x10^3/uL; BANDS%(MANUAL) 2 % (0-7); EOS#(MANUAL) 0.22 x10^3/uL (0.0-0.4); EOS% (MANUAL) 2 % (1-7); LYMPH#(MANUAL) 2.89 x10^3/uL (1-3.4); LYMPHS% (MANUAL) 26 % (22-44); METAMYELOCYTES# (MANUAL) 0.11 x10^3/uL (0-0); METAMYELOCYTES% (MANUAL) 1 % (0-1); MONOS#(MANUAL) 0.22 x10^3/uL (0.3-2.7); MONOS% (MANUAL) 2 % (2-9); SEG#(MANUAL) 7.44 x10^3/uL (1.8-6.8); SEGS% (MANUAL) 67 % (42-75)
[2018-05-09] MEDS: LEVOTHYROXINE 50 MCG TABLET PO SCH (06:00)
[2018-05-09 07:49] VITALS: BP 127/65
[2018-05-09] MEDS: PENTOXIFYLLINE 400 MG TABLET.ER PO SCH (08:46)
[2018-05-09] MEDS: VALPROIC ACID 250 MG CAPSULE PO SCH (08:47)
[2018-05-09] MEDS: AMLODIPINE 5 MG TABLET PO SCH (08:50)
[2018-05-09] MEDS: PANTOPROZOLE 40MG TABLET PO SCH (08:51)
[2018-05-09] MEDS: ASPIRIN 81 MG TABLET EC PO SCH (08:52)
[2018-05-09] MEDS: CEFTRIAXONE 2 GM in SODIUM CHLORIDE 0.9% 50 ML IV SCH (08:53)
[2018-05-09] MEDS: METOPROLOL TARTRATE 50 MG TABLET PO SCH (08:53)
[2018-05-09] MEDS: FONDAPARINUX 2.5 MG/0.5 ML SQ SCH (09:00)
[2018-05-09] MEDS ORDERED: FOND2.5D3 SQ (10:46)
[2018-05-09] MEDS ORDERED: LORA2VIA6 IVPush (10:46)
[2018-05-09] MEDS ORDERED: ONDA4VIA8 IVPush (10:46)
[2018-05-09] MEDS ORDERED: ACET325T14 PO (10:46)
[2018-05-09] MEDS ORDERED: ONDA4TAB13 PO (10:46)
[2018-05-09 13:12] VITALS: BP 137/69
== END 2018-05-09 15:23 | DRG 871 ==
LOC: ED 13:54 → EDIP 13:55 → ED 13:59 → 3NE 15:22
PROVIDERS: ADMIT Internal Medicine; ATTEND Internal Medicine
PROC: 0T9B70Z Drainage of Bladder with Drainage Device, Via Natural or Artificial Opening (ICD-10-PCS; principal; 2018-04-30)
PROC: 02HV33Z Insertion of Infusion Device into Superior Vena Cava, Percutaneous Approach (ICD-10-PCS; 2018-04-30)
PROC: B548ZZA Ultrasonography of Superior Vena Cava, Guidance (ICD-10-PCS; 2018-04-30)
DX: A41.9 Sepsis, unspecified organism (principal); G93.41 Metabolic encephalopathy; E43 Unspecified severe protein-calorie malnutrition; J98.11 Atelectasis; Z68.1 Body mass index [BMI] 19.9 or less, adult; I13.0 Hypertensive heart and chronic kidney disease with heart failure and stage 1 through stage 4 chronic kidney disease, or unspecified chronic kidney disease; N30.00 Acute cystitis without hematuria; G40.209 Localization-related (focal) (partial) symptomatic epilepsy and epileptic syndromes with complex partial seizures, not intractable, without status epilepticus; N17.9 Acute kidney failure, unspecified; J44.9 Chronic obstructive pulmonary disease, unspecified; D75.82 Heparin induced thrombocytopenia (HIT); D53.9 Nutritional anemia, unspecified; I25.10 Atherosclerotic heart disease of native coronary artery without angina pectoris; E03.9 Hypothyroidism, unspecified; G30.9 Alzheimer's disease, unspecified; I25.5 Ischemic cardiomyopathy; I50.9 Heart failure, unspecified; J32.1 Chronic frontal sinusitis; J01.90 Acute sinusitis, unspecified; S01.81XA Laceration without foreign body of other part of head, initial encounter; W06.XXXA Fall from bed, initial encounter; N18.9 Chronic kidney disease, unspecified; I44.0 Atrioventricular block, first degree; F29 Unspecified psychosis not due to a substance or known physiological condition; F02.80 Dementia in other diseases classified elsewhere, unspecified severity, without behavioral disturbance, psychotic disturbance, mood disturbance, and anxiety; B96.89 Other specified bacterial agents as the cause of diseases classified elsewhere; B96.4 Proteus (mirabilis) (morganii) as the cause of diseases classified elsewhere; Z88.5 Allergy status to narcotic agent; Z88.0 Allergy status to penicillin; Z87.891 Personal history of nicotine dependence; Z95.5 Presence of coronary angioplasty implant and graft; Z95.0 Presence of cardiac pacemaker; Z90.710 Acquired absence of both cervix and uterus; Z88.8 Allergy status to other drugs, medicaments and biological substances; Y93.89 Activity, other specified; Y92.89 Other specified places as the place of occurrence of the external cause; Y99.8 Other external cause status; Z86.73 Personal history of transient ischemic attack (TIA), and cerebral infarction without residual deficits
CPT/HCPCS: 36415; 36569; 70450; 71045; 76937; 77001; 80048; 80053; 80164; 81001; 83605; 83735; 83880; 84100; 84145; 84439; 84443; 85025; 87040; 87077; 87086; 87186; 87324; 93005; 99285; G0378; J0696; C1751; J1652; J2060; J7030

== ENCOUNTER 2018-05-19 18:58 | Inpatient (IN) | payer MEDICARE, OTHER ==
[~2018-05-19] VITALS: Ht 165.1 cm; Wt 56.8 kg
[~2018-05-19 18:58] MED LIST changes: +ALIR75PE INJ; +AMLO5TAB4 PO; +DOXE4VIA PO; +FOND2.5D3 SQ; +LORA2VIA6 IVPush; +NYST1000 PO; +ONDA4VIA8 IVPush; +PANT40TA3 PO
[2018-05-19 20:10] LABS: ANION GAP 5 mmol/L (5-15); CALCIUM 8.8 mg/dL (8.5-10.1); CHLORIDE 114 mmol/L (98-107); CREATININE 1.96 mg/dL (0.55-1.02); CULTURE INDICATED? YES; MICROSCOPIC INDICATED
[2018-05-19 20:11] LABS: ALBUMIN 2.9 g/dL (3.4-5.0)
[2018-05-19 20:40] LABS: BASOPHILS # (AUTO) 0.06 x10^3/uL (0-0.1); BASOPHILS % (AUTO) 1 % (0-1); EOSINOPHILS # (AUTO) 0.31 x10^3/uL (0-0.4); EOSINOPHILS % (AUTO) 4 % (1-7); LYMPHOCYTES # (AUTO) 2.53 x10^3/uL (1-3.4); LYMPHOCYTES % (AUTO) 29 % (22-44); MD NO; MEAN CORPUSCULAR HEMOGLOBIN 34.6 pg (27.0-34.8); MEAN CORPUSCULAR HGB CONC 33.7 g/dL (32.4-35.8); MEAN CORPUSCULAR VOLUME 102.6 fL (80-100); MEAN PLATELET VOLUME 6.8 fL (7.4-10.4); MONOCYTES # (AUTO) 0.92 x10^3/uL (0.2-0.8); MONOCYTES % (AUTO) 11 % (2-9); NEUTROPHILS # (AUTO) 4.87 x10^3/uL (1.8-6.8); NEUTROPHILS % (AUTO) 56 % (42-75); PLATELET COUNT 199 x10^3/uL (130-400); RED BLOOD COUNT 3.21 x10^6/uL (3.82-5.3); RED CELL DISTRIBUTION WIDTH 19.9 % (9.6-15.2)
[2018-05-19] MEDS ORDERED: SODIUM CHLORIDE FLUSH 10ML SYR IVF ONE (21:00)
[2018-05-19] MEDS ORDERED: SODIUM CHLORIDE 0.9% 1,000ML IVBOLUS ONE (21:00)
[2018-05-19] MEDS ORDERED: SODIUM POLY SULFONATE UDC 15 GM/60 ML ONE (21:20)
[2018-05-19] MEDS ORDERED: SODIUM POLY SULFONATE UDC 15 GM/60 ML PO ONE (21:30)
[2018-05-19] MEDS ORDERED: ONDANSETRON 2MG/ML, 2ML IVPush PRN ×2 (22:00→23:00)
[2018-05-19] MEDS ORDERED: TEMPLATE NON-FORMULARY MED. (Ondansetron** (Ondansetron Odt**) 4 MG) PO PRN (22:00)
[2018-05-19 23:00] VITALS: BP 121/69
[2018-05-19] MEDS ORDERED: hydrALAzine 20 MG/ML, 1ML IVPush PRN (23:00)
[2018-05-19] MEDS ORDERED: LABETALOL 5MG/ML, 20ML IVPush PRN (23:00)
[2018-05-19] MEDS ORDERED: ONDANSETRON ODT 4 MG PO PRN (23:00)
[2018-05-19] MEDS: SODIUM CHLORIDE 0.9% 1,000 ML IV SCH (23:26)
[2018-05-20 01:08] VITALS: BP 136/83
[2018-05-20 01:50] LABS: CLOSTRIDIUM DIFFICILE ANTIGEN NEGATIVE; CLOSTRIDIUM DIFFICILE TOXIN NEGATIVE (Negative)
[2018-05-20 03:46] VITALS: BP_SYST 129; BP_SYST 164; BP_DIAS 69; BP_DIAS 77
[2018-05-20] MEDS ORDERED: LEVOTHYROXINE 100 MCG TABLET PO SCH (06:00)
[2018-05-20 06:56] LABS: ANION GAP 9 mmol/L (5-15); CALCIUM 8.7 mg/dL (8.5-10.1); CHLORIDE 120 mmol/L (98-107); CREATININE 1.45 mg/dL (0.55-1.02)
[2018-05-20 07:23] VITALS: BP 134/67
[2018-05-20] MEDS: ASPIRIN 81 MG TABLET EC PO SCH (08:46)
[2018-05-20] MEDS: AMLODIPINE 5 MG TABLET PO SCH (08:46)
[2018-05-20] MEDS: PANTOPROZOLE 40MG TABLET PO SCH (08:46)
[2018-05-20] MEDS: PENTOXIFYLLINE 400 MG TABLET.ER PO SCH (08:46)
[2018-05-20] MEDS: VALPROIC ACID 250 MG CAPSULE PO SCH ×2 (08:46→21:34)
[2018-05-20] MEDS: METOPROLOL TARTRATE 50 MG TABLET PO SCH ×2 (08:46→21:34)
[2018-05-20 09:50] VITALS: BP 131/69
[2018-05-20] MEDS: SODIUM CHLORIDE 0.9% 1,000 ML IV SCH ×2 (11:20→21:33)
[2018-05-20 15:52] VITALS: BP_SYST 118; BP_SYST 129; BP_DIAS 68; BP_DIAS 81
[2018-05-20 18:22] LABS: BASOPHILS # (AUTO) 0.05 x10^3/uL (0-0.1); BASOPHILS % (AUTO) 0 % (0-1); EOSINOPHILS # (AUTO) 0.32 x10^3/uL (0-0.4); EOSINOPHILS % (AUTO) 3 % (1-7); LYMPHOCYTES # (AUTO) 2.28 x10^3/uL (1-3.4); LYMPHOCYTES % (AUTO) 22 % (22-44); MD NO; MEAN CORPUSCULAR HEMOGLOBIN 34.6 pg (27.0-34.8); MEAN CORPUSCULAR HGB CONC 33.7 g/dL (32.4-35.8); MEAN CORPUSCULAR VOLUME 102.6 fL (80-100); MEAN PLATELET VOLUME 6.5 fL (7.4-10.4); MONOCYTES # (AUTO) 1.14 x10^3/uL (0.2-0.8); MONOCYTES % (AUTO) 11 % (2-9); NEUTROPHILS # (AUTO) 6.45 x10^3/uL (1.8-6.8); NEUTROPHILS % (AUTO) 63 % (42-75); PLATELET COUNT 194 x10^3/uL (130-400); RED BLOOD COUNT 3.45 x10^6/uL (3.82-5.3); RED CELL DISTRIBUTION WIDTH 19.7 % (9.6-15.2)
[2018-05-20 18:28] LABS: ANION GAP 9 mmol/L (5-15); CALCIUM 7.7 mg/dL (8.5-10.1); CHLORIDE 117 mmol/L (98-107); CREATININE 1.33 mg/dL (0.55-1.02); INTERNATIONAL NORMALIZED RATIO 1.04 (0.93-1.1); PROTHROMBIN TIME 10.7 Seconds (9.6-11.5)
[2018-05-20 20:24] VITALS: BP 161/79
[2018-05-20] MEDS: ZONISAMIDE 50 MG CAPSULE PO SCH (21:34)
[2018-05-21 02:00] VITALS: BP_SYST 143; BP_SYST 146; BP_DIAS 69; BP_DIAS 75
[2018-05-21] MEDS: LORazepam 2 MG/ML, 1ML IVPush PRN ×2 (02:24→09:27)
[2018-05-21] MEDS: SODIUM CHLORIDE 0.9% 1,000 ML IV SCH (06:10)
[2018-05-21] MEDS: LEVOTHYROXINE 125 MCG TABLET PO SCH (06:13)
[2018-05-21 06:34] VITALS: BP 139/76
[2018-05-21] MEDS: METOPROLOL TARTRATE 50 MG TABLET PO SCH ×2 (09:00→22:29)
[2018-05-21] MEDS: ASPIRIN 81 MG TABLET EC PO SCH (09:00)
[2018-05-21] MEDS: VALPROIC ACID 250 MG CAPSULE PO SCH ×2 (09:22→22:28)
[2018-05-21] MEDS: PENTOXIFYLLINE 400 MG TABLET.ER PO SCH (09:24)
[2018-05-21] MEDS: PANTOPROZOLE 40MG TABLET PO SCH (09:28)
[2018-05-21] MEDS: AMLODIPINE 5 MG TABLET PO SCH (09:28)
[2018-05-21 09:30] LABS: BASOPHILS # (AUTO) 0.03 x10^3/uL (0-0.1); BASOPHILS % (AUTO) 0 % (0-1); EOSINOPHILS # (AUTO) 0.27 x10^3/uL (0-0.4); EOSINOPHILS % (AUTO) 3 % (1-7); LYMPHOCYTES # (AUTO) 2.57 x10^3/uL (1-3.4); LYMPHOCYTES % (AUTO) 25 % (22-44); MD NO; MEAN CORPUSCULAR HGB CONC 33.4 g/dL (32.4-35.8); MEAN CORPUSCULAR VOLUME 101.9 fL (80-100); MEAN PLATELET VOLUME 6.6 fL (7.4-10.4); MONOCYTES # (AUTO) 1.14 x10^3/uL (0.2-0.8); MONOCYTES % (AUTO) 11 % (2-9); NEUTROPHILS # (AUTO) 6.11 x10^3/uL (1.8-6.8); NEUTROPHILS % (AUTO) 60 % (42-75); PLATELET COUNT 192 x10^3/uL (130-400); RED BLOOD COUNT 3.06 x10^6/uL (3.82-5.3)
[2018-05-21 09:43] LABS: ANION GAP 8 mmol/L (5-15); CALCIUM 8.6 mg/dL (8.5-10.1); CHLORIDE 114 mmol/L (98-107); CREATININE 1.09 mg/dL (0.55-1.02)
[2018-05-21 12:04] VITALS: BP_SYST 123; BP_SYST 16; BP_DIAS 57; BP_DIAS 63
[2018-05-21] MEDS: DEXTROSE 5% 1,000 ML IV SCH (14:50)
[2018-05-21] MEDS ORDERED: DEXTROSE 4 GM TAB.CHEW PO PRN (16:00)
[2018-05-21] MEDS ORDERED: DEXTROSE 50%, 50ML SYRINGE IVPush PRN (16:00)
[2018-05-21] MEDS ORDERED: GLUCAGON 1 MG IM PRN (16:00)
[2018-05-21 20:00] VITALS: BP 128/68
[2018-05-21] MEDS: SODIUM CHLORIDE FLUSH 10ML SYR IVF SCH (21:00)
[2018-05-21] MEDS: ATORVASTATIN 20 MG TABLET PO SCH (22:29)
[2018-05-21] MEDS: ZONISAMIDE 50 MG CAPSULE PO SCH (22:29)
[2018-05-22 01:34] VITALS: BP 149/64
[2018-05-22] MEDS: LEVOTHYROXINE 125 MCG TABLET PO SCH (04:47)
[2018-05-22 05:23] LABS: ALANINE AMINOTRANSFERASE 18 U/L (12-78); ALBUMIN 2.3 g/dL (3.4-5.0); ANION GAP 7 mmol/L (5-15); CALCIUM 7.8 mg/dL (8.5-10.1); CHLORIDE 112 mmol/L (98-107); CREATININE 1.14 mg/dL (0.55-1.02)
[2018-05-22 05:50] LABS: ALKALINE PHOSPHATASE 88 U/L (45-117); BILIRUBIN,TOTAL 0.4 mg/dL (0.2-1.0); TOTAL PROTEIN 7.3 g/dL (6.4-8.2)
[2018-05-22 05:54] LABS: FOLATE LEVEL 6.6 ng/mL (3.1-17.5)
[2018-05-22 08:00] VITALS: BP 144/69
[2018-05-22] MEDS: SODIUM CHLORIDE FLUSH 10ML SYR IVF SCH ×2 (09:00→20:49)
[2018-05-22] MEDS: PENTOXIFYLLINE 400 MG TABLET.ER PO SCH (09:45)
[2018-05-22] MEDS: METOPROLOL TARTRATE 50 MG TABLET PO SCH ×2 (09:45→20:49)
[2018-05-22] MEDS: PANTOPROZOLE 40MG TABLET PO SCH (09:45)
[2018-05-22] MEDS: VALPROIC ACID 250 MG CAPSULE PO SCH ×2 (09:45→20:49)
[2018-05-22] MEDS: ASPIRIN 81 MG TABLET EC PO SCH (09:45)
[2018-05-22] MEDS: AMLODIPINE 5 MG TABLET PO SCH (09:45)
[2018-05-22] MEDS: DEXTROSE 5% 1,000 ML IV SCH (09:46)
[2018-05-22 13:07] VITALS: BP 128/61
[2018-05-22 13:41] LABS: TROPONIN I < 0.015 ng/mL (0.000-0.045)
[2018-05-22 14:22] LABS: HEMOGLOBIN A1C 4.3 % (4.2-6.3)
[2018-05-22] MEDS ORDERED: COSYNTROPIN 0.25 MG IM ONE (15:00)
[2018-05-22] MEDS: FONDAPARINUX 2.5 MG/0.5 ML SQ SCH (15:15)
[2018-05-22 20:00] VITALS: BP 117/62
[2018-05-22] MEDS: ZONISAMIDE 50 MG CAPSULE PO SCH (20:48)
[2018-05-22] MEDS: ATORVASTATIN 20 MG TABLET PO SCH (20:48)
[2018-05-22] MEDS ORDERED: OMNIPAQUE 350 MG/ML, 100ML BOTTLE ONE (23:25)
[2018-05-23 02:00] VITALS: BP 149/68
[2018-05-23 05:28] LABS: BASOPHILS # (AUTO) 0.04 x10^3/uL (0-0.1); BASOPHILS % (AUTO) 1 % (0-1); EOSINOPHILS % (AUTO) 3 % (1-7); LYMPHOCYTES # (AUTO) 2.49 x10^3/uL (1-3.4); LYMPHOCYTES % (AUTO) 32 % (22-44); MD NO; MEAN CORPUSCULAR HEMOGLOBIN 35.2 pg (27.0-34.8); MEAN CORPUSCULAR HGB CONC 34.6 g/dL (32.4-35.8); MEAN CORPUSCULAR VOLUME 101.6 fL (80-100); MEAN PLATELET VOLUME 6.6 fL (7.4-10.4); MONOCYTES # (AUTO) 0.88 x10^3/uL (0.2-0.8); MONOCYTES % (AUTO) 11 % (2-9); NEUTROPHILS # (AUTO) 4.13 x10^3/uL (1.8-6.8); NEUTROPHILS % (AUTO) 53 % (42-75); PLATELET COUNT 178 x10^3/uL (130-400); RED BLOOD COUNT 3.21 x10^6/uL (3.82-5.3); RED CELL DISTRIBUTION WIDTH 17.9 % (9.6-15.2)
[2018-05-23] MEDS: LEVOTHYROXINE 125 MCG TABLET PO SCH (05:30)
[2018-05-23 05:35] LABS: ALBUMIN 2.5 g/dL (3.4-5.0); ANION GAP 9 mmol/L (5-15); CALCIUM 8.4 mg/dL (8.5-10.1); CHLORIDE 109 mmol/L (98-107)
[2018-05-23 05:39] LABS: ALANINE AMINOTRANSFERASE 19 U/L (12-78); ALKALINE PHOSPHATASE 88 U/L (45-117); BILIRUBIN,TOTAL 0.4 mg/dL (0.2-1.0); CREATININE 1.09 mg/dL (0.55-1.02); TOTAL PROTEIN 7.5 g/dL (6.4-8.2)
[2018-05-23 06:52] VITALS: BP 162/76
[2018-05-23] MEDS: VALPROIC ACID 250 MG CAPSULE PO SCH ×2 (08:53→21:06)
[2018-05-23] MEDS: METOPROLOL TARTRATE 50 MG TABLET PO SCH ×2 (08:53→21:05)
[2018-05-23] MEDS: PENTOXIFYLLINE 400 MG TABLET.ER PO SCH (08:53)
[2018-05-23] MEDS: PANTOPROZOLE 40MG TABLET PO SCH (08:53)
[2018-05-23] MEDS: ASPIRIN 81 MG TABLET EC PO SCH (08:54)
[2018-05-23] MEDS: AMOXICILLIN/CLAV 875-125MG TABLET PO SCH ×2 (08:54→21:00)
[2018-05-23] MEDS: AMLODIPINE 5 MG TABLET PO SCH (08:54)
[2018-05-23] MEDS: SODIUM CHLORIDE FLUSH 10ML SYR IVF SCH ×2 (08:54→21:07)
[2018-05-23] MEDS: FONDAPARINUX 2.5 MG/0.5 ML SQ SCH (08:55)
[2018-05-23 12:46] VITALS: BP 94/58
[2018-05-23] MEDS: ACETAMINOPHEN 325 MG TABLET PO PRN (18:33)
[2018-05-23 18:52] VITALS: BP 121/63
[2018-05-23] MEDS: ATORVASTATIN 20 MG TABLET PO SCH (21:05)
[2018-05-23] MEDS: ZONISAMIDE 50 MG CAPSULE PO SCH (21:06)
[2018-05-24 01:21] VITALS: BP 137/64
[2018-05-24 05:30] LABS: BASOPHILS # (AUTO) 0.03 x10^3/uL (0-0.1); BASOPHILS % (AUTO) 1 % (0-1); EOSINOPHILS # (AUTO) 0.44 x10^3/uL (0-0.4); EOSINOPHILS % (AUTO) 6 % (1-7); LYMPHOCYTES # (AUTO) 2.58 x10^3/uL (1-3.4); LYMPHOCYTES % (AUTO) 36 % (22-44); MD NO; MEAN CORPUSCULAR HEMOGLOBIN 34.7 pg (27.0-34.8); MEAN CORPUSCULAR VOLUME 102.1 fL (80-100); MEAN PLATELET VOLUME 6.8 fL (7.4-10.4); MONOCYTES # (AUTO) 0.82 x10^3/uL (0.2-0.8); MONOCYTES % (AUTO) 11 % (2-9); NEUTROPHILS # (AUTO) 3.34 x10^3/uL (1.8-6.8); NEUTROPHILS % (AUTO) 46 % (42-75); PLATELET COUNT 189 x10^3/uL (130-400); RED BLOOD COUNT 3.12 x10^6/uL (3.82-5.3); RED CELL DISTRIBUTION WIDTH 18.4 % (9.6-15.2)
[2018-05-24] MEDS: LEVOTHYROXINE 125 MCG TABLET PO SCH (05:30)
[2018-05-24 05:37] LABS: ALBUMIN 2.4 g/dL (3.4-5.0); ANION GAP 12 mmol/L (5-15); CALCIUM 8.8 mg/dL (8.5-10.1); CHLORIDE 110 mmol/L (98-107); CREATININE 1.37 mg/dL (0.55-1.02)
[2018-05-24 07:06] VITALS: BP 144/78
[2018-05-24] MEDS: SODIUM CHLORIDE FLUSH 10ML SYR IVF SCH ×2 (09:00→20:26)
[2018-05-24] MEDS: VALPROIC ACID 250 MG CAPSULE PO SCH ×2 (09:40→20:27)
[2018-05-24] MEDS: ASPIRIN 81 MG TABLET EC PO SCH (09:40)
[2018-05-24] MEDS: AMLODIPINE 5 MG TABLET PO SCH (09:40)
[2018-05-24] MEDS: PENTOXIFYLLINE 400 MG TABLET.ER PO SCH (09:40)
[2018-05-24] MEDS: AMOXICILLIN/CLAV 875-125MG TABLET PO SCH ×2 (09:40→20:28)
[2018-05-24] MEDS: PANTOPROZOLE 40MG TABLET PO SCH (09:41)
[2018-05-24] MEDS: METOPROLOL TARTRATE 50 MG TABLET PO SCH ×2 (09:41→20:27)
[2018-05-24] MEDS: FONDAPARINUX 2.5 MG/0.5 ML SQ SCH (09:46)
[2018-05-24] MEDS ORDERED: SODIUM CHLORIDE 0.9% 1,000 ML IV SCH (11:00)
[2018-05-24] MEDS ORDERED: POTASSIUM CHLORIDE 20 MEQ TAB.ER.PRT PO ONE ×2 (11:30→13:00)
[2018-05-24 13:20] VITALS: BP 113/73
[2018-05-24] MEDS: ACETAMINOPHEN 325 MG TABLET PO PRN ×2 (14:55→20:28)
[2018-05-24] MEDS: ATORVASTATIN 20 MG TABLET PO SCH (20:27)
[2018-05-24] MEDS: ZONISAMIDE 50 MG CAPSULE PO SCH (20:27)
[2018-05-24 21:11] VITALS: BP 124/64
[2018-05-25] MEDS: ACETAMINOPHEN 325 MG TABLET PO PRN (00:42)
[2018-05-25 01:39] VITALS: BP 147/74
[2018-05-25 04:19] LABS: BASOPHILS # (AUTO) 0.03 x10^3/uL (0-0.1); BASOPHILS % (AUTO) 0 % (0-1); EOSINOPHILS # (AUTO) 0.52 x10^3/uL (0-0.4); EOSINOPHILS % (AUTO) 4 % (1-7); LYMPHOCYTES # (AUTO) 1.77 x10^3/uL (1-3.4); LYMPHOCYTES % (AUTO) 13 % (22-44); MD NO; MEAN CORPUSCULAR HEMOGLOBIN 34.9 pg (27.0-34.8); MEAN CORPUSCULAR HGB CONC 34.4 g/dL (32.4-35.8); MEAN CORPUSCULAR VOLUME 101.6 fL (80-100); MEAN PLATELET VOLUME 6.7 fL (7.4-10.4); MONOCYTES # (AUTO) 1.34 x10^3/uL (0.2-0.8); MONOCYTES % (AUTO) 10 % (2-9); NEUTROPHILS # (AUTO) 10.43 x10^3/uL (1.8-6.8); NEUTROPHILS % (AUTO) 74 % (42-75); PLATELET COUNT 168 x10^3/uL (130-400); RED BLOOD COUNT 3.22 x10^6/uL (3.82-5.3); RED CELL DISTRIBUTION WIDTH 17.7 % (9.6-15.2)
[2018-05-25 04:29] LABS: ALBUMIN 2.5 g/dL (3.4-5.0); ANION GAP 9 mmol/L (5-15); CALCIUM 8.6 mg/dL (8.5-10.1); CHLORIDE 112 mmol/L (98-107)
[2018-05-25] MEDS: LEVOTHYROXINE 125 MCG TABLET PO SCH (05:33)
[2018-05-25] MEDS: VALPROIC ACID 250 MG CAPSULE PO SCH ×2 (08:42→21:48)
[2018-05-25] MEDS: PANTOPROZOLE 40MG TABLET PO SCH (08:42)
[2018-05-25] MEDS: SODIUM CHLORIDE FLUSH 10ML SYR IVF SCH ×2 (08:42→21:49)
[2018-05-25] MEDS: AMLODIPINE 5 MG TABLET PO SCH (08:43)
[2018-05-25] MEDS: ASPIRIN 81 MG TABLET EC PO SCH (08:43)
[2018-05-25] MEDS: AMOXICILLIN/CLAV 875-125MG TABLET PO SCH ×2 (08:43→21:48)
[2018-05-25] MEDS: PENTOXIFYLLINE 400 MG TABLET.ER PO SCH (08:43)
[2018-05-25] MEDS: METOPROLOL TARTRATE 50 MG TABLET PO SCH ×2 (08:43→21:48)
[2018-05-25 08:44] VITALS: BP 132/69
[2018-05-25] MEDS: FONDAPARINUX 2.5 MG/0.5 ML SQ SCH (09:08)
[2018-05-25 13:11] VITALS: BP 131/74
[2018-05-25] MEDS: ZONISAMIDE 50 MG CAPSULE PO SCH (21:48)
[2018-05-25] MEDS: ATORVASTATIN 20 MG TABLET PO SCH (21:48)
[2018-05-25 21:50] VITALS: BP 130/78
[2018-05-25 22:06] VITALS: BP 130/18
[2018-05-26 03:30] VITALS: BP 121/64
[2018-05-26] MEDS: LEVOTHYROXINE 125 MCG TABLET PO SCH (04:35)
[2018-05-26 04:53] VITALS: BP 121/64
[2018-05-26] MEDS: ACETAMINOPHEN 325 MG TABLET PO PRN ×2 (06:27→19:58)
[2018-05-26 06:38] VITALS: BP 126/75
[2018-05-26 07:04] LABS: BASOPHILS # (AUTO) 0.04 x10^3/uL (0-0.1); BASOPHILS % (AUTO) 0 % (0-1); EOSINOPHILS # (AUTO) 0.57 x10^3/uL (0-0.4); EOSINOPHILS % (AUTO) 6 % (1-7); LYMPHOCYTES # (AUTO) 1.91 x10^3/uL (1-3.4); LYMPHOCYTES % (AUTO) 20 % (22-44); MD NO; MEAN CORPUSCULAR HEMOGLOBIN 33.9 pg (27.0-34.8); MEAN CORPUSCULAR HGB CONC 33.3 g/dL (32.4-35.8); MEAN CORPUSCULAR VOLUME 101.9 fL (80-100); MEAN PLATELET VOLUME 6.9 fL (7.4-10.4); MONOCYTES # (AUTO) 0.82 x10^3/uL (0.2-0.8); MONOCYTES % (AUTO) 8 % (2-9); NEUTROPHILS # (AUTO) 6.42 x10^3/uL (1.8-6.8); NEUTROPHILS % (AUTO) 66 % (42-75); PLATELET COUNT 190 x10^3/uL (130-400); RED BLOOD COUNT 3.38 x10^6/uL (3.82-5.3); RED CELL DISTRIBUTION WIDTH 17.7 % (9.6-15.2)
[2018-05-26 07:08] LABS: ALBUMIN 2.5 g/dL (3.4-5.0); ANION GAP 10 mmol/L (5-15); CALCIUM 9.2 mg/dL (8.5-10.1); CHLORIDE 112 mmol/L (98-107); CREATININE 1.14 mg/dL (0.55-1.02)
[2018-05-26] MEDS ORDERED: POTASSIUM CHLORIDE 20 MEQ TAB.ER.PRT PO ONE ×2 (10:00→13:00)
[2018-05-26] MEDS: METOPROLOL TARTRATE 50 MG TABLET PO SCH ×2 (10:36→19:59)
[2018-05-26] MEDS: VALPROIC ACID 250 MG CAPSULE PO SCH ×2 (10:36→19:59)
[2018-05-26] MEDS: AMOXICILLIN/CLAV 875-125MG TABLET PO SCH ×2 (10:36→19:59)
[2018-05-26] MEDS: ASPIRIN 81 MG TABLET EC PO SCH (10:40)
[2018-05-26] MEDS: PENTOXIFYLLINE 400 MG TABLET.ER PO SCH (10:40)
[2018-05-26] MEDS: PANTOPROZOLE 40MG TABLET PO SCH (10:41)
[2018-05-26] MEDS: AMLODIPINE 5 MG TABLET PO SCH (10:41)
[2018-05-26] MEDS: SODIUM CHLORIDE FLUSH 10ML SYR IVF SCH ×2 (10:43→20:15)
[2018-05-26] MEDS: FONDAPARINUX 2.5 MG/0.5 ML SQ SCH (12:18)
[2018-05-26 14:41] VITALS: BP 120/75
[2018-05-26 19:05] VITALS: BP 129/73
[2018-05-26] MEDS: ZONISAMIDE 50 MG CAPSULE PO SCH (19:58)
[2018-05-26] MEDS: ATORVASTATIN 20 MG TABLET PO SCH (19:59)
[2018-05-27 01:44] VITALS: BP 127/71
[2018-05-27] MEDS: LEVOTHYROXINE 125 MCG TABLET PO SCH (04:52)
[2018-05-27] MEDS: ACETAMINOPHEN 325 MG TABLET PO PRN (04:52)
[2018-05-27 06:13] LABS: BASOPHILS # (AUTO) 0.05 x10^3/uL (0-0.1); BASOPHILS % (AUTO) 1 % (0-1); EOSINOPHILS # (AUTO) 0.63 x10^3/uL (0-0.4); EOSINOPHILS % (AUTO) 7 % (1-7); LYMPHOCYTES # (AUTO) 2.53 x10^3/uL (1-3.4); LYMPHOCYTES % (AUTO) 27 % (22-44); MD NO; MEAN CORPUSCULAR HEMOGLOBIN 34.4 pg (27.0-34.8); MEAN CORPUSCULAR HGB CONC 33.3 g/dL (32.4-35.8); MEAN CORPUSCULAR VOLUME 103.1 fL (80-100); MONOCYTES # (AUTO) 0.88 x10^3/uL (0.2-0.8); MONOCYTES % (AUTO) 9 % (2-9); NEUTROPHILS # (AUTO) 5.34 x10^3/uL (1.8-6.8); NEUTROPHILS % (AUTO) 57 % (42-75); PLATELET COUNT 204 x10^3/uL (130-400); RED BLOOD COUNT 3.69 x10^6/uL (3.82-5.3); RED CELL DISTRIBUTION WIDTH 17.9 % (9.6-15.2)
[2018-05-27 06:24] LABS: ALBUMIN 2.6 g/dL (3.4-5.0); ANION GAP 7 mmol/L (5-15); CALCIUM 9.3 mg/dL (8.5-10.1); CHLORIDE 115 mmol/L (98-107)
[2018-05-27 06:25] VITALS: BP 125/60
[2018-05-27 06:26] LABS: CREATININE 1.23 mg/dL (0.55-1.02)
[2018-05-27] MEDS: AMOXICILLIN/CLAV 875-125MG TABLET PO SCH ×2 (11:15→20:23)
[2018-05-27] MEDS: PANTOPROZOLE 40MG TABLET PO SCH (11:15)
[2018-05-27] MEDS: ASPIRIN 81 MG TABLET EC PO SCH (11:15)
[2018-05-27] MEDS: VALPROIC ACID 250 MG CAPSULE PO SCH ×2 (11:15→20:24)
[2018-05-27] MEDS: AMLODIPINE 5 MG TABLET PO SCH (11:15)
[2018-05-27] MEDS: SODIUM CHLORIDE FLUSH 10ML SYR IVF SCH ×2 (11:16→20:23)
[2018-05-27] MEDS: FONDAPARINUX 2.5 MG/0.5 ML SQ SCH (11:16)
[2018-05-27] MEDS: PENTOXIFYLLINE 400 MG TABLET.ER PO SCH (11:16)
[2018-05-27] MEDS: METOPROLOL TARTRATE 50 MG TABLET PO SCH ×2 (11:16→20:25)
[2018-05-27 14:52] VITALS: BP 115/95
[2018-05-27 18:52] VITALS: BP 146/64
[2018-05-27] MEDS: ATORVASTATIN 20 MG TABLET PO SCH (20:24)
[2018-05-27 20:26] VITALS: BP 132/77
[2018-05-27] MEDS: ZONISAMIDE 50 MG CAPSULE PO SCH (20:26)
[2018-05-28 00:43] VITALS: BP 104/57
[2018-05-28] MEDS: LEVOTHYROXINE 125 MCG TABLET PO SCH (05:20)
[2018-05-28 05:57] LABS: BASOPHILS # (AUTO) 0.04 x10^3/uL (0-0.1); BASOPHILS % (AUTO) 1 % (0-1); EOSINOPHILS # (AUTO) 0.59 x10^3/uL (0-0.4); EOSINOPHILS % (AUTO) 7 % (1-7); LYMPHOCYTES # (AUTO) 2.63 x10^3/uL (1-3.4); LYMPHOCYTES % (AUTO) 30 % (22-44); MD NO; MEAN CORPUSCULAR HEMOGLOBIN 34.3 pg (27.0-34.8); MEAN CORPUSCULAR HGB CONC 33.3 g/dL (32.4-35.8); MEAN PLATELET VOLUME 7.4 fL (7.4-10.4); MONOCYTES # (AUTO) 0.94 x10^3/uL (0.2-0.8); MONOCYTES % (AUTO) 11 % (2-9); NEUTROPHILS # (AUTO) 4.69 x10^3/uL (1.8-6.8); NEUTROPHILS % (AUTO) 53 % (42-75); PLATELET COUNT 248 x10^3/uL (130-400); RED BLOOD COUNT 3.68 x10^6/uL (3.82-5.3); RED CELL DISTRIBUTION WIDTH 18.2 % (9.6-15.2)
[2018-05-28 06:07] LABS: CHLORIDE 111 mmol/L (98-107)
[2018-05-28 06:15] LABS: ALANINE AMINOTRANSFERASE 16 U/L (12-78); ALBUMIN 2.7 g/dL (3.4-5.0); ALKALINE PHOSPHATASE 105 U/L (45-117); ANION GAP 9 mmol/L (5-15); BILIRUBIN,TOTAL 0.3 mg/dL (0.2-1.0); CALCIUM 9.7 mg/dL (8.5-10.1); CREATININE 1.29 mg/dL (0.55-1.02); TOTAL PROTEIN 8.4 g/dL (6.4-8.2)
[2018-05-28 06:50] VITALS: BP 123/52
[2018-05-28] MEDS: PENTOXIFYLLINE 400 MG TABLET.ER PO SCH ×2 (09:00→10:06)
[2018-05-28] MEDS: ASPIRIN 81 MG TABLET EC PO SCH ×2 (09:00→10:06)
[2018-05-28] MEDS: SODIUM CHLORIDE FLUSH 10ML SYR IVF SCH ×2 (09:00→21:00)
[2018-05-28] MEDS: PANTOPROZOLE 40MG TABLET PO SCH ×2 (09:00→10:06)
[2018-05-28] MEDS: AMLODIPINE 5 MG TABLET PO SCH ×2 (09:00→10:06)
[2018-05-28] MEDS: AMOXICILLIN/CLAV 875-125MG TABLET PO SCH ×2 (09:00→22:03)
[2018-05-28] MEDS: FONDAPARINUX 2.5 MG/0.5 ML SQ SCH (10:02)
[2018-05-28] MEDS: VALPROIC ACID 250 MG CAPSULE PO SCH ×2 (10:03→22:01)
[2018-05-28] MEDS: METOPROLOL TARTRATE 50 MG TABLET PO SCH ×2 (10:03→22:02)
[2018-05-28 13:50] VITALS: BP 103/52
[2018-05-28 16:24] VITALS: BP 141/63
[2018-05-28 19:59] VITALS: BP 121/69
[2018-05-28 21:57] VITALS: BP 125/64
[2018-05-28] MEDS: ZONISAMIDE 50 MG CAPSULE PO SCH (22:01)
[2018-05-28] MEDS: ATORVASTATIN 20 MG TABLET PO SCH (22:02)
[2018-05-29 00:04] VITALS: BP 102/60
[2018-05-29 05:37] LABS: BASOPHILS # (AUTO) 0.09 x10^3/uL (0-0.1); BASOPHILS % (AUTO) 1 % (0-1); EOSINOPHILS # (AUTO) 0.43 x10^3/uL (0-0.4); EOSINOPHILS % (AUTO) 5 % (1-7); LYMPHOCYTES # (AUTO) 3.06 x10^3/uL (1-3.4); LYMPHOCYTES % (AUTO) 35 % (22-44); MD NO; MEAN CORPUSCULAR HGB CONC 33.9 g/dL (32.4-35.8); MEAN CORPUSCULAR VOLUME 103.3 fL (80-100); MEAN PLATELET VOLUME 7.9 fL (7.4-10.4); MONOCYTES # (AUTO) 0.65 x10^3/uL (0.2-0.8); MONOCYTES % (AUTO) 8 % (2-9); NEUTROPHILS # (AUTO) 4.52 x10^3/uL (1.8-6.8); NEUTROPHILS % (AUTO) 52 % (42-75); PLATELET COUNT 190 x10^3/uL (130-400); RED BLOOD COUNT 3.28 x10^6/uL (3.82-5.3); RED CELL DISTRIBUTION WIDTH 17.8 % (9.6-15.2)
[2018-05-29] MEDS: LEVOTHYROXINE 125 MCG TABLET PO SCH (05:47)
[2018-05-29 05:50] LABS: CHLORIDE 110 mmol/L (98-107)
[2018-05-29 05:54] LABS: ALBUMIN 2.4 g/dL (3.4-5.0); ANION GAP 7 mmol/L (5-15); CALCIUM 9.2 mg/dL (8.5-10.1); CREATININE 1.58 mg/dL (0.55-1.02)
[2018-05-29 07:21] VITALS: BP 106/62
[2018-05-29] MEDS ORDERED: SODIUM CHLORIDE 0.45% 1,000 ML IV SCH (07:30)
[2018-05-29] MEDS: AMOXICILLIN/CLAV 875-125MG TABLET PO SCH ×2 (10:27→21:00)
[2018-05-29] MEDS: ASPIRIN 81 MG TABLET EC PO SCH (10:28)
[2018-05-29] MEDS: METOPROLOL TARTRATE 50 MG TABLET PO SCH ×2 (10:28→21:32)
[2018-05-29] MEDS: PENTOXIFYLLINE 400 MG TABLET.ER PO SCH (10:28)
[2018-05-29] MEDS: PANTOPROZOLE 40MG TABLET PO SCH (10:29)
[2018-05-29] MEDS: FONDAPARINUX 2.5 MG/0.5 ML SQ SCH (10:29)
[2018-05-29] MEDS: AMLODIPINE 5 MG TABLET PO SCH (10:29)
[2018-05-29] MEDS: VALPROATE SODIUM 250 MG/5 ML ORAL SOLN PO SCH ×2 (10:29→21:29)
[2018-05-29] MEDS: SODIUM CHLORIDE FLUSH 10ML SYR IVF SCH ×2 (10:30→21:00)
[2018-05-29 13:12] VITALS: BP 125/70
[2018-05-29 19:14] VITALS: BP 116/64
[2018-05-29] MEDS ORDERED: VALPROATE SODIUM 250 MG/5 ML ORAL SOLN PO SCH (21:00)
[2018-05-29] MEDS: ATORVASTATIN 20 MG TABLET PO SCH (21:31)
[2018-05-29] MEDS: ZONISAMIDE 50 MG CAPSULE PO SCH (21:33)
[2018-05-30 02:08] VITALS: BP_SYST 186; BP_SYST 97; BP_DIAS 126; BP_DIAS 54
[2018-05-30 05:44] LABS: ALBUMIN 2.7 g/dL (3.4-5.0); ANION GAP 8 mmol/L (5-15); CHLORIDE 108 mmol/L (98-107); CREATININE 1.39 mg/dL (0.55-1.02)
[2018-05-30 05:47] LABS: BASOPHILS # (AUTO) 0.06 x10^3/uL (0-0.1); BASOPHILS % (AUTO) 1 % (0-1); EOSINOPHILS # (AUTO) 0.51 x10^3/uL (0-0.4); EOSINOPHILS % (AUTO) 6 % (1-7); LYMPHOCYTES # (AUTO) 2.52 x10^3/uL (1-3.4); LYMPHOCYTES % (AUTO) 28 % (22-44); MD NO; MEAN CORPUSCULAR HEMOGLOBIN 34.9 pg (27.0-34.8); MEAN CORPUSCULAR HGB CONC 33.8 g/dL (32.4-35.8); MEAN CORPUSCULAR VOLUME 103.1 fL (80-100); MONOCYTES # (AUTO) 0.77 x10^3/uL (0.2-0.8); MONOCYTES % (AUTO) 9 % (2-9); NEUTROPHILS # (AUTO) 5.05 x10^3/uL (1.8-6.8); NEUTROPHILS % (AUTO) 57 % (42-75); PLATELET COUNT 229 x10^3/uL (130-400); RED BLOOD COUNT 3.53 x10^6/uL (3.82-5.3); RED CELL DISTRIBUTION WIDTH 17.7 % (9.6-15.2)
[2018-05-30] MEDS: LEVOTHYROXINE 125 MCG TABLET PO SCH (05:54)
[2018-05-30 06:44] VITALS: BP 106/56
[2018-05-30 08:30] VITALS: BP 149/89
[2018-05-30] MEDS: ASPIRIN 81 MG TABLET CHEW PO SCH (08:34)
[2018-05-30] MEDS: METOPROLOL TARTRATE 50 MG TABLET PO SCH ×2 (08:34→20:17)
[2018-05-30] MEDS: AMLODIPINE 5 MG TABLET PO SCH (08:34)
[2018-05-30] MEDS: FONDAPARINUX 2.5 MG/0.5 ML SQ SCH (08:35)
[2018-05-30] MEDS: SODIUM CHLORIDE FLUSH 10ML SYR IVF SCH ×2 (08:35→21:00)
[2018-05-30] MEDS: VALPROATE SODIUM 250 MG/5 ML ORAL SOLN PO SCH ×2 (08:35→20:22)
[2018-05-30] MEDS: PANTOPRAZOLE 40 MG IV IVPush SCH (10:45)
[2018-05-30 12:25] VITALS: BP 108/51
[2018-05-30] MEDS: AMOXICILLIN/CLAV 875-125MG TABLET PO SCH ×2 (13:03→20:28)
[2018-05-30 18:53] VITALS: BP 144/66
[2018-05-30] MEDS: ZONISAMIDE 50 MG CAPSULE PO SCH (20:24)
[2018-05-30] MEDS: ATORVASTATIN 20 MG TABLET PO SCH (20:24)
[2018-05-31 00:51] VITALS: BP 102/53
[2018-05-31] MEDS: LEVOTHYROXINE 125 MCG TABLET PO SCH (06:29)
[2018-05-31 06:44] VITALS: BP 120/56
[2018-05-31] MEDS: AMLODIPINE 5 MG TABLET PO SCH (09:27)
[2018-05-31] MEDS: METOPROLOL TARTRATE 50 MG TABLET PO SCH ×2 (09:27→20:07)
[2018-05-31] MEDS: AMOXICILLIN/CLAV 875-125MG TABLET PO SCH ×2 (09:27→21:02)
[2018-05-31] MEDS: VALPROATE SODIUM 250 MG/5 ML ORAL SOLN PO SCH ×2 (09:28→21:01)
[2018-05-31] MEDS: PANTOPRAZOLE 40 MG IV IVPush SCH (09:28)
[2018-05-31] MEDS: ASPIRIN 81 MG TABLET CHEW PO SCH (09:28)
[2018-05-31] MEDS: SODIUM CHLORIDE FLUSH 10ML SYR IVF SCH ×2 (09:28→21:01)
[2018-05-31] MEDS: FONDAPARINUX 2.5 MG/0.5 ML SQ SCH (09:28)
[2018-05-31 13:25] VITALS: BP 100/50
[2018-05-31 19:42] VITALS: BP 96/53
[2018-05-31] MEDS: ZONISAMIDE 50 MG CAPSULE PO SCH (21:00)
[2018-05-31] MEDS: ATORVASTATIN 20 MG TABLET PO SCH (21:01)
[2018-06-01 02:16] VITALS: BP 104/54
[2018-06-01] MEDS: LEVOTHYROXINE 125 MCG TABLET PO SCH (05:50)
[2018-06-01 06:07] LABS: ALBUMIN 2.5 g/dL (3.4-5.0); ANION GAP 8 mmol/L (5-15); CALCIUM 9.3 mg/dL (8.5-10.1); CHLORIDE 111 mmol/L (98-107); CREATININE 1.25 mg/dL (0.55-1.02)
[2018-06-01 06:45] VITALS: BP 106/58
[2018-06-01] MEDS: SODIUM CHLORIDE FLUSH 10ML SYR IVF SCH ×2 (09:00→21:14)
[2018-06-01] MEDS: AMLODIPINE 5 MG TABLET PO SCH (10:28)
[2018-06-01] MEDS: FONDAPARINUX 2.5 MG/0.5 ML SQ SCH (10:28)
[2018-06-01] MEDS: PANTOPRAZOLE 40 MG IV IVPush SCH (10:28)
[2018-06-01] MEDS: ASPIRIN 81 MG TABLET CHEW PO SCH (10:28)
[2018-06-01] MEDS: METOPROLOL TARTRATE 50 MG TABLET PO SCH ×2 (10:28→21:13)
[2018-06-01] MEDS: AMOXICILLIN/CLAV 875-125MG TABLET PO SCH ×2 (10:28→21:14)
[2018-06-01] MEDS: VALPROATE SODIUM 250 MG/5 ML ORAL SOLN PO SCH ×2 (10:38→21:13)
[2018-06-01 15:26] VITALS: BP 106/33
[2018-06-01 16:01] VITALS: BP 130/72
[2018-06-01 19:32] VITALS: BP 105/47
[2018-06-01] MEDS: ZONISAMIDE 50 MG CAPSULE PO SCH (21:11)
[2018-06-01] MEDS: ATORVASTATIN 20 MG TABLET PO SCH (21:14)
[2018-06-02 03:06] VITALS: BP 102/40
[2018-06-02 05:53] LABS: BASOPHILS # (AUTO) 0.06 x10^3/uL (0-0.1); BASOPHILS % (AUTO) 1 % (0-1); EOSINOPHILS # (AUTO) 0.83 x10^3/uL (0-0.4); EOSINOPHILS % (AUTO) 7 % (1-7); LYMPHOCYTES % (AUTO) 25 % (22-44); MD NO; MEAN CORPUSCULAR HEMOGLOBIN 34.3 pg (27.0-34.8); MEAN CORPUSCULAR HGB CONC 33.4 g/dL (32.4-35.8); MEAN CORPUSCULAR VOLUME 102.7 fL (80-100); MEAN PLATELET VOLUME 6.6 fL (7.4-10.4); MONOCYTES # (AUTO) 1.31 x10^3/uL (0.2-0.8); MONOCYTES % (AUTO) 12 % (2-9); NEUTROPHILS # (AUTO) 6.27 x10^3/uL (1.8-6.8); NEUTROPHILS % (AUTO) 56 % (42-75); PLATELET COUNT 196 x10^3/uL (130-400); RED BLOOD COUNT 3.43 x10^6/uL (3.82-5.3); RED CELL DISTRIBUTION WIDTH 17.2 % (9.6-15.2)
[2018-06-02 06:00] LABS: ALBUMIN 2.6 g/dL (3.4-5.0); ANION GAP 7 mmol/L (5-15); CALCIUM 9.1 mg/dL (8.5-10.1); CHLORIDE 111 mmol/L (98-107)
[2018-06-02 06:01] LABS: CREATININE 1.33 mg/dL (0.55-1.02)
[2018-06-02] MEDS: LEVOTHYROXINE 125 MCG TABLET PO SCH (06:21)
[2018-06-02 07:05] VITALS: BP 117/51
[2018-06-02] MEDS: METOPROLOL TARTRATE 50 MG TABLET PO SCH ×3 (09:00→21:29)
[2018-06-02] MEDS: AMLODIPINE 5 MG TABLET PO SCH (09:00)
[2018-06-02] MEDS: SODIUM CHLORIDE FLUSH 10ML SYR IVF SCH ×2 (09:00→21:27)
[2018-06-02] MEDS: ASPIRIN 81 MG TABLET CHEW PO SCH (09:00)
[2018-06-02] MEDS: AMOXICILLIN/CLAV 875-125MG TABLET PO SCH ×2 (09:00→21:00)
[2018-06-02] MEDS: VALPROATE SODIUM 250 MG/5 ML ORAL SOLN PO SCH ×2 (09:00→21:30)
[2018-06-02] MEDS: FONDAPARINUX 2.5 MG/0.5 ML SQ SCH (09:44)
[2018-06-02] MEDS: PANTOPRAZOLE 40 MG IV IVPush SCH (09:45)
[2018-06-02 12:31] VITALS: BP 122/67
[2018-06-02 18:49] VITALS: BP 131/44
[2018-06-02] MEDS: ZONISAMIDE 50 MG CAPSULE PO SCH (21:29)
[2018-06-02] MEDS: ATORVASTATIN 20 MG TABLET PO SCH (21:30)
[2018-06-03 02:11] VITALS: BP 102/53
[2018-06-03] MEDS: LEVOTHYROXINE 125 MCG TABLET PO SCH (05:19)
[2018-06-03 06:11] LABS: ALBUMIN 2.5 g/dL (3.4-5.0); ANION GAP 9 mmol/L (5-15); CALCIUM 9.8 mg/dL (8.5-10.1); CHLORIDE 113 mmol/L (98-107); CREATININE 1.23 mg/dL (0.55-1.02)
[2018-06-03 07:05] VITALS: BP 107/45
[2018-06-03] MEDS: VALPROATE SODIUM 250 MG/5 ML ORAL SOLN PO SCH ×2 (08:33→21:49)
[2018-06-03] MEDS: AMLODIPINE 5 MG TABLET PO SCH (08:33)
[2018-06-03] MEDS: METOPROLOL TARTRATE 50 MG TABLET PO SCH ×2 (08:34→21:48)
[2018-06-03] MEDS: ASPIRIN 81 MG TABLET CHEW PO SCH (08:34)
[2018-06-03] MEDS: PANTOPRAZOLE 40 MG IV IVPush SCH (08:34)
[2018-06-03] MEDS: FONDAPARINUX 2.5 MG/0.5 ML SQ SCH (08:36)
[2018-06-03] MEDS: SODIUM CHLORIDE 0.45% 1,000 ML IV SCH ×2 (08:40→17:22)
[2018-06-03] MEDS: SODIUM CHLORIDE FLUSH 10ML SYR IVF SCH ×2 (08:40→21:53)
[2018-06-03 15:15] VITALS: BP 100/78
[2018-06-03 19:53] VITALS: BP 135/79
[2018-06-03] MEDS: ZONISAMIDE 50 MG CAPSULE PO SCH (21:48)
[2018-06-03] MEDS: ATORVASTATIN 20 MG TABLET PO SCH (21:48)
[2018-06-04 03:07] VITALS: BP 124/65
[2018-06-04] MEDS: SODIUM CHLORIDE 0.45% 1,000 ML IV SCH ×2 (03:30→14:00)
[2018-06-04] MEDS: ACETAMINOPHEN 325 MG TABLET PO PRN ×2 (03:31→20:38)
[2018-06-04] MEDS: LEVOTHYROXINE 125 MCG TABLET PO SCH (05:56)
[2018-06-04 06:35] VITALS: BP 124/54
[2018-06-04] MEDS: AMLODIPINE 5 MG TABLET PO SCH (08:57)
[2018-06-04] MEDS: METOPROLOL TARTRATE 50 MG TABLET PO SCH ×2 (08:57→20:38)
[2018-06-04] MEDS: ASPIRIN 81 MG TABLET CHEW PO SCH (08:57)
[2018-06-04] MEDS: PANTOPRAZOLE 40 MG IV IVPush SCH (08:58)
[2018-06-04] MEDS: VALPROATE SODIUM 250 MG/5 ML ORAL SOLN PO SCH ×2 (08:58→21:10)
[2018-06-04] MEDS: FONDAPARINUX 2.5 MG/0.5 ML SQ SCH (08:58)
[2018-06-04] MEDS: SODIUM CHLORIDE FLUSH 10ML SYR IVF SCH ×2 (09:00→21:10)
[2018-06-04 11:57] VITALS: BP 126/47
[2018-06-04] MEDS ORDERED: HYDROCORTISONE 100 MG INJ. IVPush SCH (17:00)
[2018-06-04 19:54] VITALS: BP 136/62
[2018-06-04] MEDS: ATORVASTATIN 20 MG TABLET PO SCH (20:36)
[2018-06-04] MEDS: ZONISAMIDE 50 MG CAPSULE PO SCH (20:36)
[2018-06-05 01:36] VITALS: BP 121/65
[2018-06-05] MEDS: LEVOTHYROXINE 125 MCG TABLET PO SCH (05:31)
[2018-06-05 05:50] LABS: ALBUMIN 2.3 g/dL (3.4-5.0); ANION GAP 7 mmol/L (5-15); CHLORIDE 115 mmol/L (98-107)
[2018-06-05 05:52] LABS: CREATININE 1.09 mg/dL (0.55-1.02)
[2018-06-05 06:50] LABS: BASOPHILS # (AUTO) 0.04 x10^3/uL (0-0.1); BASOPHILS % (AUTO) 1 % (0-1); EOSINOPHILS # (AUTO) 0.72 x10^3/uL (0-0.4); EOSINOPHILS % (AUTO) 7 % (1-7); LYMPHOCYTES # (AUTO) 2.03 x10^3/uL (1-3.4); LYMPHOCYTES % (AUTO) 21 % (22-44); MD NO; MEAN CORPUSCULAR HEMOGLOBIN 34.4 pg (27.0-34.8); MEAN CORPUSCULAR HGB CONC 33.3 g/dL (32.4-35.8); MEAN CORPUSCULAR VOLUME 103.5 fL (80-100); MEAN PLATELET VOLUME 7.6 fL (7.4-10.4); MONOCYTES # (AUTO) 0.85 x10^3/uL (0.2-0.8); MONOCYTES % (AUTO) 9 % (2-9); NEUTROPHILS # (AUTO) 6.11 x10^3/uL (1.8-6.8); NEUTROPHILS % (AUTO) 63 % (42-75); PLATELET COUNT 158 x10^3/uL (130-400); RED BLOOD COUNT 3.32 x10^6/uL (3.82-5.3); RED CELL DISTRIBUTION WIDTH 16.5 % (9.6-15.2)
[2018-06-05 06:51] VITALS: BP 118/47
[2018-06-05] MEDS: METOPROLOL TARTRATE 50 MG TABLET PO SCH ×2 (08:26→20:31)
[2018-06-05] MEDS: FONDAPARINUX 2.5 MG/0.5 ML SQ SCH (08:26)
[2018-06-05] MEDS: PANTOPRAZOLE 40 MG IV IVPush SCH (08:26)
[2018-06-05] MEDS: ASPIRIN 81 MG TABLET CHEW PO SCH (08:26)
[2018-06-05] MEDS: AMLODIPINE 5 MG TABLET PO SCH (08:26)
[2018-06-05] MEDS: VALPROATE SODIUM 250 MG/5 ML ORAL SOLN PO SCH ×2 (08:27→20:31)
[2018-06-05] MEDS: SODIUM CHLORIDE FLUSH 10ML SYR IVF SCH ×2 (08:28→20:31)
[2018-06-05 15:03] VITALS: BP 104/52
[2018-06-05] MEDS: ATORVASTATIN 20 MG TABLET PO SCH (20:31)
[2018-06-05] MEDS: ZONISAMIDE 50 MG CAPSULE PO SCH (20:31)
[2018-06-05 21:03] VITALS: BP 112/50
[2018-06-06 01:40] VITALS: BP 117/50
[2018-06-06] MEDS: LEVOTHYROXINE 125 MCG TABLET PO SCH (05:12)
[2018-06-06 07:21] VITALS: BP 122/56
[2018-06-06 09:04] LABS: ALBUMIN 2.3 g/dL (3.4-5.0); ANION GAP 7 mmol/L (5-15); CALCIUM 8.8 mg/dL (8.5-10.1); CHLORIDE 115 mmol/L (98-107); CREATININE 0.99 mg/dL (0.55-1.02)
[2018-06-06] MEDS: ASPIRIN 81 MG TABLET CHEW PO SCH (09:19)
[2018-06-06] MEDS: METOPROLOL TARTRATE 50 MG TABLET PO SCH ×2 (09:19→22:32)
[2018-06-06] MEDS: SODIUM CHLORIDE FLUSH 10ML SYR IVF SCH ×2 (09:19→22:32)
[2018-06-06] MEDS: FONDAPARINUX 2.5 MG/0.5 ML SQ SCH (09:20)
[2018-06-06] MEDS: PANTOPROZOLE 40MG TABLET PO SCH (09:20)
[2018-06-06] MEDS: AMLODIPINE 5 MG TABLET PO SCH (09:20)
[2018-06-06] MEDS: VALPROATE SODIUM 250 MG/5 ML ORAL SOLN PO SCH ×2 (09:20→22:32)
[2018-06-06 13:10] VITALS: BP 126/56
[2018-06-06 20:22] VITALS: BP 116/48
[2018-06-06] MEDS: ATORVASTATIN 20 MG TABLET PO SCH (22:32)
[2018-06-06] MEDS: ZONISAMIDE 50 MG CAPSULE PO SCH (22:32)
[2018-06-07 02:02] VITALS: BP 130/66
[2018-06-07] MEDS: LEVOTHYROXINE 125 MCG TABLET PO SCH (04:50)
[2018-06-07 07:21] VITALS: BP 134/69
[2018-06-07] MEDS: SODIUM CHLORIDE FLUSH 10ML SYR IVF SCH ×2 (08:34→20:48)
[2018-06-07] MEDS: METOPROLOL TARTRATE 50 MG TABLET PO SCH ×2 (08:35→20:47)
[2018-06-07] MEDS: AMLODIPINE 5 MG TABLET PO SCH (08:35)
[2018-06-07] MEDS: PANTOPROZOLE 40MG TABLET PO SCH (08:35)
[2018-06-07] MEDS: ASPIRIN 81 MG TABLET CHEW PO SCH (08:35)
[2018-06-07] MEDS: VALPROATE SODIUM 250 MG/5 ML ORAL SOLN PO SCH ×2 (08:36→20:47)
[2018-06-07] MEDS: FONDAPARINUX 2.5 MG/0.5 ML SQ SCH (08:36)
[2018-06-07 14:00] VITALS: BP 121/58
[2018-06-07 20:29] VITALS: BP 103/59
[2018-06-07] MEDS: ZONISAMIDE 50 MG CAPSULE PO SCH (20:47)
[2018-06-07] MEDS: ATORVASTATIN 20 MG TABLET PO SCH (20:48)
[2018-06-08 02:31] VITALS: BP 121/65
[2018-06-08] MEDS: LEVOTHYROXINE 125 MCG TABLET PO SCH (06:16)
[2018-06-08 07:21] VITALS: BP 124/64
[2018-06-08] MEDS: ASPIRIN 81 MG TABLET CHEW PO SCH (09:53)
[2018-06-08] MEDS: AMLODIPINE 5 MG TABLET PO SCH (09:53)
[2018-06-08] MEDS: METOPROLOL TARTRATE 50 MG TABLET PO SCH ×2 (09:53→20:47)
[2018-06-08] MEDS: SODIUM CHLORIDE FLUSH 10ML SYR IVF SCH ×2 (09:53→20:46)
[2018-06-08] MEDS: PANTOPROZOLE 40MG TABLET PO SCH (09:54)
[2018-06-08] MEDS: FONDAPARINUX 2.5 MG/0.5 ML SQ SCH (10:54)
[2018-06-08] MEDS: VALPROATE SODIUM 250 MG/5 ML ORAL SOLN PO SCH ×2 (10:54→20:47)
[2018-06-08 14:00] VITALS: BP 102/52
[2018-06-08] MEDS: ACETAMINOPHEN 325 MG TABLET PO PRN (17:38)
[2018-06-08 19:59] VITALS: BP 103/51
[2018-06-08] MEDS: ZONISAMIDE 50 MG CAPSULE PO SCH (20:47)
[2018-06-08] MEDS: ATORVASTATIN 20 MG TABLET PO SCH (20:47)
[2018-06-09 00:23] VITALS: BP 117/63
[2018-06-09] MEDS: LEVOTHYROXINE 125 MCG TABLET PO SCH (05:30)
[2018-06-09 08:00] VITALS: BP 141/69
[2018-06-09 09:27] VITALS: BP 121/58
[2018-06-09] MEDS: PANTOPROZOLE 40MG TABLET PO SCH (09:28)
[2018-06-09] MEDS: METOPROLOL TARTRATE 50 MG TABLET PO SCH ×2 (09:28→21:42)
[2018-06-09] MEDS: VALPROATE SODIUM 250 MG/5 ML ORAL SOLN PO SCH ×2 (09:28→21:42)
[2018-06-09] MEDS: ASPIRIN 81 MG TABLET CHEW PO SCH (09:28)
[2018-06-09] MEDS: AMLODIPINE 5 MG TABLET PO SCH (09:28)
[2018-06-09] MEDS: SODIUM CHLORIDE FLUSH 10ML SYR IVF SCH ×2 (09:29→21:43)
[2018-06-09] MEDS: FONDAPARINUX 2.5 MG/0.5 ML SQ SCH (09:39)
[2018-06-09 13:34] VITALS: BP 132/70
[2018-06-09 20:43] VITALS: BP 133/66
[2018-06-09] MEDS: ATORVASTATIN 20 MG TABLET PO SCH (21:41)
[2018-06-09] MEDS: ZONISAMIDE 50 MG CAPSULE PO SCH (21:42)
[2018-06-10 02:51] VITALS: BP 147/72
[2018-06-10 06:07] LABS: MEAN CORPUSCULAR VOLUME 103.1 fL (80-100); MEAN PLATELET VOLUME 7.1 fL (7.4-10.4); PLATELET COUNT 211 x10^3/uL (130-400); RED BLOOD COUNT 3.21 x10^6/uL (3.82-5.3); RED CELL DISTRIBUTION WIDTH 15.6 % (9.6-15.2)
[2018-06-10 06:13] LABS: ALBUMIN 2.3 g/dL (3.4-5.0); ANION GAP 12 mmol/L (5-15); CALCIUM 9.4 mg/dL (8.5-10.1); CHLORIDE 115 mmol/L (98-107); CREATININE 1.12 mg/dL (0.55-1.02)
[2018-06-10] MEDS: LEVOTHYROXINE 125 MCG TABLET PO SCH (06:22)
[2018-06-10 06:33] LABS: BASOPHILS # (AUTO) 0.06 x10^3/uL (0-0.1); BASOPHILS % (AUTO) 1 % (0-1); EOSINOPHILS # (AUTO) 0.58 x10^3/uL (0-0.4); EOSINOPHILS % (AUTO) 4 % (1-7); LYMPHOCYTES # (AUTO) 1.94 x10^3/uL (1-3.4); LYMPHOCYTES % (AUTO) 15 % (22-44); MD SCAN; MONOCYTES # (AUTO) 2.08 x10^3/uL (0.2-0.8); MONOCYTES % (AUTO) 16 % (2-9); NEUTROPHILS # (AUTO) 8.44 x10^3/uL (1.8-6.8); NEUTROPHILS % (AUTO) 64 % (42-75)
[2018-06-10 07:40] VITALS: BP 133/95
[2018-06-10] MEDS: METOPROLOL TARTRATE 50 MG TABLET PO SCH ×2 (09:49→20:48)
[2018-06-10] MEDS: ASPIRIN 81 MG TABLET CHEW PO SCH (09:49)
[2018-06-10] MEDS: PANTOPROZOLE 40MG TABLET PO SCH (09:49)
[2018-06-10] MEDS: AMLODIPINE 5 MG TABLET PO SCH (09:49)
[2018-06-10] MEDS: FONDAPARINUX 2.5 MG/0.5 ML SQ SCH (09:50)
[2018-06-10] MEDS: VALPROATE SODIUM 250 MG/5 ML ORAL SOLN PO SCH ×2 (09:50→20:47)
[2018-06-10] MEDS: SODIUM CHLORIDE FLUSH 10ML SYR IVF SCH ×2 (09:59→20:47)
[2018-06-10] MEDS: SODIUM BICARBONATE 8.4% 100 MEQ in DEXTROSE 5% 1,000 ML IV SCH (10:40)
[2018-06-10 14:00] VITALS: BP 109/55
[2018-06-10 19:46] VITALS: BP 118/58
[2018-06-10] MEDS: ATORVASTATIN 20 MG TABLET PO SCH (20:47)
[2018-06-10] MEDS: ZONISAMIDE 50 MG CAPSULE PO SCH (20:48)
[2018-06-11] MEDS: SODIUM BICARBONATE 8.4% 100 MEQ in DEXTROSE 5% 1,000 ML IV SCH (01:00)
[2018-06-11 02:54] VITALS: BP 107/54
[2018-06-11 05:41] LABS: ALBUMIN 2.2 g/dL (3.4-5.0); ANION GAP 8 mmol/L (5-15); CHLORIDE 111 mmol/L (98-107); CREATININE 1.08 mg/dL (0.55-1.02)
[2018-06-11] MEDS: LEVOTHYROXINE 125 MCG TABLET PO SCH ×2 (05:55→06:00)
[2018-06-11] MEDS: ACETAMINOPHEN 325 MG TABLET PO PRN ×2 (06:18→21:10)
[2018-06-11 07:48] VITALS: BP 117/54
[2018-06-11] MEDS: AMLODIPINE 5 MG TABLET PO SCH (08:03)
[2018-06-11] MEDS: VALPROATE SODIUM 250 MG/5 ML ORAL SOLN PO SCH ×2 (08:03→20:53)
[2018-06-11] MEDS: FONDAPARINUX 2.5 MG/0.5 ML SQ SCH (08:03)
[2018-06-11] MEDS: ASPIRIN 81 MG TABLET CHEW PO SCH (08:03)
[2018-06-11] MEDS: METOPROLOL TARTRATE 50 MG TABLET PO SCH ×2 (08:03→20:53)
[2018-06-11] MEDS: PANTOPROZOLE 40MG TABLET PO SCH (08:03)
[2018-06-11] MEDS: SODIUM CHLORIDE FLUSH 10ML SYR IVF SCH ×2 (08:03→20:52)
[2018-06-11 13:58] VITALS: BP 82/36
[2018-06-11 14:20] VITALS: BP 104/57
[2018-06-11] MEDS ORDERED: SODIUM CHLORIDE 0.9% 1,000ML IVBOLUS ONE (14:30)
[2018-06-11 15:10] VITALS: BP 96/47
[2018-06-11 20:31] VITALS: BP 143/62
[2018-06-11] MEDS: ATORVASTATIN 20 MG TABLET PO SCH (20:53)
[2018-06-11] MEDS: ZONISAMIDE 50 MG CAPSULE PO SCH (20:53)
[2018-06-12 01:17] VITALS: BP 139/57
[2018-06-12] MEDS: ACETAMINOPHEN 325 MG TABLET PO PRN ×2 (03:50→20:21)
[2018-06-12] MEDS: LEVOTHYROXINE 125 MCG TABLET PO SCH (05:49)
[2018-06-12 07:32] VITALS: BP 129/61
[2018-06-12] MEDS: AMLODIPINE 5 MG TABLET PO SCH (08:20)
[2018-06-12] MEDS: METOPROLOL TARTRATE 50 MG TABLET PO SCH ×2 (08:20→20:21)
[2018-06-12] MEDS: VALPROATE SODIUM 250 MG/5 ML ORAL SOLN PO SCH ×2 (08:20→20:27)
[2018-06-12] MEDS: ASPIRIN 81 MG TABLET CHEW PO SCH (08:20)
[2018-06-12] MEDS: PANTOPROZOLE 40MG TABLET PO SCH (08:20)
[2018-06-12] MEDS: FONDAPARINUX 2.5 MG/0.5 ML SQ SCH (08:21)
[2018-06-12] MEDS: SODIUM CHLORIDE FLUSH 10ML SYR IVF SCH ×2 (08:22→20:20)
[2018-06-12 13:34] VITALS: BP 114/60
[2018-06-12 20:10] VITALS: BP 115/66
[2018-06-12] MEDS: ZONISAMIDE 50 MG CAPSULE PO SCH (20:21)
[2018-06-12] MEDS: ATORVASTATIN 20 MG TABLET PO SCH (20:21)
[2018-06-13 01:52] VITALS: BP 114/56
[2018-06-13] MEDS: LEVOTHYROXINE 125 MCG TABLET PO SCH (05:15)
[2018-06-13 07:33] VITALS: BP 126/65
[2018-06-13] MEDS: SODIUM CHLORIDE FLUSH 10ML SYR IVF SCH ×2 (09:00→20:51)
[2018-06-13] MEDS: FONDAPARINUX 2.5 MG/0.5 ML SQ SCH (09:23)
[2018-06-13] MEDS: AMLODIPINE 5 MG TABLET PO SCH (09:24)
[2018-06-13] MEDS: PANTOPROZOLE 40MG TABLET PO SCH (09:24)
[2018-06-13] MEDS: METOPROLOL TARTRATE 50 MG TABLET PO SCH ×2 (09:24→20:51)
[2018-06-13] MEDS: VALPROATE SODIUM 250 MG/5 ML ORAL SOLN PO SCH ×2 (09:24→20:52)
[2018-06-13] MEDS: ASPIRIN 81 MG TABLET CHEW PO SCH (09:29)
[2018-06-13] MEDS: ACETAMINOPHEN 325 MG TABLET PO PRN (11:53)
[2018-06-13 13:11] VITALS: BP 112/58
[2018-06-13 19:45] VITALS: BP 128/77
[2018-06-13] MEDS: ATORVASTATIN 20 MG TABLET PO SCH (20:51)
[2018-06-13] MEDS: ZONISAMIDE 50 MG CAPSULE PO SCH (20:51)
[2018-06-14 01:51] VITALS: BP 124/69
[2018-06-14] MEDS: LEVOTHYROXINE 125 MCG TABLET PO SCH (05:33)
[2018-06-14 07:28] VITALS: BP 117/51
[2018-06-14] MEDS: AMLODIPINE 5 MG TABLET PO SCH (07:54)
[2018-06-14] MEDS: FONDAPARINUX 2.5 MG/0.5 ML SQ SCH (07:54)
[2018-06-14] MEDS: VALPROATE SODIUM 250 MG/5 ML ORAL SOLN PO SCH ×2 (07:54→20:38)
[2018-06-14] MEDS: METOPROLOL TARTRATE 50 MG TABLET PO SCH ×2 (07:55→20:37)
[2018-06-14] MEDS: ASPIRIN 81 MG TABLET CHEW PO SCH (07:55)
[2018-06-14] MEDS: PANTOPROZOLE 40MG TABLET PO SCH (07:55)
[2018-06-14] MEDS: SODIUM CHLORIDE FLUSH 10ML SYR IVF SCH ×2 (09:00→20:38)
[2018-06-14] MEDS: ACETAMINOPHEN 325 MG TABLET PO PRN (12:54)
[2018-06-14 13:45] VITALS: BP 115/49
[2018-06-14 19:32] VITALS: BP 152/75
[2018-06-14] MEDS: ZONISAMIDE 50 MG CAPSULE PO SCH (20:37)
[2018-06-14] MEDS: ATORVASTATIN 20 MG TABLET PO SCH (20:37)
[2018-06-15 01:31] VITALS: BP 124/62
[2018-06-15] MEDS: LEVOTHYROXINE 125 MCG TABLET PO SCH (05:35)
[2018-06-15 07:42] VITALS: BP 105/60
[2018-06-15] MEDS: SODIUM CHLORIDE FLUSH 10ML SYR IVF SCH ×2 (07:57→21:58)
[2018-06-15] MEDS: FONDAPARINUX 2.5 MG/0.5 ML SQ SCH (07:57)
[2018-06-15] MEDS: ASPIRIN 81 MG TABLET CHEW PO SCH (07:57)
[2018-06-15] MEDS: VALPROATE SODIUM 250 MG/5 ML ORAL SOLN PO SCH ×2 (07:57→21:58)
[2018-06-15] MEDS: METOPROLOL TARTRATE 50 MG TABLET PO SCH ×2 (07:58→21:58)
[2018-06-15] MEDS: PANTOPROZOLE 40MG TABLET PO SCH (07:58)
[2018-06-15] MEDS: AMLODIPINE 5 MG TABLET PO SCH (07:58)
[2018-06-15 13:50] VITALS: BP 139/55
[2018-06-15 21:39] VITALS: BP 133/74
[2018-06-15] MEDS: ZONISAMIDE 50 MG CAPSULE PO SCH (21:58)
[2018-06-15] MEDS: ATORVASTATIN 20 MG TABLET PO SCH (21:58)
[2018-06-16 02:40] VITALS: BP 108/58
[2018-06-16] MEDS: LEVOTHYROXINE 125 MCG TABLET PO SCH (06:15)
[2018-06-16 09:17] VITALS: BP 138/69
[2018-06-16] MEDS: ASPIRIN 81 MG TABLET CHEW PO SCH (10:05)
[2018-06-16] MEDS: AMLODIPINE 5 MG TABLET PO SCH (10:05)
[2018-06-16] MEDS: METOPROLOL TARTRATE 50 MG TABLET PO SCH ×2 (10:06→20:37)
[2018-06-16] MEDS: PANTOPROZOLE 40MG TABLET PO SCH (10:06)
[2018-06-16] MEDS: FONDAPARINUX 2.5 MG/0.5 ML SQ SCH (10:11)
[2018-06-16] MEDS: SODIUM CHLORIDE FLUSH 10ML SYR IVF SCH ×2 (10:12→20:38)
[2018-06-16] MEDS: VALPROATE SODIUM 250 MG/5 ML ORAL SOLN PO SCH ×2 (11:08→20:38)
[2018-06-16 12:41] VITALS: BP 110/57
[2018-06-16] MEDS: ATORVASTATIN 20 MG TABLET PO SCH (20:37)
[2018-06-16] MEDS: ZONISAMIDE 50 MG CAPSULE PO SCH (20:37)
[2018-06-16 21:17] VITALS: BP 107/60
[2018-06-17 02:29] VITALS: BP 125/65
[2018-06-17] MEDS: LEVOTHYROXINE 125 MCG TABLET PO SCH (06:01)
[2018-06-17 06:29] VITALS: BP 121/72
[2018-06-17] MEDS: SODIUM CHLORIDE FLUSH 10ML SYR IVF SCH ×2 (08:16→21:57)
[2018-06-17] MEDS: ASPIRIN 81 MG TABLET CHEW PO SCH (08:16)
[2018-06-17] MEDS: VALPROATE SODIUM 250 MG/5 ML ORAL SOLN PO SCH ×2 (08:17→21:57)
[2018-06-17] MEDS: AMLODIPINE 5 MG TABLET PO SCH (08:17)
[2018-06-17] MEDS: METOPROLOL TARTRATE 50 MG TABLET PO SCH ×2 (08:17→21:57)
[2018-06-17] MEDS: PANTOPROZOLE 40MG TABLET PO SCH (08:17)
[2018-06-17] MEDS: FONDAPARINUX 2.5 MG/0.5 ML SQ SCH (08:18)
[2018-06-17 12:10] VITALS: BP 124/68
[2018-06-17 20:33] VITALS: BP 115/62
[2018-06-17] MEDS: ATORVASTATIN 20 MG TABLET PO SCH (21:57)
[2018-06-17] MEDS: ZONISAMIDE 50 MG CAPSULE PO SCH (21:58)
[2018-06-18 02:30] VITALS: BP 98/66
[2018-06-18 02:32] VITALS: BP 126/57
[2018-06-18] MEDS: LEVOTHYROXINE 125 MCG TABLET PO SCH (06:03)
[2018-06-18 06:33] VITALS: BP 131/56
[2018-06-18] MEDS: AMLODIPINE 5 MG TABLET PO SCH (08:41)
[2018-06-18] MEDS: METOPROLOL TARTRATE 50 MG TABLET PO SCH (08:41)
[2018-06-18] MEDS: ASPIRIN 81 MG TABLET CHEW PO SCH (08:41)
[2018-06-18] MEDS: PANTOPROZOLE 40MG TABLET PO SCH (08:42)
[2018-06-18] MEDS: SODIUM CHLORIDE FLUSH 10ML SYR IVF SCH (08:42)
[2018-06-18] MEDS: FONDAPARINUX 2.5 MG/0.5 ML SQ SCH (08:43)
[2018-06-18] MEDS: VALPROATE SODIUM 250 MG/5 ML ORAL SOLN PO SCH (08:43)
[2018-06-18] MEDS ORDERED: LEVO125T PO (11:39)
[2018-06-18] MEDS ORDERED: PANT40TA5 PO (11:39)
[2018-06-18] MEDS ORDERED: ATOR20TA9 PO (11:39)
[2018-06-18] MEDS ORDERED: ASPI-515 PO (11:39)
[2018-06-18] MEDS ORDERED: ZONI50CA2 PO (11:39)
[2018-06-18] MEDS ORDERED: VALP250S PO (11:39)
[2018-06-18 12:25] VITALS: BP 133/56
[2018-06-18] MEDS ORDERED: METO-264 PO (14:41)
== END 2018-06-18 15:46 | disposition home or self-care (01) | DRG 314 ==
LOC: ED 19:39 → EDIP 21:26 → 4WST 22:31
PROVIDERS: ADMIT Internal Medicine; ATTEND Hospitalist
PROC: 0T9B70Z Drainage of Bladder with Drainage Device, Via Natural or Artificial Opening (ICD-10-PCS; principal; 2018-05-19)
PROC: 4B02XSZ Measurement of Cardiac Pacemaker, External Approach (ICD-10-PCS; 2018-05-21)
DX: T82.119A Breakdown (mechanical) of unspecified cardiac electronic device, initial encounter (principal); E43 Unspecified severe protein-calorie malnutrition; N17.9 Acute kidney failure, unspecified; I13.0 Hypertensive heart and chronic kidney disease with heart failure and stage 1 through stage 4 chronic kidney disease, or unspecified chronic kidney disease; E87.2 Acidosis; G40.209 Localization-related (focal) (partial) symptomatic epilepsy and epileptic syndromes with complex partial seizures, not intractable, without status epilepticus; I50.22 Chronic systolic (congestive) heart failure; I69.351 Hemiplegia and hemiparesis following cerebral infarction affecting right dominant side; D53.9 Nutritional anemia, unspecified; D75.82 Heparin induced thrombocytopenia (HIT); D75.89 Other specified diseases of blood and blood-forming organs; E03.9 Hypothyroidism, unspecified; E16.2 Hypoglycemia, unspecified; E78.00 Pure hypercholesterolemia, unspecified; E87.5 Hyperkalemia; F01.50 Vascular dementia, unspecified severity, without behavioral disturbance, psychotic disturbance, mood disturbance, and anxiety; F17.200 Nicotine dependence, unspecified, uncomplicated; F41.9 Anxiety disorder, unspecified; G24.01 Drug induced subacute dyskinesia; I25.10 Atherosclerotic heart disease of native coronary artery without angina pectoris; I25.5 Ischemic cardiomyopathy; J01.90 Acute sinusitis, unspecified; J32.3 Chronic sphenoidal sinusitis; J44.9 Chronic obstructive pulmonary disease, unspecified; M24.551 Contracture, right hip; N18.9 Chronic kidney disease, unspecified; R13.10 Dysphagia, unspecified; Z96.641 Presence of right artificial hip joint; W05.0XXA Fall from non-moving wheelchair, initial encounter; R29.6 Repeated falls; R29.810 Facial weakness; S00.03XA Contusion of scalp, initial encounter; Y71.2 Prosthetic and other implants, materials and accessory cardiovascular devices associated with adverse incidents; I25.2 Old myocardial infarction; Y92.129 Unspecified place in nursing home as the place of occurrence of the external cause; Z87.440 Personal history of urinary (tract) infections; Z68.20 Body mass index [BMI] 20.0-20.9, adult; Z95.0 Presence of cardiac pacemaker; Z95.5 Presence of coronary angioplasty implant and graft; Z90.710 Acquired absence of both cervix and uterus
CPT/HCPCS: 36415; 70450; 71045; 72125; 74177; 80048; 80053; 80164; 81001; 82040; 82140; 82533; 82550; 82607; 82746; 82962; 83036; 83735; 84100; 84439; 84443; 84484; 84681; 85025; 85610; 85730; 87086; 87324; 93005; 96360; 99285; G0378; J7070; Q9967; 92523-GN; C9113; G0515-GN; J0834; J1652; J2060; J7030

== ENCOUNTER 2018-07-11 17:47 | Inpatient (IN) | payer MEDICARE, OTHER ==
[~2018-07-11] VITALS: Ht 157.5 cm; Wt 52.8 kg
[~2018-07-11 17:47] MED LIST changes: +AMLO-150 PO; -AMLO5TAB7 PO; -ASPI-621 PO; +ASPI81TA45 PO; +ATOR20TA37 PO; +LEVO125T PO; +METO-264 PO
[2018-07-11] MEDS ORDERED: VALP250C59 PO (18:14)
[2018-07-11] MEDS ORDERED: SODIUM CHLORIDE 0.9% 1,000 ML IV ONE ×2 (18:16→20:44)
[2018-07-11] MEDS ORDERED: SODIUM CHLORIDE 0.9% 1,000ML IVBOLUS ONE ×2 (18:30→20:30)
[2018-07-11] MEDS ORDERED: SODIUM CHLORIDE FLUSH 10ML SYR IVF ONE (18:30)
[2018-07-11 18:34] LABS: MICROSCOPIC INDICATED
[2018-07-11 18:45] LABS: CULTURE INDICATED? NO
[2018-07-11 19:12] LABS: ANION GAP 14 mmol/L (5-15); CALCIUM 7.6 mg/dL (8.5-10.1); CHLORIDE 116 mmol/L (98-107); SALICYLATE LEVEL 1.8 mg/dL (2.8-20.0)
[2018-07-11 19:15] LABS: BILIRUBIN,TOTAL 0.2 mg/dL (0.2-1.0); CREATININE 3.79 mg/dL (0.55-1.02)
[2018-07-11 19:16] LABS: ACETAMINOPHEN 15 mcg/mL (10-30); ALANINE AMINOTRANSFERASE 15 U/L (12-78); TOTAL PROTEIN 6.9 g/dL (6.4-8.2); TROPONIN I < 0.015 ng/mL (0.000-0.045)
[2018-07-11 19:22] LABS: ALBUMIN 1.9 g/dL (3.4-5.0); ALKALINE PHOSPHATASE 80 U/L (45-117); FREE T4 (FREE THYROXINE) 0.68 ng/dL (0.76-1.46)
[2018-07-11] MEDS ORDERED: DEXTROSE 50%, 50ML SYRINGE ONE (19:39)
[2018-07-11 19:49] LABS: MEAN CORPUSCULAR HEMOGLOBIN 34.5 pg (27.0-34.8); MEAN CORPUSCULAR HGB CONC 33.8 g/dL (32.4-35.8); MEAN CORPUSCULAR VOLUME 102.1 fL (80-100); MEAN PLATELET VOLUME 8.5 fL (7.4-10.4); PLATELET COUNT 61 x10^3/uL (130-400); RED BLOOD COUNT 3.22 x10^6/uL (3.82-5.3)
[2018-07-11 19:53] LABS: MD YES
[2018-07-11 19:54] LABS: RED CELL DISTRIBUTION WIDTH 15.8 % (9.6-15.2)
[2018-07-11] MEDS ORDERED: DEXTROSE 50%, 50ML SYRINGE IVPush ONE (20:00)
[2018-07-11 20:02] LABS: BANDS%(MANUAL) 51 % (0-7); EOS#(MANUAL) 0.15 x10^3/uL (0.0-0.4); EOS% (MANUAL) 1 % (1-7); LYMPH#(MANUAL) 1.49 x10^3/uL (1-3.4); LYMPHS% (MANUAL) 10 % (22-44); METAMYELOCYTES# (MANUAL) 0.15 x10^3/uL (0-0); METAMYELOCYTES% (MANUAL) 1 % (0-1); MONOS% (MANUAL) 4 % (2-9); SEG#(MANUAL) 4.92 x10^3/uL (1.8-6.8); SEGS% (MANUAL) 33 % (42-75)
[2018-07-11 20:03] LABS: <PLATELET ESTIMATE> DECREASED; <PLT MORPHOLOGY> NORMAL PLT MORPH; <RBC MORPHOLOGY> NORMAL; PMNS WITH VACUOLES 1+
[2018-07-11] MEDS ORDERED: VANCOMYCIN PER PHARMACY MC ONE (20:30)
[2018-07-11] MEDS ORDERED: CEFTRIAXONE PMX 1GM/50ML 50 ML IVPB ONE (20:30)
[2018-07-11] MEDS ORDERED: CEFTRIAXONE PMX 1GM/50ML 50 ML ONE (20:33)
[2018-07-11] MEDS: NOREPINEPHRINE 4 MG in SODIUM CHLORIDE 0.9% 246 ML IV PRN (20:47)
[2018-07-11] MEDS ORDERED: VANCOMYCIN PMX 1GM/200ML 200 ML IVPB ONE (21:00)
[2018-07-11] MEDS ORDERED: SODIUM CHLORIDE FLUSH 10ML SYR IVF PRN (21:00)
[2018-07-11] MEDS ORDERED: ONDANSETRON ODT 4 MG PO PRN (22:00)
[2018-07-11] MEDS ORDERED: LEVOFLOXACIN/PMX 750MG/150ML 150 ML IV ONE (22:00)
[2018-07-11] MEDS ORDERED: ONDANSETRON 2MG/ML, 2ML IVPush PRN (22:00)
[2018-07-11] MEDS ORDERED: ALBUMIN HUMAN 25% 50 ML IV SCH (22:00)
[2018-07-11] MEDS ORDERED: SODIUM BICARBONATE 8.4% 150 MEQ in DEXTROSE 5% 1,000 ML IV SCH (22:00)
[2018-07-11 23:07] LABS: D-DIMER (DIC) 2.17 ug/mlFEU (0.00-0.52)
[2018-07-11] MEDS: HEPARIN 5,000 UNITS/ML, 1ML SQ SCH (23:48)
[2018-07-12] MEDS ORDERED: DEXTROSE 50%, 50ML SYRINGE ONE (00:29)
[2018-07-12] MEDS: DEXTROSE 50%, 50ML SYRINGE IVPush PRN ×4 (00:38→05:21)
[2018-07-12] MEDS ORDERED: GLUCAGON 1 MG IM PRN (01:00)
[2018-07-12] MEDS ORDERED: DEXTROSE 4 GM TAB.CHEW PO PRN (01:00)
[2018-07-12 01:36] VITALS: BP 98/48
[2018-07-12] MEDS: NOREPINEPHRINE 4 MG in SODIUM CHLORIDE 0.9% 246 ML IV PRN ×3 (02:47→09:20)
[2018-07-12] MEDS ORDERED: DEXTROSE 10% 1,000 ML IV SCH (04:30)
[2018-07-12] MEDS ORDERED: ALBUTEROL/IPRATROPIUM 2.5MG/0.5MG, 3 ML ONE (04:52)
[2018-07-12] MEDS: ALBUTEROL/IPRATROPIUM 2.5MG/0.5MG, 3 ML NPPB SCH ×4 (05:21→20:36)
[2018-07-12 05:27] LABS: MEAN CORPUSCULAR HEMOGLOBIN 33.9 pg (27.0-34.8); MEAN CORPUSCULAR HGB CONC 33.7 g/dL (32.4-35.8); MEAN CORPUSCULAR VOLUME 100.6 fL (80-100); RED BLOOD COUNT 2.98 x10^6/uL (3.82-5.3); RED CELL DISTRIBUTION WIDTH 16.5 % (9.6-15.2)
[2018-07-12 05:33] LABS: CHLORIDE 117 mmol/L (98-107)
[2018-07-12 05:43] LABS: ALANINE AMINOTRANSFERASE 13 U/L (12-78); ALKALINE PHOSPHATASE 69 U/L (45-117); ANION GAP 14 mmol/L (5-15); BILIRUBIN,TOTAL 0.2 mg/dL (0.2-1.0); CALCIUM 6.9 mg/dL (8.5-10.1); CREATININE 2.85 mg/dL (0.55-1.02)
[2018-07-12 05:45] LABS: MEAN PLATELET VOLUME 7.9 fL (7.4-10.4); PLATELET COUNT 62 x10^3/uL (130-400)
[2018-07-12 05:46] LABS: MD YES
[2018-07-12 05:48] LABS: BAND#(MANUAL) 2.47 x10^3/uL; BANDS%(MANUAL) 29 % (0-7); LYMPH#(MANUAL) 0.94 x10^3/uL (1-3.4); LYMPHS% (MANUAL) 11 % (22-44); METAMYELOCYTES# (MANUAL) 0.09 x10^3/uL (0-0); METAMYELOCYTES% (MANUAL) 1 % (0-1); MONOS#(MANUAL) 0.34 x10^3/uL (0.3-2.7); MONOS% (MANUAL) 4 % (2-9); SEG#(MANUAL) 4.68 x10^3/uL (1.8-6.8); SEGS% (MANUAL) 55 % (42-75)
[2018-07-12 05:49] LABS: ANISOCYTOSIS 1+; PMNS WITH VACUOLES 1+
[2018-07-12 05:50] LABS: <PLATELET ESTIMATE> DECREASED; <PLT MORPHOLOGY> NORMAL PLT MORPH
[2018-07-12] MEDS ORDERED: MAGNESIUM SULFATE 4 GM in SODIUM CHLORIDE 0.9% 100 ML IV ONE (08:00)
[2018-07-12] MEDS: HEPARIN 5,000 UNITS/ML, 1ML SQ SCH ×2 (08:00→08:39)
[2018-07-12] MEDS: SODIUM ACETATE 150 MEQ in DEXTROSE 5% 1,000 ML IV SCH ×2 (08:02→16:51)
[2018-07-12] MEDS: ZIPRASIDONE 20 MG INJ IM PRN ×2 (08:38→22:46)
[2018-07-12] MEDS ORDERED: VANCOMYCIN PER PHARMACY MC PRN (09:00)
[2018-07-12] MEDS ORDERED: PHARMACOKINETIC MONITORING MC PRN (09:30)
[2018-07-12] MEDS ORDERED: PHARMACOKINETIC CONSULTATION MC ONE (09:30)
[2018-07-12] MEDS ORDERED: MEROPENEM 1 GM in SODIUM CHLORIDE 0.9% 100 ML IV SCH (09:30)
[2018-07-12] MEDS: NOREPINEPHRINE 8 MG in SODIUM CHLORIDE 0.9% 242 ML IV PRN (12:00)
[2018-07-12] MEDS: SODIUM CHLORIDE FLUSH 10ML SYR IVF SCH ×2 (12:00→21:26)
[2018-07-12] MEDS: LEVETIRACETAM 1,000 MG in SODIUM CHLORIDE 0.9% 100 ML IV SCH (12:00)
[2018-07-12] MEDS: LEVOTHYROXINE 100 MCG INJ IVPush SCH (12:00)
[2018-07-12] MEDS ORDERED: VALPROIC ACID 250 MG CAPSULE PO SCH (21:00)
[2018-07-12] MEDS: ZONISAMIDE 50 MG CAPSULE PO SCH (21:26)
[2018-07-12] MEDS: MEROPENEM 500 MG in SODIUM CHLORIDE 0.9% 100 ML IV SCH (21:38)
[2018-07-12] MEDS: VALPROATE SODIUM 250 MG/5 ML ORAL SOLN PO SCH (21:53)
[2018-07-12] MEDS ORDERED: SODIUM BICARBONATE 8.4% 150 MEQ in DEXTROSE 5% 1,000 ML IV SCH (22:00)
[2018-07-13] MEDS: LEVETIRACETAM 1,000 MG in SODIUM CHLORIDE 0.9% 100 ML IV SCH ×3 (00:08→23:04)
[2018-07-13] MEDS: NOREPINEPHRINE 8 MG in SODIUM CHLORIDE 0.9% 242 ML IV PRN (01:26)
[2018-07-13] MEDS: SODIUM ACETATE 150 MEQ in DEXTROSE 5% 1,000 ML IV SCH (01:27)
[2018-07-13 05:11] LABS: MEAN CORPUSCULAR HEMOGLOBIN 34.6 pg (27.0-34.8); MEAN CORPUSCULAR HGB CONC 35.1 g/dL (32.4-35.8); MEAN CORPUSCULAR VOLUME 98.8 fL (80-100); RED BLOOD COUNT 2.92 x10^6/uL (3.82-5.3); RED CELL DISTRIBUTION WIDTH 15.9 % (9.6-15.2)
[2018-07-13 05:14] LABS: CHLORIDE 112 mmol/L (98-107)
[2018-07-13 05:18] LABS: MEAN PLATELET VOLUME 8.2 fL (7.4-10.4); PLATELET COUNT 52 x10^3/uL (130-400)
[2018-07-13 05:30] LABS: ALANINE AMINOTRANSFERASE 13 U/L (12-78); ALBUMIN 1.5 g/dL (3.4-5.0); ALKALINE PHOSPHATASE 75 U/L (45-117); ANION GAP 11 mmol/L (5-15); BILIRUBIN,TOTAL 0.2 mg/dL (0.2-1.0); CALCIUM 7.1 mg/dL (8.5-10.1); CREATININE 2.26 mg/dL (0.55-1.02); TOTAL PROTEIN 5.5 g/dL (6.4-8.2); VANCOMYCIN,RANDOM 11.7 mcg/mL
[2018-07-13 05:36] LABS: MD YES
[2018-07-13 06:03] LABS: <PLATELET ESTIMATE> DECREASED; <PLT MORPHOLOGY> NORMAL PLT MORPH; <RBC MORPHOLOGY> NORMAL; BAND#(MANUAL) 4.45 x10^3/uL; BANDS%(MANUAL) 28 % (0-7); LYMPH#(MANUAL) 0.95 x10^3/uL (1-3.4); LYMPHS% (MANUAL) 6 % (22-44); SEG#(MANUAL) 10.49 x10^3/uL (1.8-6.8); SEGS% (MANUAL) 66 % (42-75)
[2018-07-13] MEDS: ALBUTEROL/IPRATROPIUM 2.5MG/0.5MG, 3 ML NPPB SCH ×4 (07:20→19:06)
[2018-07-13] MEDS ORDERED: POTASSIUM CHLORIDE 10% 40 MEQ/30 ML UDC PO ONE ×2 (08:30→13:00)
[2018-07-13] MEDS: ASPIRIN 81 MG TABLET EC PO SCH (09:00)
[2018-07-13] MEDS ORDERED: VANCOMYCIN PMX 1GM/200ML 200 ML IV ONE (09:00)
[2018-07-13] MEDS: MEROPENEM 500 MG in SODIUM CHLORIDE 0.9% 100 ML IV SCH ×2 (09:14→22:10)
[2018-07-13] MEDS: VALPROATE SODIUM 250 MG/5 ML ORAL SOLN PO SCH ×2 (09:14→20:46)
[2018-07-13] MEDS: LEVOTHYROXINE 100 MCG INJ IVPush SCH (09:15)
[2018-07-13] MEDS: SODIUM CHLORIDE FLUSH 10ML SYR IVF SCH ×2 (09:15→20:46)
[2018-07-13] MEDS: D5%-0.45NACL+KCL 40MEQ 1,000 ML IV SCH ×2 (09:17→18:31)
[2018-07-13] MEDS: LINEZOLID PMX 600MG/300ML 300 ML IV SCH ×2 (11:01→23:41)
[2018-07-13] MEDS ORDERED: SODIUM CHLORIDE 0.9%, 500ML IVBOLUS ONE (13:30)
[2018-07-13 16:30] LABS: ANION GAP 7 mmol/L (5-15); CALCIUM 7.1 mg/dL (8.5-10.1); CHLORIDE 116 mmol/L (98-107); CREATININE 1.76 mg/dL (0.55-1.02)
[2018-07-13] MEDS ORDERED: POTASSIUM CHLORIDE 20 MEQ in DEXTROSE 5% 1,000 ML IV SCH (19:30)
[2018-07-13] MEDS: ZONISAMIDE 50 MG CAPSULE PO SCH (20:46)
[2018-07-14 04:52] LABS: ALANINE AMINOTRANSFERASE 12 U/L (12-78); ALBUMIN 1.3 g/dL (3.4-5.0); ANION GAP 7 mmol/L (5-15); CALCIUM 7.5 mg/dL (8.5-10.1); CHLORIDE 113 mmol/L (98-107); CREATININE 1.47 mg/dL (0.55-1.02)
[2018-07-14 04:54] LABS: ALKALINE PHOSPHATASE 79 U/L (45-117); BILIRUBIN,TOTAL 0.3 mg/dL (0.2-1.0); TOTAL PROTEIN 4.9 g/dL (6.4-8.2)
[2018-07-14 05:34] LABS: MEAN CORPUSCULAR HEMOGLOBIN 34.2 pg (27.0-34.8); MEAN CORPUSCULAR HGB CONC 34.7 g/dL (32.4-35.8); MEAN CORPUSCULAR VOLUME 98.4 fL (80-100); MEAN PLATELET VOLUME 8.3 fL (7.4-10.4); PLATELET COUNT 50 x10^3/uL (130-400); RED BLOOD COUNT 2.56 x10^6/uL (3.82-5.3); RED CELL DISTRIBUTION WIDTH 16.4 % (9.6-15.2)
[2018-07-14 05:35] LABS: MD YES
[2018-07-14 05:36] LABS: BAND#(MANUAL) 1.47 x10^3/uL; BANDS%(MANUAL) 10 % (0-7); EOS#(MANUAL) 0.44 x10^3/uL (0.0-0.4); EOS% (MANUAL) 3 % (1-7); LYMPH#(MANUAL) 1.03 x10^3/uL (1-3.4); LYMPHS% (MANUAL) 7 % (22-44); MONOS#(MANUAL) 0.74 x10^3/uL (0.3-2.7); MONOS% (MANUAL) 5 % (2-9); SEG#(MANUAL) 11.03 x10^3/uL (1.8-6.8); SEGS% (MANUAL) 75 % (42-75)
[2018-07-14 05:37] LABS: ANISOCYTOSIS 1+
[2018-07-14 05:38] LABS: <PLATELET ESTIMATE> DECREASED; <PLT MORPHOLOGY> NORMAL PLT MORPH
[2018-07-14] MEDS ORDERED: SODIUM PHOSPHATE 10 MMOL in SODIUM CHLORIDE 0.9% 500 ML IV ONE (06:30)
[2018-07-14] MEDS ORDERED: MAGNESIUM SULFATE PMX 4GM/100M 100 ML IVPB ONE (07:00)
[2018-07-14] MEDS: ALBUTEROL/IPRATROPIUM 2.5MG/0.5MG, 3 ML NPPB SCH ×4 (07:40→18:50)
[2018-07-14] MEDS: MEROPENEM 500 MG in SODIUM CHLORIDE 0.9% 100 ML IV SCH ×2 (08:55→19:59)
[2018-07-14] MEDS: THIAMINE 200 MG in SODIUM CHLORIDE 0.9% 50 ML IV SCH (08:55)
[2018-07-14] MEDS: ASPIRIN 81 MG TABLET EC PO SCH (08:55)
[2018-07-14] MEDS: NOREPINEPHRINE 8 MG in SODIUM CHLORIDE 0.9% 242 ML IV PRN (08:56)
[2018-07-14] MEDS ORDERED: ALBUMIN HUMAN 25% 100 ML IV ONE (09:00)
[2018-07-14] MEDS ORDERED: SODIUM CHLORIDE 0.9%, 500ML IVBOLUS ONE (09:00)
[2018-07-14] MEDS: ALBUMIN HUMAN 25% 100 ML IV SCH ×2 (09:17→19:59)
[2018-07-14] MEDS: SODIUM CHLORIDE FLUSH 10ML SYR IVF SCH ×2 (09:17→20:00)
[2018-07-14] MEDS: VALPROATE SODIUM 250 MG/5 ML ORAL SOLN PO SCH ×2 (09:18→20:00)
[2018-07-14] MEDS: LEVOTHYROXINE 100 MCG INJ IVPush SCH (09:18)
[2018-07-14] MEDS: LINEZOLID PMX 600MG/300ML 300 ML IV SCH ×2 (10:58→22:41)
[2018-07-14] MEDS: LEVETIRACETAM 1,000 MG in SODIUM CHLORIDE 0.9% 100 ML IV SCH (12:42)
[2018-07-14] MEDS: ZONISAMIDE 50 MG CAPSULE PO SCH (19:59)
[2018-07-15] MEDS: LEVETIRACETAM 1,000 MG in SODIUM CHLORIDE 0.9% 100 ML IV SCH ×2 (00:53→12:42)
[2018-07-15 05:00] LABS: ALANINE AMINOTRANSFERASE 14 U/L (12-78); ALBUMIN 2.1 g/dL (3.4-5.0); ANION GAP 6 mmol/L (5-15); CALCIUM 8.2 mg/dL (8.5-10.1); CHLORIDE 114 mmol/L (98-107); CREATININE 1.21 mg/dL (0.55-1.02)
[2018-07-15 05:03] LABS: ALKALINE PHOSPHATASE 83 U/L (45-117); BILIRUBIN,TOTAL 0.4 mg/dL (0.2-1.0); TOTAL PROTEIN 5.3 g/dL (6.4-8.2)
[2018-07-15 06:21] LABS: MEAN CORPUSCULAR HEMOGLOBIN 34.1 pg (27.0-34.8); MEAN CORPUSCULAR HGB CONC 34.3 g/dL (32.4-35.8); MEAN CORPUSCULAR VOLUME 99.4 fL (80-100); MEAN PLATELET VOLUME 8.9 fL (7.4-10.4); RED BLOOD COUNT 2.39 x10^6/uL (3.82-5.3); RED CELL DISTRIBUTION WIDTH 15.6 % (9.6-15.2)
[2018-07-15 06:22] LABS: MD YES
[2018-07-15 06:23] LABS: PLATELET COUNT 21 x10^3/uL (130-400)
[2018-07-15 06:24] LABS: BAND#(MANUAL) 0.28 x10^3/uL; BANDS%(MANUAL) 2 % (0-7); EOS% (MANUAL) 5 % (1-7); LYMPH#(MANUAL) 1.67 x10^3/uL (1-3.4); LYMPHS% (MANUAL) 12 % (22-44); MONOS#(MANUAL) 0.28 x10^3/uL (0.3-2.7); MONOS% (MANUAL) 2 % (2-9); MYELOCYTES# (MANUAL) 0.14 x10^3/uL (0-0); MYELOCYTES% (MANUAL) 1 % (0-0); SEG#(MANUAL) 10.84 x10^3/uL (1.8-6.8); SEGS% (MANUAL) 78 % (42-75)
[2018-07-15 06:25] LABS: <PLATELET ESTIMATE> DECREASED; <PLT MORPHOLOGY> NORMAL PLT MORPH; ANISOCYTOSIS 1+; POLYCHROMASIA 1+; SPHEROCYTES 1+
[2018-07-15] MEDS: ALBUTEROL/IPRATROPIUM 2.5MG/0.5MG, 3 ML NPPB SCH ×4 (07:25→18:25)
[2018-07-15] MEDS ORDERED: ASPIRIN 81 MG TABLET CHEW PO SCH (09:00)
[2018-07-15] MEDS: THIAMINE 200 MG in SODIUM CHLORIDE 0.9% 50 ML IV SCH (09:13)
[2018-07-15] MEDS: VALPROATE SODIUM 250 MG/5 ML ORAL SOLN PO SCH ×2 (09:14→21:03)
[2018-07-15] MEDS: ALBUMIN HUMAN 25% 100 ML IV SCH ×2 (09:14→20:49)
[2018-07-15] MEDS: LEVOTHYROXINE 100 MCG INJ IVPush SCH (09:14)
[2018-07-15] MEDS: SODIUM CHLORIDE FLUSH 10ML SYR IVF SCH ×2 (09:15→20:49)
[2018-07-15] MEDS: MEROPENEM 1 GM in SODIUM CHLORIDE 0.9% 100 ML IVPB SCH ×2 (09:15→20:50)
[2018-07-15] MEDS ORDERED: VALPROIC ACID 250 MG CAPSULE PO ONE (10:00)
[2018-07-15] MEDS ORDERED: VALPROATE SODIUM 250 MG/5 ML ORAL SOLN ONE (12:40)
[2018-07-15] MEDS: LINEZOLID PMX 600MG/300ML 300 ML IV SCH ×2 (12:42→23:28)
[2018-07-15] MEDS ORDERED: VALPROATE SODIUM 250 MG/5 ML ORAL SOLN PO SCH (13:00)
[2018-07-15] MEDS ORDERED: VALPROATE SODIUM 250 MG/5 ML ORAL SOLN PO ONE (13:00)
[2018-07-15] MEDS: ZONISAMIDE 50 MG CAPSULE PO SCH (21:04)
[2018-07-16] MEDS: LEVETIRACETAM 1,000 MG in SODIUM CHLORIDE 0.9% 100 ML IV SCH ×2 (00:42→13:33)
[2018-07-16] MEDS: LEVOTHYROXINE 125 MCG TABLET PO SCH (04:08)
[2018-07-16 04:46] LABS: CHLORIDE 114 mmol/L (98-107)
[2018-07-16 05:05] LABS: ALANINE AMINOTRANSFERASE 13 U/L (12-78); ALBUMIN 2.6 g/dL (3.4-5.0); ALKALINE PHOSPHATASE 74 U/L (45-117); ANION GAP 6 mmol/L (5-15); BILIRUBIN,TOTAL 0.7 mg/dL (0.2-1.0); CALCIUM 8.4 mg/dL (8.5-10.1); CREATININE 1.06 mg/dL (0.55-1.02); T4 (THYROXINE) 4.5 mcg/dL (4.8-13.9); TOTAL PROTEIN 5.4 g/dL (6.4-8.2)
[2018-07-16 05:52] LABS: MEAN CORPUSCULAR VOLUME 99.9 fL (80-100); MEAN PLATELET VOLUME 8.9 fL (7.4-10.4); RED CELL DISTRIBUTION WIDTH 16.1 % (9.6-15.2)
[2018-07-16 05:54] LABS: PLATELET COUNT 18 x10^3/uL (130-400)
[2018-07-16 05:55] LABS: MD YES
[2018-07-16 05:56] LABS: BAND#(MANUAL) 0.12 x10^3/uL; BANDS%(MANUAL) 1 % (0-7); EOS#(MANUAL) 0.48 x10^3/uL (0.0-0.4); EOS% (MANUAL) 4 % (1-7); LYMPH#(MANUAL) 1.19 x10^3/uL (1-3.4); LYMPHS% (MANUAL) 10 % (22-44); MONOS#(MANUAL) 0.48 x10^3/uL (0.3-2.7); MONOS% (MANUAL) 4 % (2-9); SEG#(MANUAL) 9.64 x10^3/uL (1.8-6.8); SEGS% (MANUAL) 81 % (42-75)
[2018-07-16 05:58] LABS: ANISOCYTOSIS 1+
[2018-07-16 05:59] LABS: <PLATELET ESTIMATE> DECREASED; <PLT MORPHOLOGY> NORMAL PLT MORPH
[2018-07-16] MEDS ORDERED: MAGNESIUM SULFATE IN WATER 50 ML IVPB ONE (06:30)
[2018-07-16 06:46] LABS: FREE T4 (FREE THYROXINE) 0.72 ng/dL (0.76-1.46); THYROID STIMULATING HORMONE 4.51 mIU/L (0.358-3.740)
[2018-07-16] MEDS ORDERED: MAGNESIUM SULFATE PMX 4GM/100M 100 ML IVPB ONE (07:00)
[2018-07-16] MEDS: ALBUTEROL/IPRATROPIUM 2.5MG/0.5MG, 3 ML NPPB SCH ×4 (07:00→20:35)
[2018-07-16] MEDS: MEROPENEM 1 GM in SODIUM CHLORIDE 0.9% 100 ML IVPB SCH ×2 (08:36→22:02)
[2018-07-16] MEDS: VALPROATE SODIUM 250 MG/5 ML ORAL SOLN PO SCH ×2 (08:36→20:28)
[2018-07-16] MEDS: SODIUM CHLORIDE FLUSH 10ML SYR IVF SCH ×2 (08:37→20:26)
[2018-07-16] MEDS: ALBUMIN HUMAN 25% 100 ML IV SCH ×2 (08:37→20:27)
[2018-07-16] MEDS: THIAMINE 200 MG in SODIUM CHLORIDE 0.9% 50 ML IV SCH (09:07)
[2018-07-16] MEDS: LINEZOLID PMX 600MG/300ML 300 ML IV SCH ×2 (11:47→23:26)
[2018-07-16] MEDS: SODIUM CHLORIDE 0.9% 1,000 ML IV SCH (15:37)
[2018-07-16] MEDS: ZONISAMIDE 50 MG CAPSULE PO SCH (20:28)
[2018-07-17] MEDS: LEVETIRACETAM 1,000 MG in SODIUM CHLORIDE 0.9% 100 ML IV SCH ×2 (00:21→12:17)
[2018-07-17 04:53] LABS: MEAN CORPUSCULAR HEMOGLOBIN 32.8 pg (27.0-34.8); MEAN CORPUSCULAR HGB CONC 32.5 g/dL (32.4-35.8); MEAN CORPUSCULAR VOLUME 100.8 fL (80-100); RED BLOOD COUNT 2.43 x10^6/uL (3.82-5.3); RED CELL DISTRIBUTION WIDTH 15.9 % (9.6-15.2)
[2018-07-17] MEDS: LEVOTHYROXINE 125 MCG TABLET PO SCH (05:25)
[2018-07-17 05:26] LABS: BASOPHILS # (AUTO) 0.03 x10^3/uL (0-0.1); BASOPHILS % (AUTO) 0 % (0-1); EOSINOPHILS # (AUTO) 0.51 x10^3/uL (0-0.4); EOSINOPHILS % (AUTO) 5 % (1-7); LYMPHOCYTES # (AUTO) 1.44 x10^3/uL (1-3.4); LYMPHOCYTES % (AUTO) 14 % (22-44); MD SCAN; MEAN PLATELET VOLUME 10.6 fL (7.4-10.4); MONOCYTES # (AUTO) 0.64 x10^3/uL (0.2-0.8); MONOCYTES % (AUTO) 6 % (2-9); NEUTROPHILS # (AUTO) 7.37 x10^3/uL (1.8-6.8); NEUTROPHILS % (AUTO) 74 % (42-75)
[2018-07-17] MEDS: SODIUM CHLORIDE 0.9% 1,000 ML IV SCH ×2 (05:26→15:19)
[2018-07-17 05:35] LABS: PLATELET COUNT 11 x10^3/uL (130-400)
[2018-07-17 06:12] LABS: ANION GAP 6 mmol/L (5-15); CALCIUM 8.4 mg/dL (8.5-10.1); CHLORIDE 113 mmol/L (98-107); CREATININE 1.06 mg/dL (0.55-1.02)
[2018-07-17 06:13] LABS: ALANINE AMINOTRANSFERASE 14 U/L (12-78)
[2018-07-17 06:15] LABS: ALKALINE PHOSPHATASE 70 U/L (45-117); BILIRUBIN,TOTAL 0.6 mg/dL (0.2-1.0)
[2018-07-17] MEDS: ALBUTEROL/IPRATROPIUM 2.5MG/0.5MG, 3 ML NPPB SCH (07:08)
[2018-07-17] MEDS: PANTOPRAZOLE 40 MG IV IVPush SCH (08:34)
[2018-07-17] MEDS: ALBUMIN HUMAN 25% 100 ML IV SCH ×2 (08:34→21:12)
[2018-07-17] MEDS: VALPROATE SODIUM 250 MG/5 ML ORAL SOLN PO SCH ×2 (08:34→21:12)
[2018-07-17] MEDS: SODIUM CHLORIDE FLUSH 10ML SYR IVF SCH ×2 (08:35→21:12)
[2018-07-17 08:59] VITALS: BP 150/74
[2018-07-17 09:10] VITALS: BP 150/74
[2018-07-17] MEDS: MEROPENEM 1 GM in SODIUM CHLORIDE 0.9% 100 ML IVPB SCH ×2 (09:53→22:38)
[2018-07-17] MEDS: THIAMINE 200 MG in SODIUM CHLORIDE 0.9% 50 ML IV SCH (09:54)
[2018-07-17 10:00] VITALS: BP 160/79
[2018-07-17] MEDS ORDERED: ALBUTEROL/IPRATROPIUM 2.5MG/0.5MG, 3 ML NPPB PRN (11:00)
[2018-07-17] MEDS: LINEZOLID PMX 600MG/300ML 300 ML IV SCH ×2 (11:14→23:12)
[2018-07-17] MEDS: ACETAMINOPHEN 325 MG TABLET PO PRN (12:58)
[2018-07-17] MEDS: ZONISAMIDE 50 MG CAPSULE PO SCH (21:13)
[2018-07-18] MEDS: LEVETIRACETAM 1,000 MG in SODIUM CHLORIDE 0.9% 100 ML IV SCH ×2 (01:35→11:36)
[2018-07-18] MEDS: SODIUM CHLORIDE 0.9% 1,000 ML IV SCH (06:25)
[2018-07-18] MEDS: LEVOTHYROXINE 125 MCG TABLET PO SCH (06:26)
[2018-07-18 08:37] LABS: CHLORIDE 114 mmol/L (98-107)
[2018-07-18 08:41] LABS: ANION GAP 9 mmol/L (5-15); CALCIUM 8.9 mg/dL (8.5-10.1); CREATININE 0.78 mg/dL (0.55-1.02)
[2018-07-18] MEDS: SODIUM CHLORIDE FLUSH 10ML SYR IVF SCH ×2 (09:00→22:05)
[2018-07-18] MEDS: ALBUMIN HUMAN 25% 100 ML IV SCH (09:46)
[2018-07-18] MEDS: PANTOPRAZOLE 40 MG IV IVPush SCH (09:47)
[2018-07-18] MEDS: VALPROATE SODIUM 250 MG/5 ML ORAL SOLN PO SCH ×2 (09:47→22:03)
[2018-07-18] MEDS: MEROPENEM 1 GM in SODIUM CHLORIDE 0.9% 100 ML IVPB SCH ×2 (09:47→22:03)
[2018-07-18] MEDS ORDERED: FUROSEMIDE 20 MG/2 ML IV STA (11:01)
[2018-07-18] MEDS: LINEZOLID PMX 600MG/300ML 300 ML IV SCH ×2 (11:35→23:24)
[2018-07-18] MEDS ORDERED: LIDOCAINE-MPF 1%, 2ML ONE (14:10)
[2018-07-18] MEDS: THIAMINE 200 MG in SODIUM CHLORIDE 0.9% 50 ML IV SCH (17:51)
[2018-07-18] MEDS ORDERED: MAGNESIUM SULFATE PMX 4GM/100M 100 ML IV ONE (20:00)
[2018-07-18] MEDS: ZONISAMIDE 50 MG CAPSULE PO SCH (22:04)
[2018-07-19] MEDS: LEVETIRACETAM 1,000 MG in SODIUM CHLORIDE 0.9% 100 ML IV SCH ×2 (00:42→13:42)
[2018-07-19 04:55] LABS: ALBUMIN 2.8 g/dL (3.4-5.0); ANION GAP 7 mmol/L (5-15); CALCIUM 7.9 mg/dL (8.5-10.1); CHLORIDE 113 mmol/L (98-107)
[2018-07-19 05:02] LABS: ALANINE AMINOTRANSFERASE 14 U/L (12-78); ALKALINE PHOSPHATASE 58 U/L (45-117); BILIRUBIN,TOTAL 0.5 mg/dL (0.2-1.0); CREATININE 0.81 mg/dL (0.55-1.02); TOTAL PROTEIN 5.4 g/dL (6.4-8.2)
[2018-07-19 05:21] LABS: MEAN CORPUSCULAR HEMOGLOBIN 32.6 pg (27.0-34.8); MEAN CORPUSCULAR HGB CONC 32.7 g/dL (32.4-35.8); MEAN CORPUSCULAR VOLUME 99.7 fL (80-100); MEAN PLATELET VOLUME 7.1 fL (7.4-10.4); PLATELET COUNT 66 x10^3/uL (130-400); RED BLOOD COUNT 1.97 x10^6/uL (3.82-5.3); RED CELL DISTRIBUTION WIDTH 16.1 % (9.6-15.2)
[2018-07-19 05:24] LABS: MD YES
[2018-07-19 05:29] LABS: ANISOCYTOSIS 1+; BAND#(MANUAL) 0.28 x10^3/uL; BANDS%(MANUAL) 4 % (0-7); EOS#(MANUAL) 0.69 x10^3/uL (0.0-0.4); EOS% (MANUAL) 10 % (1-7); LYMPH#(MANUAL) 1.52 x10^3/uL (1-3.4); LYMPHS% (MANUAL) 22 % (22-44); MONOS#(MANUAL) 0.35 x10^3/uL (0.3-2.7); MONOS% (MANUAL) 5 % (2-9); SEG#(MANUAL) 4.07 x10^3/uL (1.8-6.8); SEGS% (MANUAL) 59 % (42-75)
[2018-07-19 05:30] LABS: <PLATELET ESTIMATE> DECREASED; <PLT MORPHOLOGY> NORMAL PLT MORPH; SPHEROCYTES 1+
[2018-07-19] MEDS: LEVOTHYROXINE 125 MCG TABLET PO SCH (06:38)
[2018-07-19] MEDS: THIAMINE 200 MG in SODIUM CHLORIDE 0.9% 50 ML IV SCH (07:44)
[2018-07-19] MEDS ORDERED: FUROSEMIDE 40 MG/4 ML ONE (08:14)
[2018-07-19] MEDS: VALPROATE SODIUM 250 MG/5 ML ORAL SOLN PO SCH ×2 (08:21→20:53)
[2018-07-19] MEDS: MEROPENEM 1 GM in SODIUM CHLORIDE 0.9% 100 ML IVPB SCH ×2 (08:22→20:53)
[2018-07-19] MEDS: SODIUM CHLORIDE FLUSH 10ML SYR IVF SCH (08:22)
[2018-07-19] MEDS ORDERED: FUROSEMIDE 40 MG/4 ML IV ONE (08:30)
[2018-07-19] MEDS ORDERED: FUROSEMIDE 100 MG in SODIUM CHLORIDE 0.9% 90 ML IV SCH (09:30)
[2018-07-19] MEDS: DOXYCYCLINE 100 MG in DEXTROSE 5% 250 ML IV SCH ×2 (10:04→20:52)
[2018-07-19] MEDS: MIDODRINE 5 MG TABLET PO SCH ×3 (15:19→20:53)
[2018-07-19] MEDS: ZONISAMIDE 50 MG CAPSULE PO SCH (20:53)
[2018-07-20] MEDS: SODIUM CHLORIDE FLUSH 10ML SYR IVF SCH ×3 (00:26→22:06)
[2018-07-20] MEDS: LEVETIRACETAM 1,000 MG in SODIUM CHLORIDE 0.9% 100 ML IV SCH ×2 (00:27→13:03)
[2018-07-20 05:25] LABS: ANION GAP 5 mmol/L (5-15); CALCIUM 8.4 mg/dL (8.5-10.1); CHLORIDE 113 mmol/L (98-107); CREATININE 0.69 mg/dL (0.55-1.02)
[2018-07-20 05:28] LABS: MEAN CORPUSCULAR HEMOGLOBIN 33.2 pg (27.0-34.8); MEAN CORPUSCULAR HGB CONC 33.4 g/dL (32.4-35.8); MEAN CORPUSCULAR VOLUME 99.5 fL (80-100); MEAN PLATELET VOLUME 6.9 fL (7.4-10.4); PLATELET COUNT 70 x10^3/uL (130-400); RED BLOOD COUNT 2.11 x10^6/uL (3.82-5.3); RED CELL DISTRIBUTION WIDTH 15.7 % (9.6-15.2)
[2018-07-20 05:56] LABS: BASOPHILS # (AUTO) 0.04 x10^3/uL (0-0.1); BASOPHILS % (AUTO) 1 % (0-1); EOSINOPHILS # (AUTO) 0.54 x10^3/uL (0-0.4); EOSINOPHILS % (AUTO) 8 % (1-7); LYMPHOCYTES # (AUTO) 1.38 x10^3/uL (1-3.4); LYMPHOCYTES % (AUTO) 20 % (22-44); MD SCAN; MONOCYTES # (AUTO) 0.74 x10^3/uL (0.2-0.8); MONOCYTES % (AUTO) 11 % (2-9); NEUTROPHILS # (AUTO) 4.34 x10^3/uL (1.8-6.8); NEUTROPHILS % (AUTO) 62 % (42-75)
[2018-07-20] MEDS: LEVOTHYROXINE 125 MCG TABLET PO SCH (06:14)
[2018-07-20] MEDS ORDERED: FUROSEMIDE 20 MG/2 ML IV ONE (07:30)
[2018-07-20] MEDS: MIDODRINE 5 MG TABLET PO SCH ×2 (07:58→16:44)
[2018-07-20] MEDS: VALPROATE SODIUM 250 MG/5 ML ORAL SOLN PO SCH ×2 (08:00→20:44)
[2018-07-20] MEDS: MEROPENEM 1 GM in SODIUM CHLORIDE 0.9% 100 ML IVPB SCH ×2 (08:00→22:05)
[2018-07-20] MEDS: DOXYCYCLINE 100 MG in DEXTROSE 5% 250 ML IV SCH ×2 (09:24→22:42)
[2018-07-20] MEDS: LACTULOSE 20 GM/30 ML UDC NG SCH ×2 (09:24→20:43)
[2018-07-20 14:00] VITALS: BP 136/68
[2018-07-20 17:46] LABS: FREE T4 (FREE THYROXINE) 0.64 ng/dL (0.76-1.46); THYROID STIMULATING HORMONE 7.32 mIU/L (0.358-3.740)
[2018-07-20 19:45] VITALS: BP 144/61
[2018-07-20] MEDS: LIOTHYRONINE 5 MCG TABLET PO SCH (20:24)
[2018-07-20] MEDS: ZONISAMIDE 50 MG CAPSULE PO SCH (22:07)
[2018-07-21] MEDS: LEVETIRACETAM 1,000 MG in SODIUM CHLORIDE 0.9% 100 ML IV SCH ×2 (00:47→12:13)
[2018-07-21 02:02] LABS: CLOSTRIDIUM DIFFICILE ANTIGEN NEGATIVE; CLOSTRIDIUM DIFFICILE TOXIN NEGATIVE (Negative)
[2018-07-21] MEDS: LIOTHYRONINE 5 MCG TABLET PO SCH ×3 (03:42→19:48)
[2018-07-21 05:45] LABS: BASOPHILS # (AUTO) 0.03 x10^3/uL (0-0.1); BASOPHILS % (AUTO) 1 % (0-1); EOSINOPHILS # (AUTO) 0.52 x10^3/uL (0-0.4); EOSINOPHILS % (AUTO) 7 % (1-7); LYMPHOCYTES # (AUTO) 1.59 x10^3/uL (1-3.4); LYMPHOCYTES % (AUTO) 22 % (22-44); MD SCAN; MEAN CORPUSCULAR HEMOGLOBIN 33.4 pg (27.0-34.8); MEAN CORPUSCULAR HGB CONC 33.8 g/dL (32.4-35.8); MEAN CORPUSCULAR VOLUME 98.6 fL (80-100); MEAN PLATELET VOLUME 7.8 fL (7.4-10.4); MONOCYTES # (AUTO) 0.83 x10^3/uL (0.2-0.8); MONOCYTES % (AUTO) 11 % (2-9); NEUTROPHILS # (AUTO) 4.37 x10^3/uL (1.8-6.8); NEUTROPHILS % (AUTO) 60 % (42-75); PLATELET COUNT 65 x10^3/uL (130-400); RED BLOOD COUNT 2.37 x10^6/uL (3.82-5.3); RED CELL DISTRIBUTION WIDTH 15.6 % (9.6-15.2)
[2018-07-21] MEDS ORDERED: LEVOTHYROXINE 100 MCG INJ IVPush SCH (09:00)
[2018-07-21] MEDS: VALPROATE SODIUM 250 MG/5 ML ORAL SOLN PO SCH ×2 (09:39→21:49)
[2018-07-21] MEDS: LACTULOSE 20 GM/30 ML UDC NG SCH (09:39)
[2018-07-21] MEDS: CHOLESTYRAMINE LIGHT 4GM PACKET PO SCH ×2 (09:39→21:45)
[2018-07-21] MEDS: LEVOTHYROXINE 100 MCG INJ IVPush SCH (09:41)
[2018-07-21] MEDS: SODIUM CHLORIDE FLUSH 10ML SYR IVF SCH ×2 (09:41→21:49)
[2018-07-21] MEDS: MEROPENEM 1 GM in SODIUM CHLORIDE 0.9% 100 ML IVPB SCH ×2 (09:41→21:44)
[2018-07-21] MEDS: DOXYCYCLINE 100 MG in DEXTROSE 5% 250 ML IV SCH ×2 (09:42→22:37)
[2018-07-21] MEDS: ZONISAMIDE 50 MG CAPSULE PO SCH (21:49)
[2018-07-22] MEDS: LEVETIRACETAM 1,000 MG in SODIUM CHLORIDE 0.9% 100 ML IV SCH ×2 (00:54→12:02)
[2018-07-22] MEDS: LIOTHYRONINE 5 MCG TABLET PO SCH (03:12)
[2018-07-22 04:00] VITALS: BP 116/50
[2018-07-22 04:48] LABS: ANION GAP 8 mmol/L (5-15); CALCIUM 8.8 mg/dL (8.5-10.1); CHLORIDE 114 mmol/L (98-107); CREATININE 0.76 mg/dL (0.55-1.02)
[2018-07-22 04:59] LABS: FREE T4 (FREE THYROXINE) 0.98 ng/dL (0.76-1.46)
[2018-07-22] MEDS: LEVOTHYROXINE 100 MCG INJ IVPush SCH (06:23)
[2018-07-22 06:56] LABS: MEAN CORPUSCULAR HEMOGLOBIN 33.8 pg (27.0-34.8); MEAN CORPUSCULAR VOLUME 96.5 fL (80-100); RED BLOOD COUNT 1.93 x10^6/uL (3.82-5.3); RED CELL DISTRIBUTION WIDTH 15.6 % (9.6-15.2)
[2018-07-22 07:18] LABS: MEAN PLATELET VOLUME 7.2 fL (7.4-10.4); PLATELET COUNT 77 x10^3/uL (130-400)
[2018-07-22 07:28] LABS: BASOPHILS # (AUTO) 0.04 x10^3/uL (0-0.1); BASOPHILS % (AUTO) 1 % (0-1); EOSINOPHILS # (AUTO) 0.36 x10^3/uL (0-0.4); EOSINOPHILS % (AUTO) 6 % (1-7); LYMPHOCYTES # (AUTO) 1.42 x10^3/uL (1-3.4); LYMPHOCYTES % (AUTO) 24 % (22-44); MD SCAN; MONOCYTES # (AUTO) 0.78 x10^3/uL (0.2-0.8); MONOCYTES % (AUTO) 13 % (2-9); NEUTROPHILS % (AUTO) 56 % (42-75)
[2018-07-22 08:38] VITALS: BP 146/68
[2018-07-22 09:00] VITALS: BP 141/66
[2018-07-22] MEDS ORDERED: LIOTHYRONINE 5 MCG TABLET PO SCH (09:00)
[2018-07-22] MEDS: LACTULOSE 20 GM/30 ML UDC NG SCH (09:59)
[2018-07-22] MEDS: DOXYCYCLINE 100 MG in DEXTROSE 5% 250 ML IV SCH ×2 (09:59→21:20)
[2018-07-22] MEDS: SODIUM CHLORIDE FLUSH 10ML SYR IVF SCH ×2 (09:59→21:20)
[2018-07-22 10:00] VITALS: BP 151/63
[2018-07-22] MEDS: CHOLESTYRAMINE LIGHT 4GM PACKET PO SCH (10:00)
[2018-07-22] MEDS: VALPROATE SODIUM 250 MG/5 ML ORAL SOLN PO SCH (10:00)
[2018-07-22] MEDS: MEROPENEM 1 GM in SODIUM CHLORIDE 0.9% 100 ML IVPB SCH ×2 (10:00→21:19)
[2018-07-22] MEDS: ACETAMINOPHEN 325 MG TABLET PO PRN (10:27)
[2018-07-22 20:00] VITALS: BP 158/76
[2018-07-22] MEDS ORDERED: ASPIRIN 81 MG TABLET CHEW NG SCH (21:13)
[2018-07-22] MEDS ORDERED: DEXTROSE 4 GM TAB.CHEW NG PRN (21:30)
[2018-07-22] MEDS ORDERED: ONDANSETRON ODT 4 MG NG PRN (22:00)
[2018-07-22] MEDS: ZONISAMIDE 50 MG CAPSULE JT SCH (22:50)
[2018-07-22] MEDS: CHOLESTYRAMINE LIGHT 4GM PACKET NG SCH (22:51)
[2018-07-22] MEDS: VALPROATE SODIUM 250 MG/5 ML ORAL SOLN PO/NG SCH (22:51)
[2018-07-22] MEDS: LIOTHYRONINE 5 MCG TABLET NG SCH (22:51)
[2018-07-23] MEDS: LEVETIRACETAM 1,000 MG in SODIUM CHLORIDE 0.9% 100 ML IV SCH ×2 (00:09→12:10)
[2018-07-23 00:33] VITALS: BP 129/69
[2018-07-23] MEDS: LEVOTHYROXINE 100 MCG INJ IVPush SCH (05:01)
[2018-07-23 05:48] LABS: MEAN CORPUSCULAR HEMOGLOBIN 31.8 pg (27.0-34.8); MEAN CORPUSCULAR HGB CONC 34.1 g/dL (32.4-35.8); MEAN CORPUSCULAR VOLUME 93.4 fL (80-100); RED BLOOD COUNT 2.65 x10^6/uL (3.82-5.3); RED CELL DISTRIBUTION WIDTH 19.6 % (9.6-15.2)
[2018-07-23 05:52] LABS: CHLORIDE 112 mmol/L (98-107)
[2018-07-23 05:59] LABS: ANION GAP 8 mmol/L (5-15); CALCIUM 9.3 mg/dL (8.5-10.1); CREATININE 0.73 mg/dL (0.55-1.02)
[2018-07-23 06:37] LABS: MEAN PLATELET VOLUME 6.9 fL (7.4-10.4); PLATELET COUNT 107 x10^3/uL (130-400)
[2018-07-23 06:39] LABS: BASOPHILS # (AUTO) 0.07 x10^3/uL (0-0.1); BASOPHILS % (AUTO) 1 % (0-1); EOSINOPHILS % (AUTO) 8 % (1-7); LYMPHOCYTES # (AUTO) 1.98 x10^3/uL (1-3.4); LYMPHOCYTES % (AUTO) 26 % (22-44); MD SCAN; MONOCYTES # (AUTO) 1.02 x10^3/uL (0.2-0.8); MONOCYTES % (AUTO) 14 % (2-9); NEUTROPHILS # (AUTO) 3.86 x10^3/uL (1.8-6.8); NEUTROPHILS % (AUTO) 51 % (42-75)
[2018-07-23 07:21] VITALS: BP 132/73
[2018-07-23] MEDS: DOXYCYCLINE 100 MG in DEXTROSE 5% 250 ML IV SCH ×2 (08:30→21:17)
[2018-07-23] MEDS: SODIUM CHLORIDE FLUSH 10ML SYR IVF SCH ×2 (08:31→21:26)
[2018-07-23] MEDS: LIOTHYRONINE 5 MCG TABLET NG SCH ×2 (08:31→21:18)
[2018-07-23] MEDS: VALPROATE SODIUM 250 MG/5 ML ORAL SOLN PO/NG SCH ×2 (08:31→21:18)
[2018-07-23] MEDS: CHOLESTYRAMINE LIGHT 4GM PACKET NG SCH ×2 (08:32→21:26)
[2018-07-23] MEDS ORDERED: CHOLESTYRAMINE LIGHT 4GM PACKET NG SCH (09:00)
[2018-07-23] MEDS: LACTULOSE 20 GM/30 ML UDC NG SCH (09:00)
[2018-07-23] MEDS ORDERED: VALPROATE SODIUM 250 MG/5 ML ORAL SOLN GT SCH (09:00)
[2018-07-23] MEDS ORDERED: LIOTHYRONINE 5 MCG TABLET NG SCH (09:00)
[2018-07-23] MEDS: MEROPENEM 1 GM in SODIUM CHLORIDE 0.9% 100 ML IVPB SCH ×2 (10:08→22:30)
[2018-07-23 14:14] VITALS: BP 137/78
[2018-07-23 19:42] VITALS: BP 130/71
[2018-07-23] MEDS ORDERED: ZONISAMIDE 50 MG CAPSULE JT SCH (21:00)
[2018-07-23] MEDS: ZONISAMIDE 50 MG CAPSULE JT SCH (21:18)
[2018-07-24] MEDS: LEVETIRACETAM 1,000 MG in SODIUM CHLORIDE 0.9% 100 ML IV SCH ×2 (00:08→11:53)
[2018-07-24 00:39] VITALS: BP 112/61
[2018-07-24 01:35] VITALS: BP 121/90
[2018-07-24] MEDS: LEVOTHYROXINE 100 MCG INJ IVPush SCH (05:07)
[2018-07-24] MEDS: ACETAMINOPHEN 325 MG TABLET NG PRN (05:07)
[2018-07-24 06:11] LABS: FREE T4 (FREE THYROXINE) 1.89 ng/dL (0.76-1.46); THYROID STIMULATING HORMONE 2.71 mIU/L (0.358-3.740)
[2018-07-24 08:40] VITALS: BP 136/63
[2018-07-24] MEDS: CHOLESTYRAMINE LIGHT 4GM PACKET NG SCH ×2 (08:40→20:47)
[2018-07-24] MEDS: SODIUM CHLORIDE FLUSH 10ML SYR IVF SCH ×2 (08:40→20:47)
[2018-07-24] MEDS: VALPROATE SODIUM 250 MG/5 ML ORAL SOLN PO/NG SCH ×2 (08:40→20:47)
[2018-07-24] MEDS: DOXYCYCLINE 100 MG in DEXTROSE 5% 250 ML IV SCH ×2 (08:40→20:47)
[2018-07-24] MEDS: LIOTHYRONINE 5 MCG TABLET NG SCH ×2 (08:40→20:47)
[2018-07-24] MEDS: LACTULOSE 20 GM/30 ML UDC NG SCH (08:41)
[2018-07-24] MEDS: MEROPENEM 1 GM in SODIUM CHLORIDE 0.9% 100 ML IVPB SCH ×2 (10:19→22:29)
[2018-07-24 14:55] VITALS: BP 147/76
[2018-07-24] MEDS: ZONISAMIDE 50 MG CAPSULE JT SCH (20:47)
[2018-07-24 21:07] VITALS: BP 142/72
[2018-07-25 03:55] VITALS: BP 122/72
[2018-07-25] MEDS: LEVOTHYROXINE 100 MCG INJ IVPush SCH (05:25)
[2018-07-25] MEDS: ACETAMINOPHEN 325 MG TABLET NG PRN ×2 (05:25→21:10)
[2018-07-25 08:00] VITALS: BP 145/77
[2018-07-25] MEDS: LACTULOSE 20 GM/30 ML UDC NG SCH (09:00)
[2018-07-25] MEDS: SODIUM CHLORIDE FLUSH 10ML SYR IVF SCH ×2 (09:00→21:09)
[2018-07-25] MEDS: CHOLESTYRAMINE LIGHT 4GM PACKET NG SCH (09:00)
[2018-07-25] MEDS: LIOTHYRONINE 5 MCG TABLET NG SCH ×2 (09:00→21:07)
[2018-07-25] MEDS: VALPROATE SODIUM 250 MG/5 ML ORAL SOLN PO/NG SCH ×2 (10:42→21:07)
[2018-07-25] MEDS: MEROPENEM 1 GM in SODIUM CHLORIDE 0.9% 100 ML IVPB SCH ×2 (10:42→22:21)
[2018-07-25 12:14] VITALS: BP 144/82
[2018-07-25] MEDS: DOXYCYCLINE 100 MG in DEXTROSE 5% 250 ML IV SCH ×2 (12:16→21:09)
[2018-07-25] MEDS: LEVETIRACETAM 1,000 MG in SODIUM CHLORIDE 0.9% 100 ML IV SCH ×3 (14:41→23:48)
[2018-07-25 21:00] VITALS: BP 152/77
[2018-07-25] MEDS: ZONISAMIDE 50 MG CAPSULE JT SCH (21:08)
[2018-07-26 00:38] VITALS: BP 116/73
[2018-07-26] MEDS: ACETAMINOPHEN 325 MG TABLET NG PRN ×2 (04:36→21:04)
[2018-07-26] MEDS: LEVOTHYROXINE 100 MCG INJ IVPush SCH (05:21)
[2018-07-26 06:23] LABS: FREE T4 (FREE THYROXINE) 2.08 ng/dL (0.76-1.46); THYROID STIMULATING HORMONE 2.88 mIU/L (0.358-3.740)
[2018-07-26 07:40] VITALS: BP 136/63
[2018-07-26] MEDS: LACTULOSE 20 GM/30 ML UDC NG SCH (09:00)
[2018-07-26] MEDS: SODIUM CHLORIDE FLUSH 10ML SYR IVF SCH ×2 (11:02→21:03)
[2018-07-26] MEDS: DOXYCYCLINE 100 MG in DEXTROSE 5% 250 ML IV SCH (11:02)
[2018-07-26] MEDS: VALPROATE SODIUM 250 MG/5 ML ORAL SOLN PO/NG SCH ×2 (11:03→21:10)
[2018-07-26 13:00] VITALS: BP 135/73
[2018-07-26] MEDS: MEROPENEM 1 GM in SODIUM CHLORIDE 0.9% 100 ML IVPB SCH ×2 (13:23→21:42)
[2018-07-26] MEDS: LEVETIRACETAM 1,000 MG in SODIUM CHLORIDE 0.9% 100 ML IV SCH (15:16)
[2018-07-26 19:45] VITALS: BP 139/69
[2018-07-26] MEDS: ZONISAMIDE 50 MG CAPSULE JT SCH (21:03)
[2018-07-26] MEDS: DOXYCYCLINE 100MG CAP PO SCH (21:03)
[2018-07-27 00:08] VITALS: BP 134/71
[2018-07-27] MEDS: LEVETIRACETAM 1,000 MG in SODIUM CHLORIDE 0.9% 100 ML IV SCH ×2 (00:15→14:33)
[2018-07-27] MEDS: LEVOTHYROXINE 100 MCG INJ IVPush SCH (05:05)
[2018-07-27] MEDS: ACETAMINOPHEN 325 MG TABLET NG PRN (05:08)
[2018-07-27 08:03] VITALS: BP 131/63
[2018-07-27] MEDS: LACTULOSE 20 GM/30 ML UDC NG SCH (09:00)
[2018-07-27] MEDS ORDERED: DOXY100C2 PO (11:43)
[2018-07-27] MEDS ORDERED: LEVE100020 PO (11:43)
[2018-07-27] MEDS ORDERED: MERO1VIA15 IV (11:43)
[2018-07-27] MEDS ORDERED: VALP250S PO/NG (11:43)
[2018-07-27] MEDS: MEROPENEM 1 GM in SODIUM CHLORIDE 0.9% 100 ML IVPB SCH (12:11)
[2018-07-27] MEDS: DOXYCYCLINE 100MG CAP PO SCH (12:11)
[2018-07-27] MEDS: VALPROATE SODIUM 250 MG/5 ML ORAL SOLN PO/NG SCH (12:11)
[2018-07-27] MEDS: SODIUM CHLORIDE FLUSH 10ML SYR IVF SCH (12:12)
[2018-07-27 14:29] VITALS: BP 153/70
== END 2018-07-27 16:05 | DRG 871 ==
LOC: ED 18:42 → EDIP 20:44 → CCU 22:52 → 3NE 07-20 17:21 → CCU 07-20 21:05 → 4WST 07-22 18:06
PROVIDERS: ADMIT Hospitalist; ATTEND Hospitalist
PROC: 0T9B70Z Drainage of Bladder with Drainage Device, Via Natural or Artificial Opening (ICD-10-PCS; principal; 2018-07-11)
PROC: 02HV33Z Insertion of Infusion Device into Superior Vena Cava, Percutaneous Approach (ICD-10-PCS; 2018-07-11)
PROC: B548ZZA Ultrasonography of Superior Vena Cava, Guidance (ICD-10-PCS; 2018-07-11)
PROC: 30233R1 Transfusion of Nonautologous Platelets into Peripheral Vein, Percutaneous Approach (ICD-10-PCS; 2018-07-17)
PROC: 02HV33Z Insertion of Infusion Device into Superior Vena Cava, Percutaneous Approach (ICD-10-PCS; 2018-07-18)
PROC: B548ZZA Ultrasonography of Superior Vena Cava, Guidance (ICD-10-PCS; 2018-07-18)
PROC: 30233N1 Transfusion of Nonautologous Red Blood Cells into Peripheral Vein, Percutaneous Approach (ICD-10-PCS; 2018-07-22)
DX: A41.52 Sepsis due to Pseudomonas (principal); N17.0 Acute kidney failure with tubular necrosis; E03.5 Myxedema coma; E43 Unspecified severe protein-calorie malnutrition; G92 Toxic encephalopathy; J96.21 Acute and chronic respiratory failure with hypoxia; R65.21 Severe sepsis with septic shock; J69.0 Pneumonitis due to inhalation of food and vomit; J15.212 Pneumonia due to Methicillin resistant Staphylococcus aureus; I42.9 Cardiomyopathy, unspecified; G40.209 Localization-related (focal) (partial) symptomatic epilepsy and epileptic syndromes with complex partial seizures, not intractable, without status epilepticus; E72.20 Disorder of urea cycle metabolism, unspecified; E87.2 Acidosis; I13.0 Hypertensive heart and chronic kidney disease with heart failure and stage 1 through stage 4 chronic kidney disease, or unspecified chronic kidney disease; I69.354 Hemiplegia and hemiparesis following cerebral infarction affecting left non-dominant side; J44.0 Chronic obstructive pulmonary disease with (acute) lower respiratory infection; J98.11 Atelectasis; I50.30 Unspecified diastolic (congestive) heart failure; D69.6 Thrombocytopenia, unspecified; D53.9 Nutritional anemia, unspecified; E16.2 Hypoglycemia, unspecified; E78.00 Pure hypercholesterolemia, unspecified; F02.80 Dementia in other diseases classified elsewhere, unspecified severity, without behavioral disturbance, psychotic disturbance, mood disturbance, and anxiety; G30.9 Alzheimer's disease, unspecified; G24.01 Drug induced subacute dyskinesia; T43.595A Adverse effect of other antipsychotics and neuroleptics, initial encounter; I07.1 Rheumatic tricuspid insufficiency; I25.10 Atherosclerotic heart disease of native coronary artery without angina pectoris; J32.0 Chronic maxillary sinusitis; K21.9 Gastro-esophageal reflux disease without esophagitis; K52.9 Noninfective gastroenteritis and colitis, unspecified; K72.90 Hepatic failure, unspecified without coma; N18.9 Chronic kidney disease, unspecified; R13.10 Dysphagia, unspecified; R62.7 Adult failure to thrive; Z96.641 Presence of right artificial hip joint; Z51.5 Encounter for palliative care; T68.XXXA Hypothermia, initial encounter; B96.20 Unspecified Escherichia coli [E. coli] as the cause of diseases classified elsewhere; B96.5 Pseudomonas (aeruginosa) (mallei) (pseudomallei) as the cause of diseases classified elsewhere; Z66 Do not resuscitate; I25.2 Old myocardial infarction; Y92.89 Other specified places as the place of occurrence of the external cause; Z86.14 Personal history of Methicillin resistant Staphylococcus aureus infection; Z87.440 Personal history of urinary (tract) infections; Z88.0 Allergy status to penicillin; Z90.710 Acquired absence of both cervix and uterus; Z95.0 Presence of cardiac pacemaker; Z95.5 Presence of coronary angioplasty implant and graft; X31.XXXA Exposure to excessive natural cold, initial encounter; Z90.49 Acquired absence of other specified parts of digestive tract; Z88.8 Allergy status to other drugs, medicaments and biological substances; Z88.5 Allergy status to narcotic agent; Z79.899 Other long term (current) drug therapy; Z79.82 Long term (current) use of aspirin; A41.02 Sepsis due to Methicillin resistant Staphylococcus aureus
CPT/HCPCS: 36415; 36569; 70450; 71045; 74018; 74230; 76937; 77001; 80048; 80053; 80164; 80202; 80307; 80329; 81001; 82140; 82533; 82803; 82962; 83605; 83735; 83880; 84100; 84145; 84436; 84439; 84443; 84481; 84484; 85014; 85018; 85025; 85049; 85379; 85384; 85610; 85730; 86850; 86900; 86923; 87040; 87070; 87077; 87081; 87186; 87205; 87324; 93005; 93306; 94640; 95816; 95819; 96372; 96374; G0378; J0696; J1644; J1940; J1953; J1956; J2020; J2185; J3370; J3411; J3475; J3480; J3486; J7060; J7070; J7620; P9047; C1751; C9113; G0480; J7030; J7040; J7050; P9016; P9035

== ENCOUNTER 2018-08-15 11:01 | Inpatient (IN) | payer MEDICARE, OTHER ==
[~2018-08-15] VITALS: Ht 162.6 cm; Wt 53.6 kg
[~2018-08-15 11:01] MED LIST changes: +DOXY100C2 PO; +ETOMIDATE 20 MG/10 ML ONE; +LEVE100020 PO; +MERO1VIA15 IV; +MIDAZOLAM 1 MG/ML, 5ML ONE; +PROPOFOL 10 MG/ML, 100ML IV ONE; +SUCCINYLCHOLINE 20 MG/ML, 10ML ONE; +VALP250C59 PO; +VALP250S PO/NG
[2018-08-15] MEDS ORDERED: NALOXONE 0.4 MG/ML, 1ML ONE (11:06)
[2018-08-15] MEDS ORDERED: DEXTROSE 50%, 50ML SYRINGE ONE ×2 (11:07→18:44)
[2018-08-15] MEDS ORDERED: SUCCINYLCHOLINE 20 MG/ML, 10ML IVPush ONE (11:30)
[2018-08-15] MEDS ORDERED: SODIUM CHLORIDE 0.9% 1,000ML IVBOLUS ONE ×3 (11:30→16:00)
[2018-08-15] MEDS ORDERED: ETOMIDATE 20 MG/10 ML IVPush ONE ×2 (11:30)
[2018-08-15] MEDS ORDERED: NALOXONE 0.4 MG/ML, 1ML IVPush ONE (11:30)
[2018-08-15] MEDS ORDERED: PLEASE ENTER HEIGHT AND WEIGHT MC SCH (11:30)
[2018-08-15] MEDS ORDERED: MIDAZOLAM 1 MG/ML, 2ML IVPush ONE ×2 (11:30→14:00)
[2018-08-15] MEDS ORDERED: SODIUM CHLORIDE FLUSH 10ML SYR IVF ONE (11:30)
[2018-08-15] MEDS ORDERED: DEXTROSE 50%, 50ML SYRINGE IVPush ONE ×2 (11:30→19:00)
[2018-08-15] MEDS ORDERED: NOREPINEPHRINE 4 MG in SODIUM CHLORIDE 0.9% 246 ML IV PRN (11:44)
[2018-08-15] MEDS ORDERED: FENTANYL PF 100 MCG/2ML ONE (11:50)
--- NOTE | 2018-08-15 11:54 | NUR ---
Patient's daughter Rashida Maldonado called, phone number [phone] Patient's son Marcos Maldonado is POA, his number is [phone] Rashida has indicated that the patient has hx of epileptic seizures, had recent hospitalization in June, and is FULL CODE STATUS per Rashida.
[2018-08-15] MEDS: PROPOFOL 100 ML IV PRN (12:10)
[2018-08-15 12:22] LABS: INTERNATIONAL NORMALIZED RATIO 1.6 (0.93-1.1); PROTHROMBIN TIME 16.7 Seconds (9.6-11.5)
[2018-08-15 12:23] LABS: ALBUMIN 2.1 g/dL (3.4-5.0); ANION GAP 9 mmol/L (5-15); CALCIUM 7.6 mg/dL (8.5-10.1); CHLORIDE 118 mmol/L (98-107)
[2018-08-15 12:24] LABS: SALICYLATE LEVEL < 1.7 mg/dL (2.8-20.0)
[2018-08-15 12:26] LABS: ACETAMINOPHEN 4 mcg/mL (10-30); ALANINE AMINOTRANSFERASE 12 U/L (12-78); ALKALINE PHOSPHATASE 82 U/L (45-117); BILIRUBIN,TOTAL 0.9 mg/dL (0.2-1.0); CREATININE 2.06 mg/dL (0.55-1.02); TOTAL PROTEIN 5.3 g/dL (6.4-8.2); TROPONIN I < 0.015 ng/mL (0.000-0.045)
[2018-08-15 12:31] LABS: MICROSCOPIC INDICATED
[2018-08-15 12:32] LABS: FREE T4 (FREE THYROXINE) 1.12 ng/dL (0.76-1.46); THYROID STIMULATING HORMONE 0.515 mIU/L (0.358-3.740)
[2018-08-15 12:46] LABS: CULTURE INDICATED? YES
[2018-08-15 12:52] LABS: MD YES; MEAN CORPUSCULAR HEMOGLOBIN 32.2 pg (27.0-34.8); MEAN CORPUSCULAR HGB CONC 33.8 g/dL (32.4-35.8); MEAN CORPUSCULAR VOLUME 95.4 fL (80-100); MEAN PLATELET VOLUME 9.1 fL (7.4-10.4); PLATELET COUNT 59 x10^3/uL (130-400); RED BLOOD COUNT 2.58 x10^6/uL (3.82-5.3); RED CELL DISTRIBUTION WIDTH 20.3 % (9.6-15.2)
[2018-08-15] MEDS ORDERED: CEFTRIAXONE PMX 1GM/50ML 50 ML IV ONE (13:00)
[2018-08-15] MEDS ORDERED: SODIUM CHLORIDE 0.9% 1,000 ML IV ONE (13:00)
[2018-08-15] MEDS ORDERED: CEFTRIAXONE PMX 1GM/50ML 50 ML ONE (13:22)
[2018-08-15 13:37] LABS: ANISOCYTOSIS 2+; BANDS%(MANUAL) 28 % (0-7); LYMPH#(MANUAL) 0.61 x10^3/uL (1-3.4); LYMPHS% (MANUAL) 34 % (22-44); MICROCYTOSIS 1+; SEG#(MANUAL) 0.68 x10^3/uL (1.8-6.8); SEGS% (MANUAL) 38 % (42-75)
[2018-08-15 13:38] LABS: <PLATELET ESTIMATE> DECREASED; <PLT MORPHOLOGY> NORMAL PLT MORPH
[2018-08-15 13:56] LABS: AMPHETAMINE SCREEN, URINE Negative (Negative); BARBITURATE SCREEN, URINE Negative (Negative); BENZODIAZEPINE SCREEN, URINE Positive (Negative); CANNABINOID SCREEN, URINE Negative (Negative); COCAINE SCREEN, URINE Negative (Negative); METHADONE SCREEN, URINE Negative (Negative); OPIATE SCREEN, URINE Negative (Negative)
[2018-08-15] MEDS ORDERED: FENTANYL PF 100 MCG/2ML IV ONE (14:00)
[2018-08-15 14:18] VITALS: BP 104/40
--- NOTE | 2018-08-15 14:52 | NUR ---
LATE ENTRY FOR 1105 BIB [facility] FOUND UNRESPONSIVE IN [facility] LAST KNOWN NML 08/14 @ 1999. [facility] RPTS GCS = 6 A&0 X 0, FSBS = 93 AND BP 75/52, HR 67. 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 DR CARRERO AT BEDSIDE. PT ON MONITORS, RT AT BEDSIDE PREPARE FOR INTUBATION. LEFT TIBIA IO INSERTED AND NS INFUSING W.O.
--- NOTE | 2018-08-15 14:54 | NUR ---
LATE ENTRY FOR [address] WITH RN AND RT ESCORT. PT TOLLERATED WELL AND RTD TO ED VSS.
--- NOTE | 2018-08-15 14:54 | NUR ---
LATE ENTRY FOR 1250, DR MEJIA AT BEDSIDE. POC DISCUSSED.
[2018-08-15] MEDS ORDERED: LIDOCAINE-MPF 1%, 2ML ENDO PRN (16:00)
[2018-08-15] MEDS ORDERED: SENNA/DOCUSATE TABLET NG PRN (16:00)
[2018-08-15] MEDS ORDERED: SENNOSIDES 8.8 MG/5 ML ORAL SOL NG PRN (16:00)
[2018-08-15] MEDS ORDERED: PHARMACY MAY ADJ FOR RENAL FX MC SCH (16:00)
[2018-08-15] MEDS ORDERED: SODIUM CHLORIDE 0.9% 1,000 ML IV SCH (16:00)
[2018-08-15] MEDS ORDERED: LACTULOSE 20 GM/30 ML UDC NG PRN (16:00)
[2018-08-15] MEDS ORDERED: BISACODYL 10 MG SUPP PR PRN ×2 (16:00→18:30)
[2018-08-15] MEDS: MEROPENEM 1 GM in SODIUM CHLORIDE 0.9% 100 ML IV SCH (16:07)
[2018-08-15] MEDS: FAMOTIDINE 20 MG/2 ML IV SCH (16:09)
[2018-08-15] MEDS: NOREPINEPHRINE 4 MG in SODIUM CHLORIDE 0.9% 246 ML IV PRN ×2 (17:58→23:30)
[2018-08-15] MEDS: LINEZOLID PMX 600MG/300ML 300 ML IV SCH (17:58)
[2018-08-15 18:15] LABS: ALANINE AMINOTRANSFERASE 15 U/L (12-78); ALBUMIN 2.3 g/dL (3.4-5.0); ANION GAP 10 mmol/L (5-15); CALCIUM 7.4 mg/dL (8.5-10.1); CHLORIDE 125 mmol/L (98-107)
[2018-08-15 18:17] LABS: ALKALINE PHOSPHATASE 99 U/L (45-117); BILIRUBIN,TOTAL 0.9 mg/dL (0.2-1.0); TOTAL PROTEIN 5.9 g/dL (6.4-8.2)
[2018-08-15 18:23] LABS: MEAN CORPUSCULAR HEMOGLOBIN 32.6 pg (27.0-34.8); MEAN CORPUSCULAR HGB CONC 33.9 g/dL (32.4-35.8); MEAN CORPUSCULAR VOLUME 96.2 fL (80-100); MEAN PLATELET VOLUME 9.7 fL (7.4-10.4); PLATELET COUNT 90 x10^3/uL (130-400); RED BLOOD COUNT 2.95 x10^6/uL (3.82-5.3); RED CELL DISTRIBUTION WIDTH 20.3 % (9.6-15.2)
[2018-08-15] MEDS ORDERED: DOCUSATE 100 MG CAPSULE PO PRN (18:30)
[2018-08-15] MEDS: ALBUTEROL/IPRATROPIUM 2.5MG/0.5MG, 3 ML INLINE SCH ×2 (18:48→23:04)
[2018-08-15] MEDS ORDERED: MAGNESIUM SULFATE 4 GM in SODIUM CHLORIDE 0.9% 100 ML IV ONE (19:00)
[2018-08-15] MEDS ORDERED: POTASSIUM CHLORIDE 40 MEQ in SODIUM CHLORIDE 0.9% 100 ML IV ONE (19:00)
[2018-08-15] MEDS ORDERED: CALCIUM GLUCONATE 9.2 MEQ in SODIUM CHLORIDE 0.9% 100 ML IV ONE (19:00)
[2018-08-15] MEDS: FENTANYL PF 100 MCG/2ML IVPush PRN (19:56)
[2018-08-15] MEDS: SODIUM BICARBONATE 8.4% 150 MEQ in DEXTROSE 5% 1,000 ML IV SCH (21:03)
[2018-08-15] MEDS: LEVETIRACETAM 500 MG TABLET PO SCH (21:37)
[2018-08-15] MEDS: ZONISAMIDE 50 MG CAPSULE PO SCH (21:37)
[2018-08-15] MEDS: VALPROATE SODIUM 250 MG/5 ML ORAL SOLN PO/NG SCH (21:38)
[2018-08-15] MEDS ORDERED: DEXTROSE 4 GM TAB.CHEW PO PRN (23:30)
[2018-08-15] MEDS ORDERED: GLUCAGON 1 MG IM PRN (23:30)
[2018-08-15] MEDS ORDERED: DEXTROSE 50%, 50ML SYRINGE IVPush PRN (23:30)
[2018-08-15 23:48] LABS: MEAN CORPUSCULAR HEMOGLOBIN 32.7 pg (27.0-34.8); MEAN CORPUSCULAR HGB CONC 33.8 g/dL (32.4-35.8); MEAN CORPUSCULAR VOLUME 96.5 fL (80-100); MEAN PLATELET VOLUME 9.6 fL (7.4-10.4); PLATELET COUNT 94 x10^3/uL (130-400); RED BLOOD COUNT 3.07 x10^6/uL (3.82-5.3); RED CELL DISTRIBUTION WIDTH 20.5 % (9.6-15.2)
[2018-08-16] MEDS: MEROPENEM 1 GM in SODIUM CHLORIDE 0.9% 100 ML IV SCH ×3 (00:18→21:01)
[2018-08-16] MEDS ORDERED: SODIUM BICARBONATE 8.4% 150 MEQ in DEXTROSE 10% 1,000 ML IV SCH (03:00)
[2018-08-16] MEDS: NOREPINEPHRINE 4 MG in SODIUM CHLORIDE 0.9% 246 ML IV PRN ×2 (03:12→06:36)
[2018-08-16] MEDS: ALBUTEROL/IPRATROPIUM 2.5MG/0.5MG, 3 ML INLINE SCH ×5 (04:00→18:56)
[2018-08-16] MEDS: SODIUM BICARBONATE 8.4% 150 MEQ in DEXTROSE 5% 1,000 ML IV SCH ×3 (04:12→21:02)
[2018-08-16 04:49] LABS: MEAN CORPUSCULAR HEMOGLOBIN 32.4 pg (27.0-34.8); MEAN CORPUSCULAR HGB CONC 33.8 g/dL (32.4-35.8); MEAN CORPUSCULAR VOLUME 95.9 fL (80-100); MEAN PLATELET VOLUME 10.3 fL (7.4-10.4); PLATELET COUNT 88 x10^3/uL (130-400); RED BLOOD COUNT 2.98 x10^6/uL (3.82-5.3); RED CELL DISTRIBUTION WIDTH 20.6 % (9.6-15.2)
[2018-08-16 05:00] LABS: ANION GAP 10 mmol/L (5-15); CALCIUM 8.2 mg/dL (8.5-10.1); CHLORIDE 122 mmol/L (98-107)
[2018-08-16 05:05] LABS: ALANINE AMINOTRANSFERASE 15 U/L (12-78); ALKALINE PHOSPHATASE 106 U/L (45-117); BILIRUBIN,TOTAL 1.1 mg/dL (0.2-1.0); CREATININE 2.09 mg/dL (0.55-1.02); TOTAL PROTEIN 5.5 g/dL (6.4-8.2)
[2018-08-16 05:37] LABS: MD YES
[2018-08-16] MEDS: LINEZOLID PMX 600MG/300ML 300 ML IV SCH ×2 (05:42→16:31)
[2018-08-16] MEDS: LEVOTHYROXINE 125 MCG TABLET PO SCH (05:42)
[2018-08-16 05:44] LABS: BAND#(MANUAL) 3.77 x10^3/uL; BANDS%(MANUAL) 29 % (0-7); LYMPH#(MANUAL) 2.08 x10^3/uL (1-3.4); LYMPHS% (MANUAL) 16 % (22-44); METAMYELOCYTES# (MANUAL) 1.17 x10^3/uL (0-0); METAMYELOCYTES% (MANUAL) 9 % (0-1); MONOS#(MANUAL) 1.95 x10^3/uL (0.3-2.7); MONOS% (MANUAL) 15 % (2-9); NRBC % (MANUAL) 2 % (0-1); SEG#(MANUAL) 4.03 x10^3/uL (1.8-6.8); SEGS% (MANUAL) 31 % (42-75)
[2018-08-16] MEDS: FAMOTIDINE 20 MG/2 ML IV SCH (05:44)
[2018-08-16] MEDS: PROPOFOL 100 ML IV PRN (05:44)
[2018-08-16 05:47] LABS: ANISOCYTOSIS 1+
[2018-08-16 05:48] LABS: <PLATELET ESTIMATE> DECREASED; <PLT MORPHOLOGY> NORMAL PLT MORPH; PMNS WITH VACUOLES 1+
[2018-08-16] MEDS: VALPROATE SODIUM 250 MG/5 ML ORAL SOLN PO/NG SCH ×2 (08:53→21:02)
[2018-08-16] MEDS: LEVETIRACETAM 500 MG TABLET PO SCH ×2 (08:53→21:07)
[2018-08-16] MEDS: POTASSIUM CHLORIDE 20 MEQ PACKET PO SCH ×2 (08:53→21:08)
[2018-08-16] MEDS: SODIUM CHLORIDE FLUSH 10ML SYR IVF SCH ×2 (08:54→21:03)
[2018-08-16] MEDS ORDERED: VASOPRESSIN 100 UNIT in SODIUM CHLORIDE 0.9% 495 ML IV PRN (09:30)
[2018-08-16] MEDS ORDERED: VASOPRESSIN 50 UNIT in SODIUM CHLORIDE 0.9% 247.5 ML IV SCH (10:00)
[2018-08-16] MEDS: NOREPINEPHRINE 8 MG in SODIUM CHLORIDE 0.9% 242 ML IV PRN ×2 (10:17→21:02)
[2018-08-16] MEDS: HYDROCORTISONE 100 MG INJ. IVPush SCH ×2 (10:18→16:31)
[2018-08-16] MEDS: VASOPRESSIN 50 UNIT in SODIUM CHLORIDE 0.9% 247.5 ML IV PRN (11:17)
[2018-08-16] MEDS: ZONISAMIDE 50 MG CAPSULE PO SCH (21:08)
[2018-08-17] MEDS: ALBUTEROL/IPRATROPIUM 2.5MG/0.5MG, 3 ML INLINE SCH ×6 (02:06→18:52)
[2018-08-17] MEDS: HYDROCORTISONE 100 MG INJ. IVPush SCH ×3 (02:18→16:37)
[2018-08-17] MEDS: LINEZOLID PMX 600MG/300ML 300 ML IV SCH ×2 (05:17→16:38)
[2018-08-17] MEDS: VASOPRESSIN 50 UNIT in SODIUM CHLORIDE 0.9% 247.5 ML IV PRN (05:18)
[2018-08-17] MEDS: LEVOTHYROXINE 125 MCG TABLET PO SCH (05:18)
[2018-08-17 05:58] LABS: ANION GAP 12 mmol/L (5-15); CALCIUM 7.2 mg/dL (8.5-10.1); CHLORIDE 109 mmol/L (98-107); CREATININE 2.24 mg/dL (0.55-1.02)
[2018-08-17 06:01] LABS: MEAN CORPUSCULAR HEMOGLOBIN 32.1 pg (27.0-34.8); MEAN CORPUSCULAR VOLUME 94.7 fL (80-100); RED BLOOD COUNT 2.48 x10^6/uL (3.82-5.3); RED CELL DISTRIBUTION WIDTH 21.3 % (9.6-15.2)
[2018-08-17 06:23] LABS: MD YES
[2018-08-17 06:24] LABS: PLATELET COUNT 40 x10^3/uL (130-400)
[2018-08-17 06:29] LABS: <PLATELET ESTIMATE> DECREASED; <PLT MORPHOLOGY> NORMAL PLT MORPH; ANISOCYTOSIS 1+; BAND#(MANUAL) 7.29 x10^3/uL; BANDS%(MANUAL) 30 % (0-7); LYMPH#(MANUAL) 0.49 x10^3/uL (1-3.4); LYMPHS% (MANUAL) 2 % (22-44); METAMYELOCYTES# (MANUAL) 2.43 x10^3/uL (0-0); METAMYELOCYTES% (MANUAL) 10 % (0-1); MONOS#(MANUAL) 0.49 x10^3/uL (0.3-2.7); MONOS% (MANUAL) 2 % (2-9); SEG#(MANUAL) 13.61 x10^3/uL (1.8-6.8); SEGS% (MANUAL) 56 % (42-75)
[2018-08-17] MEDS ORDERED: FLUCONAZOLE 200 MG/100 ML 100 ML IV SCH (08:30)
[2018-08-17] MEDS: SODIUM CHLORIDE 0.9% 1,000 ML IV SCH ×2 (08:46→22:41)
[2018-08-17] MEDS: MEROPENEM 1 GM in SODIUM CHLORIDE 0.9% 100 ML IV SCH ×2 (08:46→21:06)
[2018-08-17] MEDS: VALPROATE SODIUM 250 MG/5 ML ORAL SOLN PO/NG SCH ×2 (08:47→21:07)
[2018-08-17] MEDS: SODIUM CHLORIDE FLUSH 10ML SYR IVF SCH ×2 (08:48→21:08)
[2018-08-17] MEDS ORDERED: FAMOTIDINE 20 MG/2 ML IV SCH (09:00)
[2018-08-17] MEDS: LEVETIRACETAM 500 MG TABLET PO SCH (10:03)
[2018-08-17] MEDS: METOCLOPRAMIDE 5 MG/ML, 2ML IVPush SCH ×3 (10:03→21:07)
[2018-08-17] MEDS: LEVETIRACETAM 500 MG in SODIUM CHLORIDE 0.9% 100 ML IV SCH ×2 (11:45→22:40)
[2018-08-17] MEDS: ZONISAMIDE 50 MG CAPSULE PO SCH (21:07)
[2018-08-17] MEDS ORDERED: ACETAMINOPHEN 650 MG SUPP PR PRN (22:00)
[2018-08-17] MEDS: FENTANYL PF 100 MCG/2ML IVPush PRN (22:49)
[2018-08-18] MEDS: ALBUTEROL/IPRATROPIUM 2.5MG/0.5MG, 3 ML INLINE SCH
[2018-08-18] MEDS: HYDROCORTISONE 100 MG INJ. IVPush SCH (02:04)
== END 2018-08-18 06:45 | disposition expired | DRG 871 ==
LOC: ED 11:32 → EDIP 13:35 → ICU 13:48
PROVIDERS: ADMIT Hospitalist; ATTEND Hospitalist
PROC: 0BH17EZ Insertion of Endotracheal Airway into Trachea, Via Natural or Artificial Opening (ICD-10-PCS; principal; 2018-08-15)
PROC: 5A1945Z Respiratory Ventilation, 24-96 Consecutive Hours (ICD-10-PCS; 2018-08-15)
PROC: 02HV33Z Insertion of Infusion Device into Superior Vena Cava, Percutaneous Approach (ICD-10-PCS; 2018-08-15)
PROC: B548ZZA Ultrasonography of Superior Vena Cava, Guidance (ICD-10-PCS; 2018-08-15)
PROC: 0T9B70Z Drainage of Bladder with Drainage Device, Via Natural or Artificial Opening (ICD-10-PCS; 2018-08-15)
PROC: 3E0A3GC Introduction of Other Therapeutic Substance into Bone Marrow, Percutaneous Approach (ICD-10-PCS; 2018-08-15)
DX: A41.9 Sepsis, unspecified organism (principal); J96.00 Acute respiratory failure, unspecified whether with hypoxia or hypercapnia; E43 Unspecified severe protein-calorie malnutrition; G92 Toxic encephalopathy; I50.43 Acute on chronic combined systolic (congestive) and diastolic (congestive) heart failure; J15.1 Pneumonia due to Pseudomonas; N17.0 Acute kidney failure with tubular necrosis; R65.21 Severe sepsis with septic shock; G40.209 Localization-related (focal) (partial) symptomatic epilepsy and epileptic syndromes with complex partial seizures, not intractable, without status epilepticus; D61.818 Other pancytopenia; E27.40 Unspecified adrenocortical insufficiency; E87.0 Hyperosmolality and hypernatremia; E87.2 Acidosis; I13.0 Hypertensive heart and chronic kidney disease with heart failure and stage 1 through stage 4 chronic kidney disease, or unspecified chronic kidney disease; J44.0 Chronic obstructive pulmonary disease with (acute) lower respiratory infection; J98.11 Atelectasis; N39.0 Urinary tract infection, site not specified; Z99.11 Dependence on respirator [ventilator] status; D63.8 Anemia in other chronic diseases classified elsewhere; D75.82 Heparin induced thrombocytopenia (HIT); E03.9 Hypothyroidism, unspecified; E11.22 Type 2 diabetes mellitus with diabetic chronic kidney disease; E11.649 Type 2 diabetes mellitus with hypoglycemia without coma; E78.00 Pure hypercholesterolemia, unspecified; E87.6 Hypokalemia; F01.50 Vascular dementia, unspecified severity, without behavioral disturbance, psychotic disturbance, mood disturbance, and anxiety; F02.80 Dementia in other diseases classified elsewhere, unspecified severity, without behavioral disturbance, psychotic disturbance, mood disturbance, and anxiety; G30.9 Alzheimer's disease, unspecified; I07.1 Rheumatic tricuspid insufficiency; I25.10 Atherosclerotic heart disease of native coronary artery without angina pectoris; I25.5 Ischemic cardiomyopathy; I27.20 Pulmonary hypertension, unspecified; I46.9 Cardiac arrest, cause unspecified; Z51.5 Encounter for palliative care; K21.9 Gastro-esophageal reflux disease without esophagitis; N18.3 Chronic kidney disease, stage 3 (moderate); Z96.641 Presence of right artificial hip joint; Z68.20 Body mass index [BMI] 20.0-20.9, adult; Z87.440 Personal history of urinary (tract) infections; I25.2 Old myocardial infarction; Z90.710 Acquired absence of both cervix and uterus; Z95.0 Presence of cardiac pacemaker; Z95.5 Presence of coronary angioplasty implant and graft; I69.30 Unspecified sequelae of cerebral infarction; Z88.0 Allergy status to penicillin; Z88.5 Allergy status to narcotic agent; Z88.8 Allergy status to other drugs, medicaments and biological substances; Z90.49 Acquired absence of other specified parts of digestive tract
CPT/HCPCS: 31500; 36415; 36556; 36600; 70450; 70486; 71045; 72125; 80048; 80053; 80307; 80329; 81001; 82140; 82330; 82533; 82803; 82962; 83605; 83735; 84100; 84145; 84439; 84443; 84478; 84484; 85025; 85027; 85610; 85730; 87040; 87070; 87077; 87081; 87086; 87106; 87186; 87205; 93005; 94002; 94003; 94640; 96365; 96375; 99291; G0378; J0610; J0696; J1953; J2020; J2185; J2250; J2310; J2704; J3010; J3475; J3480; J7070; J7620; G0480; J0330; J1450; J1720; J2765; J3490; J7030; J7050